=== PATIENT | female | born 1935 | race Caucasian/White ===

== ENCOUNTER → 2016-10-27 | Outpatient (REF) | payer MEDICARE, OTHER ==
[~2016-10-27] MED LIST: /ALEN7SOL OR; /ONDA4TA OR; /WARF25TA OR; ASPI1TAB PO; ASPI81TA83 OR; ATEN25TA; ATEN25TA OR; ATOR1TAB19 PO; BABY81CH; BREO1INH3 INH; CALC1TAB21 PO; CALC600T10; CALCCHW12 OR; CELE20TA PO; COLA100C2 OR; COLACE; CORE25TA PO; COREG PO; FLEC50TA2; FLEC50TA2 OR; HYDR10TA3; HYDR500C PO; HYDROXYUREA; HYDROXYUREA OR; I CAPS; INCR1INH INH; ISOS30TAB PO; KEFL500C OR; LASI40TA OR; LASI40TA PO; LIPI10TA; LIPI10TA OR; LISI10TA4 OR; LISI10TA4 PO; LISI30TA4 PO; LISI5TAB; LISI5TAB OR; LISIPOW PO; MIRA255PW OR; MOM30SS OR; MULTIVIT; MULTIVIT OR; MYRB25TA PO; OSTEO BI FLEX; OSTEOBIFLEX PO; OSTETAB4 PO; OXYC1TAB23 PO; PAIN325T OR; PERC5TAB8 OR; PERC7.5T8 OR; PERCOCET OR; PROA1AER INH; ROPI0.5T PO; SENO8.6T9 OR; SPIRPOW PO; TACLONEX TOP; TRAM50TA2; TYLE325T5 PO; ULTR37.52 PO; ULTRAVATE TOP; ULTRTA OR; VIT D 2000 OR; VITA-121 PO; VITA100C7; VITAMIN D50000 UNT; VITMTA PO; [UNRECOGNIZED DRUG - OTHER] TOP; celexa OR; osteobiflex OR
[2016-10-27 11:58] LABS: ALBUMIN 3.3 GM/DL (3.2-5.2); ALBUMIN/GLOBULIN RATIO 1.43 (1.00-1.93); BILIRUBIN,TOTAL 0.8 MG/DL (0.2-1.0); CALCIUM LEVEL 9.4 MG/DL (8.8-10.2); CREATININE FOR GFR 1.08 MG/DL (0.55-1.02); GLOMERULAR FILTRATION RATE 51.6 (>32); POTASSIUM SERUM 4.7 MEQ/L (3.5-5.1); TOTAL PROTEIN 5.6 GM/DL (6.4-8.2)
== END ==
LOC: M SFHCPLAZ 08:56
PROVIDERS: ATTEND Internal Medicine
DX: I10 Essential (primary) hypertension (principal); E78.00 Pure hypercholesterolemia, unspecified

== ENCOUNTER 2016-11-04 11:56 | Outpatient (RCR) | payer MEDICARE, OTHER | END 2016-11-10 | LOC: M PT 11:56 | PROVIDERS: ATTEND Physician Assistant | DX: Z51.89 Encounter for other specified aftercare (principal); M25.512 Pain in left shoulder; M79.632 Pain in left forearm | CPT/HCPCS: 97022; 97110; 97140; 97161; 97165; G8984; G8985 ==

== ENCOUNTER → 2016-11-06 | Outpatient (REF) | payer MEDICARE, OTHER ==
[2016-11-06 12:57] LABS: PERCENT SATURATION 54.4 % (13.2-37.4)
== END ==
LOC: M LAB REF 12:29
PROVIDERS: ATTEND Internal Medicine Medical Oncology
DX: D47.3 Essential (hemorrhagic) thrombocythemia (principal)

== ENCOUNTER → 2016-11-10 | Outpatient (REF) | payer MEDICARE, OTHER | LOC: M SFHCPLAZ 11:11 | PROVIDERS: ATTEND Dermatology | DX: D22.62 Melanocytic nevi of left upper limb, including shoulder (principal); L57.8 Other skin changes due to chronic exposure to nonionizing radiation; D04.61 Carcinoma in situ of skin of right upper limb, including shoulder; C44.622 Squamous cell carcinoma of skin of right upper limb, including shoulder; C44.599 Other specified malignant neoplasm of skin of other part of trunk ==

== ENCOUNTER → 2017-01-07 | Outpatient (REF) | payer MEDICARE, OTHER | LOC: M LAB REF 10:15 | PROVIDERS: ATTEND Surgery | DX: C44.519 Basal cell carcinoma of skin of other part of trunk (principal) ==

== ENCOUNTER → 2017-02-04 | Outpatient (REF) | payer MEDICARE, OTHER | LOC: M SFHCPLAZ 15:42 | PROVIDERS: ATTEND Nurse Practitioner Adult Health | DX: R35.0 Frequency of micturition (principal) | CPT/HCPCS: 81002; 87088; 87186; G0463 ==

== ENCOUNTER → 2017-03-03 | Day surgery (SDC) | payer MEDICARE, OTHER ==
[~2017-03-03] VITALS: Ht 165.1 cm; Wt 63.5 kg
[~2017-03-03] MED LIST changes: +ACETAMINOPHEN 325 MG TAB PO PRN; +ACETAMINOPHEN TAB 650MG DOSE (2X325MG) PO PRN; +AcetaZOLAMIDE 500 MG ER CAP PO ONE; +BSS with VANC/TOB/EPI for EYE CASES IR ONE; +CYCLOPENTOLATE 2% OPHTH SOLN 2ML BTL As Ordered ONE; +CYCLOPENTOLATE 2% OPHTH SOLN 2ML BTL OD ONE; +D5W/0.2% SODIUM CHLORIDE 1,000 ML IV SCH; +D5W/0.2% SODIUM CHLORIDE 250 ML IV ONE; +HEALON DUET (HEALON 10MG/ML 0.55ML & HEALON ENDOCOAT 30MG/ML 0.85ML) As Ordered ONE; +KETOROLAC 0.5% OPHTH SOLN OD ONE; +LIDOCAINE 1% SDV 5 ML VIAL As Ordered ONE; +LIDOCAINE 4% INJ 5 ML AMP OU ONE; +MIDAZOLAM INJ 2 MG/2 ML VIAL (J2250) As Ordered ONE; +MOXIFLOXACIN IN BSS 0.25MG/0.25ML INTRACAMERAL INJ (OR EYE ONLY)(J2280) As Ordered ONE; +OFLOXACIN 0.3 % (OCUFLOX) OPTH SOL 5ML As Ordered ONE; +OFLOXACIN 0.3 % (OCUFLOX) OPTH SOL 5ML OD ONE; +ONDANSETRON 4MG/2ML VIAL (J2405) IV PRN; +PHENYLEPHRINE 2.5% OPHTH SOL 2ML As Ordered ONE; +PHENYLEPHRINE 2.5% OPHTH SOL 2ML OD ONE; +POVIDONE-IODINE 5% OPHTH PREP SOL 30ML As Ordered ONE; +PROPARACAINE 0.5% OPHTH SOL 15ML OD PRN; +TRIAMCINOLONE PRES FR 40 MG/ML 1ML(TRIESENCE)(OR EYE ONLY)(J3300 PER 1MG) As Ordered ONE; +TRIMETHOBENZAMIDE 300 MG CAP PO PRN; +TROPICAMIDE 1% OPHTH SOLN 2ML As Ordered ONE; +TROPICAMIDE 1% OPHTH SOLN 2ML OD ONE; +fentaNYL 100 MCG/2 ML INJECTION (J3010) As Ordered ONE
[2017-03-03 12:20] VITALS: BP 160/78
--- NOTE | 2017-03-04 07:22 | RO ---
DATE OF PROCEDURE: 03/03/2017 PREPROCEDURE DIAGNOSES: Cataract right eye, myosis. POSTPROCEDURE DIAGNOSES: Cataract right eye, myosis. PROCEDURE: Femtosecond laser and phacoemulsification of the intraocular lens with lens implantation left eye. Intraocular lens power used was Hoya, 22 diopter. SURGEON: Arthur Angulo MD INTAKE COORDINATOR: None. ANESTHESIA: Local IV standby. FINDINGS: Cataract of right eye. COMPLICATIONS: None. DESCRIPTION OF PROCEDURE: The patient was brought to the operating room and laid in supine position. A lid speculum was placed, and patient was brought under the femtosecond laser. After the satisfactory placement of the patient interface, primary incision, secondary incision, and arcuate incisions with lens fragmentation was done without any complication per plan. The patients interface was then removed and lid speculum removed. Patient was placed under the microscope. The eye was prepped and draped in a sterile fashion for ophthalmic surgery. Lid speculum was placed. The secondary incision was opened, and EndoCoat was injected into the anterior chamber. The temporal clear corneal incision was then opened and capsulorrhexis removed, followed by hydrodissection. This was followed by phacoemulsification of the lens within the capsular bag. Cortical material was then aspirated, and Healon was injected into the capsular bag. Intraocular lens was then placed. Excess Healon was aspirated. Wound was hydrated. The lid speculum was removed, and patient was returned to the recovery room in stable condition. ADDENDUM: Because of the small pupil, after entering the anterior chamber with EndoCoat and opening the site port incision, Healon was placed underneath the iris to separate the anterior capsule from the iris and from the temporal clear corneal incision. The Malyugin ring was inserted prior to phacoemulsification. This Malyugin ring was then removed after placement of the intraocular lens.
== END | disposition home or self-care (01) ==
LOC: M SDC 10:20
PROVIDERS: ATTEND Ophthalmology
DX: H26.9 Unspecified cataract (principal); H57.03 Miosis; R94.31 Abnormal electrocardiogram [ECG] [EKG]; I49.9 Cardiac arrhythmia, unspecified; I10 Essential (primary) hypertension; E78.00 Pure hypercholesterolemia, unspecified; R60.0 Localized edema; R23.3 Spontaneous ecchymoses; J44.9 Chronic obstructive pulmonary disease, unspecified; M48.00 Spinal stenosis, site unspecified; Z79.899 Other long term (current) drug therapy; Z79.82 Long term (current) use of aspirin; Z85.828 Personal history of other malignant neoplasm of skin; Z87.81 Personal history of (healed) traumatic fracture; Z90.710 Acquired absence of both cervix and uterus; Z78.0 Asymptomatic menopausal state; Z96.653 Presence of artificial knee joint, bilateral; Z96.642 Presence of left artificial hip joint; Z95.0 Presence of cardiac pacemaker
CPT/HCPCS: 66982; J2250; J2280; J3010; J3300; V2632

== ENCOUNTER → 2017-03-10 | Day surgery (SDC) | payer MEDICARE, OTHER ==
[~2017-03-10] VITALS: Ht 165.1 cm; Wt 63.5 kg
[~2017-03-10] MED LIST changes: -ACETAMINOPHEN TAB 650MG DOSE (2X325MG) PO PRN; -CYCLOPENTOLATE 2% OPHTH SOLN 2ML BTL As Ordered ONE; -CYCLOPENTOLATE 2% OPHTH SOLN 2ML BTL OD ONE; +CYCLOPENTOLATE 2% OPHTH SOLN 2ML BTL OS ONE; -D5W/0.2% SODIUM CHLORIDE 1,000 ML IV SCH; -KETOROLAC 0.5% OPHTH SOLN OD ONE; +KETOROLAC 0.5% OPHTH SOLN OS ONE; +LABETALOL HCL 100 MG/20 ML VIAL As Ordered ONE; -OFLOXACIN 0.3 % (OCUFLOX) OPTH SOL 5ML As Ordered ONE; -OFLOXACIN 0.3 % (OCUFLOX) OPTH SOL 5ML OD ONE; +OFLOXACIN 0.3 % (OCUFLOX) OPTH SOL 5ML OS ONE; -ONDANSETRON 4MG/2ML VIAL (J2405) IV PRN; -PHENYLEPHRINE 2.5% OPHTH SOL 2ML As Ordered ONE; -PHENYLEPHRINE 2.5% OPHTH SOL 2ML OD ONE; +PHENYLEPHRINE 2.5% OPHTH SOL 2ML OS ONE; -PROPARACAINE 0.5% OPHTH SOL 15ML OD PRN; +PROPARACAINE 0.5% OPHTH SOL 15ML OS PRN; -TROPICAMIDE 1% OPHTH SOLN 2ML As Ordered ONE; -TROPICAMIDE 1% OPHTH SOLN 2ML OD ONE; +TROPICAMIDE 1% OPHTH SOLN 2ML OS ONE; +hydrALAZINE INJ 20 MG/ML VIAL As Ordered ONE
--- NOTE | 2017-03-10 11:08 | RO ---
DATE OF PROCEDURE: 03/10/2017 PREPROCEDURE DIAGNOSES: Cataract left eye, myosis of the left eye. POSTPROCEDURE DIAGNOSES: Cataract left eye, myosis of the left eye. PROCEDURE: Femtosecond laser with phacoemulsification, intraocular lens implantation, along with placement of the Malyugin ring. SURGEON: Dr. Arthur Angulo DISTRIBUTOR ADVERTISING MATERIAL: None. ANESTHESIA: Local IV standby. COMPLICATIONS: None. DESCRIPTION OF PROCEDURE: The patient was brought to the operating room and laid in supine position. A lid speculum was placed, and patient was brought under the femtosecond laser. After the satisfactory placement of the patient interface, primary incision, secondary incision, and arcuate incisions with lens fragmentation was done without any complication per plan. The patients interface was then removed and lid speculum removed. Prior to phacoemulsification, Healon was placed between the iris and the anterior capsule and Malyugin ring was inserted because of a small pupil. This ring was then removed after placement of the intraocular lens. Patient was placed under the microscope. The eye was prepped and draped in a sterile fashion for ophthalmic surgery. Lid speculum was placed. The secondary incision was opened and EndoCoat was injected into the anterior chamber. The temporal clear coronal incision was then opened and capsulorrhexis removed, followed by hydrodissection. This was followed by phacoemulsification of the lens within the capsular bag. Cortical material was then aspirated, and Healon was injected into the capsular bag. Intraocular lens was then placed. Excess Healon was aspirated. Wound was hydrated. The lid speculum was removed, and patient was returned to the recovery room in stable condition.
[2017-03-10 11:50] VITALS: BP 175/89
== END | disposition home or self-care (01) ==
LOC: M SDC 08:50
PROVIDERS: ATTEND Ophthalmology
DX: H25.12 Age-related nuclear cataract, left eye (principal); H57.03 Miosis; I11.9 Hypertensive heart disease without heart failure; R94.31 Abnormal electrocardiogram [ECG] [EKG]; E78.00 Pure hypercholesterolemia, unspecified; I49.9 Cardiac arrhythmia, unspecified; M81.0 Age-related osteoporosis without current pathological fracture; E78.5 Hyperlipidemia, unspecified; R60.0 Localized edema; R23.3 Spontaneous ecchymoses; F41.8 Other specified anxiety disorders; M19.90 Unspecified osteoarthritis, unspecified site; G25.81 Restless legs syndrome; J44.9 Chronic obstructive pulmonary disease, unspecified; D47.1 Chronic myeloproliferative disease; Z91.048 Other nonmedicinal substance allergy status; Z79.899 Other long term (current) drug therapy; Z79.82 Long term (current) use of aspirin; Z79.51 Long term (current) use of inhaled steroids; Z95.0 Presence of cardiac pacemaker; Z90.710 Acquired absence of both cervix and uterus; Z96.642 Presence of left artificial hip joint; Z96.653 Presence of artificial knee joint, bilateral; Z87.81 Personal history of (healed) traumatic fracture; Z85.828 Personal history of other malignant neoplasm of skin; Z87.891 Personal history of nicotine dependence; Z86.010 Personal history of colon polyps
CPT/HCPCS: 66982; J2250; J2280; J3010; J3300; V2632

== ENCOUNTER → 2017-04-02 | Outpatient (REF) | payer MEDICARE, OTHER ==
[~2017-04-02] MED LIST changes: -ACETAMINOPHEN 325 MG TAB PO PRN; -AcetaZOLAMIDE 500 MG ER CAP PO ONE; -BSS with VANC/TOB/EPI for EYE CASES IR ONE; -CYCLOPENTOLATE 2% OPHTH SOLN 2ML BTL OS ONE; -D5W/0.2% SODIUM CHLORIDE 250 ML IV ONE; -HEALON DUET (HEALON 10MG/ML 0.55ML & HEALON ENDOCOAT 30MG/ML 0.85ML) As Ordered ONE; -KETOROLAC 0.5% OPHTH SOLN OS ONE; -LABETALOL HCL 100 MG/20 ML VIAL As Ordered ONE; -LIDOCAINE 1% SDV 5 ML VIAL As Ordered ONE; -LIDOCAINE 4% INJ 5 ML AMP OU ONE; -MIDAZOLAM INJ 2 MG/2 ML VIAL (J2250) As Ordered ONE; -MOXIFLOXACIN IN BSS 0.25MG/0.25ML INTRACAMERAL INJ (OR EYE ONLY)(J2280) As Ordered ONE; -OFLOXACIN 0.3 % (OCUFLOX) OPTH SOL 5ML OS ONE; -PHENYLEPHRINE 2.5% OPHTH SOL 2ML OS ONE; -POVIDONE-IODINE 5% OPHTH PREP SOL 30ML As Ordered ONE; -PROPARACAINE 0.5% OPHTH SOL 15ML OS PRN; -TRIAMCINOLONE PRES FR 40 MG/ML 1ML(TRIESENCE)(OR EYE ONLY)(J3300 PER 1MG) As Ordered ONE; -TRIMETHOBENZAMIDE 300 MG CAP PO PRN; -TROPICAMIDE 1% OPHTH SOLN 2ML OS ONE; -fentaNYL 100 MCG/2 ML INJECTION (J3010) As Ordered ONE; -hydrALAZINE INJ 20 MG/ML VIAL As Ordered ONE
[2017-04-02 14:38] LABS: FREE T4 1.32 NG/DL (0.76-1.46)
== END ==
LOC: M LAB REF 12:45
PROVIDERS: ATTEND Internal Medicine Medical Oncology
DX: D47.3 Essential (hemorrhagic) thrombocythemia (principal); E03.9 Hypothyroidism, unspecified

== ENCOUNTER → 2017-05-03 | Outpatient (REF) | payer MEDICARE, OTHER ==
[~2017-05-03] MED LIST changes: -PROA1AER INH; +PROAAER10 INH; -ULTR37.52 PO; +ULTR37.54 PO
== END ==
LOC: M SFHCPLAZ 11:55
PROVIDERS: ATTEND Nurse Practitioner Adult Health
DX: R30.0 Dysuria (principal)

== ENCOUNTER → 2017-05-17 | Outpatient (REF) | payer MEDICARE, OTHER ==
[2017-05-17 14:02] LABS: CALCIUM LEVEL 9.2 MG/DL (8.8-10.2); CREATININE FOR GFR 1.03 MG/DL (0.55-1.02); GLOMERULAR FILTRATION RATE 54.3 (>32); POTASSIUM SERUM 4.6 MEQ/L (3.5-5.1)
== END ==
LOC: M SFHCPLAZ 11:56
PROVIDERS: ATTEND Nurse Practitioner Adult Health
DX: I10 Essential (primary) hypertension (principal)
CPT/HCPCS: 80048; G0463

== ENCOUNTER → 2017-08-19 | Outpatient (CLI) | payer MEDICARE, OTHER ==
--- NOTE | 2017-08-19 16:39 | REP ---
Duplex carotid sonography: History: Transient ischemic attack. No comparison study. Findings: Antegrade flow was observed in both vertebral arteries. Right carotid: The right common carotid artery is unremarkable. There is minimal mixed plaquing in the bulb and proximal ICA on the right side on two-dimensional scanning. Color flow and spectral Doppler interrogation are unremarkable on the right. Velocity chart right carotid: CCA PSV 91 cm/s ICA PSV 97 cm/s ICA EDV 20 cm/s ECA PSV 1106 cm/s Right ICA/CCA ratio normal 1.1. Impression: 16 of 49% category narrowing in the right ICA by Doppler velocity criteria. Left carotid: The left common carotid artery is unremarkable. There is mixed plaquing in the bulb, proximal ICA and proximal ECA on two-dimensional scanning on the left side. Color flow and spectral Doppler interrogation are unremarkable on the left. Velocity chart left carotid: CCA PSV 86 cm/s ICA PSV 87 cm/s ICA EDV 18 cm/s ECA PSV 90 cm/s Left ICA/CCA ratio 1.0. Impression: 16-49% category narrowing in the left ICA by Doppler velocity criteria, probably near the lower end of this range. Signed by Saad Gonzalez MD 08/19/2017 05:28 P
== END ==
LOC: M RAD 10:25
PROVIDERS: ATTEND Internal Medicine
DX: R29.818 Other symptoms and signs involving the nervous system (principal); Z86.73 Personal history of transient ischemic attack (TIA), and cerebral infarction without residual deficits
CPT/HCPCS: 17262; 93880; G0463

== ENCOUNTER → 2017-09-16 | Outpatient (REF) | payer MEDICARE, OTHER | LOC: M SFHCPLAZ 17:02 | PROVIDERS: ATTEND Nurse Practitioner Adult Health | DX: R35.0 Frequency of micturition (principal) ==

== ENCOUNTER → 2017-10-06 | Outpatient (REF) | payer MEDICARE, OTHER ==
[2017-10-06 19:09] LABS: CALCIUM OXALATE CRYSTALS SMALL
== END ==
LOC: M LAB REF 17:01
DX: N32.81 Overactive bladder (principal)
CPT/HCPCS: 81001

== ENCOUNTER → 2017-11-03 | Outpatient (CLI) | payer MEDICARE, OTHER | LOC: M RAD 10:24 | DX: Z12.31 Encounter for screening mammogram for malignant neoplasm of breast (principal) | CPT/HCPCS: 77067 ==

== ENCOUNTER → 2017-11-16 | Outpatient (REF) | payer MEDICARE, OTHER ==
[2017-11-16 18:28] LABS: APPEARANCE, URINE HAZY (CLEAR); BACTERIA, URINE AUTO 1+ (NEGATIVE); BILIRUBIN, URINE AUTO NEGATIVE (NEGATIVE); BLOOD, URINE BLOOD NEGATIVE (NEGATIVE); CALCIUM OXALATE CRYSTALS MODERATE; COLOR, URINE AMBER (YELLOW); GLUCOSE, URINE (UA) AUTO NEGATIVE (NEGATIVE); KETONE, URINE AUTO TRACE mg/dL (NEGATIVE); LEUKOCYTE ESTERASE, URINE AUTO TRACE (NEGATIVE); MUCUS, URINE SMALL (NEGATIVE); NITRITE, URINE AUTO NEGATIVE (NEGATIVE); PROTEIN, URINE AUTO 1+ mg/dL (NEGATIVE); RBC, URINE AUTO 3 /HPF (0-3); SQUAMOUS EPITHELIAL CELL UR AU 0 /HPF (0-6); WBC, URINE AUTO 6 /HPF (0-3)
== END ==
LOC: M LAB REF 17:58
DX: N32.81 Overactive bladder (principal); N39.41 Urge incontinence; N39.42 Incontinence without sensory awareness
CPT/HCPCS: 81001

== ENCOUNTER 2017-12-30 09:24 | Day surgery (SDC) | payer MEDICARE, OTHER ==
[2017-12-30] MEDS: LR 1,000 ML IV (10:14)
[2017-12-30] MEDS ORDERED: MIDAZOLAM INJ 2 MG/2 ML VIAL (J2250) As Ordered (11:39)
[2017-12-30] MEDS ORDERED: PROPOFOL 200 MG/20 ML VIAL As Ordered (11:46)
[2017-12-30] MEDS ORDERED: LIDOCAINE 2% INJ 100 MG/5 ML SDV (FOR ANES.) As Ordered (11:46)
[2017-12-30] MEDS ORDERED: fentaNYL 100 MCG/2 ML INJECTION (J3010) As Ordered (11:46)
[2017-12-30] MEDS: BUPIVACAINE HCL 0.25% 10 ML VIAL As Ordered (11:56)
[2017-12-30] MEDS ORDERED: NORCO, ANEXSIA 5/325MG TABLET (HYDROcodone/ACETAMINOPHEN) PO (13:00)
[2017-12-30] MEDS ORDERED: LR 1,000 ML IV (13:00)
[2017-12-30] MEDS ORDERED: ONDANSETRON 4MG/2ML VIAL (J2405) IV (13:00)
[2017-12-30] MEDS ORDERED: fentaNYL 100 MCG/2 ML INJECTION (J3010) IV (13:00)
[2017-12-30] MEDS: LISINOPRIL 20 MG TAB PO (13:50)
== END 2017-12-30 15:28 | disposition home or self-care (01) ==
LOC: M SDC 09:24
DX: N36.42 Intrinsic sphincter deficiency (ISD) (principal); R32 Unspecified urinary incontinence; I11.9 Hypertensive heart disease without heart failure; E78.00 Pure hypercholesterolemia, unspecified; R94.31 Abnormal electrocardiogram [ECG] [EKG]; I49.9 Cardiac arrhythmia, unspecified; R60.0 Localized edema; R23.3 Spontaneous ecchymoses; F41.9 Anxiety disorder, unspecified; F32.9 Major depressive disorder, single episode, unspecified; Z79.899 Other long term (current) drug therapy; Z79.82 Long term (current) use of aspirin; Z85.828 Personal history of other malignant neoplasm of skin; Z95.0 Presence of cardiac pacemaker; Z96.1 Presence of intraocular lens; Z85.79 Personal history of other malignant neoplasms of lymphoid, hematopoietic and related tissues; Z87.891 Personal history of nicotine dependence; Z87.81 Personal history of (healed) traumatic fracture; Z86.73 Personal history of transient ischemic attack (TIA), and cerebral infarction without residual deficits; Z96.653 Presence of artificial knee joint, bilateral; Z96.642 Presence of left artificial hip joint; Z90.710 Acquired absence of both cervix and uterus
CPT/HCPCS: 51715

== ENCOUNTER → 2018-01-31 | Outpatient (REF) | payer MEDICARE, OTHER ==
[2018-01-31 13:29] LABS: ALBUMIN 3.7 GM/DL (3.2-5.2); ALBUMIN/GLOBULIN RATIO 1.19 (1.00-1.93); ALKALINE PHOSPHATASE 74 U/L (45-117); ALT/SGPT 24 U/L (12-78); ANION GAP 7 MEQ/L (8-16); AST/SGOT 25 U/L (7-37); BILIRUBIN,TOTAL 1.1 MG/DL (0.2-1.0); BLOOD UREA NITROGEN 18 MG/DL (7-18); CALCIUM LEVEL 9.4 MG/DL (8.8-10.2); CARBON DIOXIDE LEVEL 29 MEQ/L (21-32); CHLORIDE LEVEL 104 MEQ/L (98-107); CHOLESTEROL LEVEL 179 MG/DL (<200); CREATININE FOR GFR 1.02 MG/DL (0.55-1.30); GLUCOSE, FASTING 93 MG/DL (70-100); HDL CHOLESTEROL 57 MG/DL (>40); LDL CHOLESTEROL 107.6 MG/DL (<100); MAGNESIUM LEVEL 2.4 MG/DL (1.8-2.4); NON-HDL-C 122 MG/DL; POTASSIUM SERUM 4.7 MEQ/L (3.5-5.1); SODIUM LEVEL 140 MEQ/L (136-145); TOTAL PROTEIN 6.8 GM/DL (6.4-8.2); TRIGLYCERIDES LEVEL 72 MG/DL (<150)
== END ==
LOC: M SFHCPLAZ 09:10
DX: I10 Essential (primary) hypertension (principal); E78.00 Pure hypercholesterolemia, unspecified; I47.1 Supraventricular tachycardia; I49.5 Sick sinus syndrome
CPT/HCPCS: 83735

== ENCOUNTER 2018-02-24 21:09 | Inpatient (IN) | payer MEDICARE, OTHER ==
[2018-02-24 21:52] LABS: BASO # 0.1 10^3/uL (0.0-0.2); BASO % 0.9 % (0.0-1.0); EOS # 0.2 10^3/uL (0.0-0.50); EOS % 2.1 % (0.0-3.0); HEMATOCRIT 38.6 % (36.0-47.0); HEMOGLOBIN 12.6 g/dl (12.0-15.5); IMMATURE GRANULOCYTE % 0.4 % (0-3.0); LYMPH # 1.3 10^3/uL (1.5-4.5); LYMPH % 14.7 % (24.0-44.0); MEAN CORPUSCULAR HEMOGLOBIN 36.3 pg (27.0-33.0); MEAN CORPUSCULAR HGB CONC 32.6 g/dl (32.0-36.5); MEAN CORPUSCULAR VOLUME 111.2 fl (80.0-96.0); MONO # 0.6 10^3/uL (0.0-0.8); MONO % 6.9 % (0.0-5.0); NEUTROPHILS # 6.7 10^3/uL (1.8-7.7); PLATELET COUNT, AUTOMATED 435 10^3/uL (150-450); RED BLOOD COUNT 3.47 10^6/uL (4.00-5.40)
[2018-02-24 21:56] LABS: PROTHROMBIN TIME 13.3 SECONDS (12.4-14.5)
[2018-02-24 21:57] LABS: PARTIAL THROMBOPLASTIN TIME 31.1 SECONDS (26.8-37.9)
[2018-02-24 22:10] LABS: ALBUMIN 3.5 GM/DL (3.2-5.2); ALBUMIN/GLOBULIN RATIO 1.03 (1.00-1.93); ALKALINE PHOSPHATASE 84 U/L (45-117); ALT/SGPT 27 U/L (12-78); ANION GAP 5 MEQ/L (8-16); AST/SGOT 26 U/L (7-37); BILIRUBIN,DIRECT 0.1 MG/DL (0.0-0.2); BILIRUBIN,TOTAL 0.7 MG/DL (0.2-1.0); BLOOD UREA NITROGEN 23 MG/DL (7-18); CALCIUM LEVEL 8.8 MG/DL (8.8-10.2); CARBON DIOXIDE LEVEL 29 MEQ/L (21-32); CHLORIDE LEVEL 107 MEQ/L (98-107); CK-MB VALUE MASS < 1.0 NG/ML (<3.6); CPK CREATINE PHOSPHOKINASE 46 U/L (26-192); CREATININE FOR GFR 1.07 MG/DL (0.55-1.30); GLOMERULAR FILTRATION RATE 51.9 (>32); GLUCOSE, FASTING 107 MG/DL (70-100); MB/CK RELATIVE INDEX 2.17 (< OR =4); SODIUM LEVEL 141 MEQ/L (136-145); TOTAL PROTEIN 6.9 GM/DL (6.4-8.2); TROPONIN I < 0.02 NG/ML (< 0.10)
[2018-02-24] MEDS: LABETALOL HCL 100 MG/20 ML VIAL IV ×2 (22:12→22:42)
[2018-02-24] MEDS ORDERED: zolPIDEM TARTRATE 5 MG TAB PO (23:15)
[2018-02-25] MEDS: FUROSEMIDE 20 MG/2 ML VIAL (J1940) IV (00:52)
[2018-02-25] MEDS: hydrALAZINE INJ 20 MG/ML VIAL IV (00:54)
[2018-02-25] MEDS: niCARdipine IV 40 MG in APPROPRIATE DILUENT 1 EA IV (02:41)
[2018-02-25] MEDS: ACETAMINOPHEN TAB 650MG DOSE (2X325MG) PO (05:06)
[2018-02-25 05:34] LABS: ANION GAP 8 MEQ/L (8-16); BLOOD UREA NITROGEN 24 MG/DL (7-18); CARBON DIOXIDE LEVEL 27 MEQ/L (21-32); CHLORIDE LEVEL 105 MEQ/L (98-107); CREATININE FOR GFR 0.89 MG/DL (0.55-1.30); GLOMERULAR FILTRATION RATE > 60.0 (>32); GLUCOSE, FASTING 113 MG/DL (70-100); POTASSIUM SERUM 3.7 MEQ/L (3.5-5.1); SODIUM LEVEL 140 MEQ/L (136-145); TROPONIN I < 0.02 NG/ML (< 0.10)
[2018-02-25] MEDS: rOPINIRole 2MG TAB PO (07:14)
[2018-02-25] MEDS: MULTIVITAMINS/MINERALS THERAP 1 TAB PO (09:01)
[2018-02-25] MEDS: ASPIRIN 81 MG ENTERIC TAB PO (09:01)
[2018-02-25] MEDS: VITAMIN D 1,000 INTERNATIONAL UNITS TABLET PO (09:01)
[2018-02-25] MEDS: LISINOPRIL 20 MG TAB PO (09:01)
[2018-02-25] MEDS: CYANOCOBALAMIN 500 MCG TAB PO (09:02)
[2018-02-25] MEDS: CitaloPRAM (CeleXA) 20 MG TAB PO (09:02)
[2018-02-25] MEDS: HYDROXYUREA 500 MG CAP PO (09:02)
[2018-02-25] MEDS: ATORVASTATIN 10 MG TAB PO (09:02)
[2018-02-25] MEDS: ISOSORBIDE MON. (IMDUR) 30 MG XR TAB PO (09:03)
[2018-02-25] MEDS: CARVedilol 12.5 MG TAB PO (09:03)
[2018-02-25] MEDS: ENOXAPARIN 30 MG/0.3 ML SYR (J1650) SC (09:03)
[2018-02-25 13:50] LABS: TROPONIN I 0.02 NG/ML (< 0.10)
[2018-02-25] MEDS: ULTRACET TAB PO (17:52)
[2018-02-25 22:06] LABS: TROPONIN I 0.02 NG/ML (< 0.10)
[2018-02-26 04:39] LABS: BASO # 0.1 10^3/uL (0.0-0.2); BASO % 0.6 % (0.0-1.0); EOS # 0.2 10^3/uL (0.0-0.50); EOS % 2.1 % (0.0-3.0); HEMATOCRIT 36.7 % (36.0-47.0); HEMOGLOBIN 12.2 g/dl (12.0-15.5); IMMATURE GRANULOCYTE % 0.7 % (0-3.0); LYMPH # 1.5 10^3/uL (1.5-4.5); MEAN CORPUSCULAR HEMOGLOBIN 36.4 pg (27.0-33.0); MEAN CORPUSCULAR HGB CONC 33.2 g/dl (32.0-36.5); MEAN CORPUSCULAR VOLUME 109.6 fl (80.0-96.0); MONO # 0.7 10^3/uL (0.0-0.8); MONO % 6.7 % (0.0-5.0); NEUTROPHILS # 7.5 10^3/uL (1.8-7.7); NEUTROPHILS % 74.9 % (36.0-66.0); PLATELET COUNT, AUTOMATED 382 10^3/uL (150-450); RED BLOOD COUNT 3.35 10^6/uL (4.00-5.40); RED CELL DISTRIBUTION WIDTH 14.8 % (11.5-14.5)
[2018-02-26 04:59] LABS: ANION GAP 5 MEQ/L (8-16); BLOOD UREA NITROGEN 24 MG/DL (7-18); CALCIUM LEVEL 8.7 MG/DL (8.8-10.2); CARBON DIOXIDE LEVEL 31 MEQ/L (21-32); CHLORIDE LEVEL 104 MEQ/L (98-107); CREATININE FOR GFR 0.93 MG/DL (0.55-1.30); GLOMERULAR FILTRATION RATE > 60.0 (>32); GLUCOSE, FASTING 94 MG/DL (70-100); POTASSIUM SERUM 3.7 MEQ/L (3.5-5.1); SODIUM LEVEL 140 MEQ/L (136-145)
[2018-02-26] MEDS: ENOXAPARIN 30 MG/0.3 ML SYR (J1650) SC (08:32)
[2018-02-26] MEDS: HYDROXYUREA 500 MG CAP PO (08:33)
[2018-02-26] MEDS: rOPINIRole 2MG TAB PO (08:33)
[2018-02-26] MEDS: ISOSORBIDE MON. (IMDUR) 30 MG XR TAB PO (08:33)
[2018-02-26] MEDS: CitaloPRAM (CeleXA) 20 MG TAB PO (08:33)
[2018-02-26] MEDS: LISINOPRIL 20 MG TAB PO (08:33)
[2018-02-26] MEDS: CYANOCOBALAMIN 500 MCG TAB PO (08:34)
[2018-02-26] MEDS: VITAMIN D 1,000 INTERNATIONAL UNITS TABLET PO (08:34)
[2018-02-26] MEDS: MULTIVITAMINS/MINERALS THERAP 1 TAB PO (08:34)
[2018-02-26] MEDS: ASPIRIN 81 MG ENTERIC TAB PO (08:34)
[2018-02-26] MEDS: CARVedilol 12.5 MG TAB PO (08:35)
[2018-03-02] MEDS ORDERED: HYDROXYUREA 500 MG CAP PO (09:00)
== END 2018-02-26 10:37 | disposition home or self-care (01) | DRG 305 ==
LOC: M ICU 02-25 04:16 → M ED 21:09 → M ED INP 23:14
DX: I16.0 Hypertensive urgency (principal); I10 Essential (primary) hypertension; E78.5 Hyperlipidemia, unspecified; Z66 Do not resuscitate; R32 Unspecified urinary incontinence; Z96.653 Presence of artificial knee joint, bilateral; Z96.642 Presence of left artificial hip joint; Z95.0 Presence of cardiac pacemaker; Z79.899 Other long term (current) drug therapy

== ENCOUNTER → 2018-05-25 | Outpatient (REF) | payer MEDICARE, OTHER | LOC: M SFHCLERA 19:13 | DX: D04.4 Carcinoma in situ of skin of scalp and neck (principal); D48.5 Neoplasm of uncertain behavior of skin; C44.722 Squamous cell carcinoma of skin of right lower limb, including hip; D04.61 Carcinoma in situ of skin of right upper limb, including shoulder; D04.62 Carcinoma in situ of skin of left upper limb, including shoulder | CPT/HCPCS: 88305 ==

== ENCOUNTER 2018-05-30 07:51 | Day surgery (SDC) | payer MEDICARE, OTHER ==
[~2018-05-30 07:51] MED LIST changes: -/ALEN7SOL OR; -/ONDA4TA OR; -/WARF25TA OR; -ASPI1TAB PO; -ASPI81TA83 OR; -ATEN25TA; -ATEN25TA OR; -ATOR1TAB19 PO; -BABY81CH; -BREO1INH3 INH; -CALC1TAB21 PO; -CALC600T10; -CALCCHW12 OR; -CELE20TA PO; -COLA100C2 OR; -COLACE; -CORE25TA PO; -COREG PO; -FLEC50TA2; -FLEC50TA2 OR; -HYDR10TA3; -HYDR500C PO; -HYDROXYUREA; -HYDROXYUREA OR; -I CAPS; -INCR1INH INH; -ISOS30TAB PO; -KEFL500C OR; -LASI40TA OR; -LASI40TA PO; -LIPI10TA; -LIPI10TA OR; -LISI10TA4 OR; -LISI10TA4 PO; -LISI30TA4 PO; -LISI5TAB; -LISI5TAB OR; -LISIPOW PO; -MIRA255PW OR; -MOM30SS OR; -MULTIVIT; -MULTIVIT OR; -MYRB25TA PO; +NS 1,000 ML IV; -OSTEO BI FLEX; -OSTEOBIFLEX PO; -OSTETAB4 PO; -OXYC1TAB23 PO; -PAIN325T OR; -PERC5TAB8 OR; -PERC7.5T8 OR; -PERCOCET OR; -PROAAER10 INH; -ROPI0.5T PO; -SENO8.6T9 OR; -SPIRPOW PO; -TACLONEX TOP; -TRAM50TA2; -TYLE325T5 PO; -ULTR37.54 PO; -ULTRAVATE TOP; -ULTRTA OR; -VIT D 2000 OR; -VITA-121 PO; -VITA100C7; -VITAMIN D50000 UNT; -VITMTA PO; -[UNRECOGNIZED DRUG - OTHER] TOP; -celexa OR; -osteobiflex OR
[2018-05-30] MEDS ORDERED: LIDOCAINE 2% INJ 100 MG/5 ML SDV (FOR ANES.) As Ordered (09:28)
[2018-05-30] MEDS ORDERED: PROPOFOL 500 MG/50 ML VIAL As Ordered (09:28)
== END 2018-05-30 10:44 | disposition home or self-care (01) ==
LOC: M OPP 07:51
DX: K64.0 First degree hemorrhoids (principal); D12.0 Benign neoplasm of cecum; K57.30 Diverticulosis of large intestine without perforation or abscess without bleeding; Z86.010 Personal history of colon polyps; D64.9 Anemia, unspecified; K63.5 Polyp of colon; I10 Essential (primary) hypertension; D47.1 Chronic myeloproliferative disease; J44.9 Chronic obstructive pulmonary disease, unspecified; R00.1 Bradycardia, unspecified; M48.00 Spinal stenosis, site unspecified; E78.5 Hyperlipidemia, unspecified; M81.0 Age-related osteoporosis without current pathological fracture; Z79.82 Long term (current) use of aspirin; Z79.891 Long term (current) use of opiate analgesic; Z79.899 Other long term (current) drug therapy; Z88.8 Allergy status to other drugs, medicaments and biological substances; Z91.89 Other specified personal risk factors, not elsewhere classified; Z90.710 Acquired absence of both cervix and uterus; Z95.0 Presence of cardiac pacemaker; Z86.73 Personal history of transient ischemic attack (TIA), and cerebral infarction without residual deficits; Z85.9 Personal history of malignant neoplasm, unspecified; Z86.2 Personal history of diseases of the blood and blood-forming organs and certain disorders involving the immune mechanism; Z96.653 Presence of artificial knee joint, bilateral; Z96.642 Presence of left artificial hip joint
CPT/HCPCS: 45385

== ENCOUNTER → 2018-06-29 | Outpatient (REF) | payer MEDICARE, OTHER ==
[2018-06-29 13:46] LABS: APPEARANCE, URINE CLEAR (CLEAR); BACTERIA, URINE AUTO NEGATIVE (NEGATIVE); BILIRUBIN, URINE AUTO NEGATIVE (NEGATIVE); BLOOD, URINE BLOOD NEGATIVE (NEGATIVE); COLOR, URINE YELLOW (YELLOW); GLUCOSE, URINE (UA) AUTO NEGATIVE (NEGATIVE); KETONE, URINE AUTO NEGATIVE (NEGATIVE); LEUKOCYTE ESTERASE, URINE AUTO NEGATIVE (NEGATIVE); NITRITE, URINE AUTO NEGATIVE (NEGATIVE); PROTEIN, URINE AUTO NEGATIVE (NEGATIVE); RBC, URINE AUTO 1 /HPF (0-3); SPECIFIC GRAVITY URINE AUTO 1.016 (1.002-1.035); SQUAMOUS EPITHELIAL CELL UR AU 0 /HPF (0-6); WBC, URINE AUTO 5 /HPF (0-3)
== END ==
LOC: M SFHCPLAZ 12:22
DX: R30.0 Dysuria (principal); I10 Essential (primary) hypertension
CPT/HCPCS: 81001

== ENCOUNTER 2018-07-22 23:34 | Emergency (ER) | payer MEDICARE, OTHER ==
[2018-07-23 01:04] LABS: BASO % 0.5 % (0.0-1.0); EOS # 0.1 10^3/uL (0.0-0.50); EOS % 2.1 % (0.0-3.0); HEMATOCRIT 33.1 % (36.0-47.0); HEMOGLOBIN 11.2 g/dl (12.0-15.5); IMMATURE GRANULOCYTE % 0.5 % (0-3.0); LYMPH # 1.2 10^3/uL (1.5-4.5); LYMPH % 20.8 % (24.0-44.0); MEAN CORPUSCULAR HEMOGLOBIN 38.6 pg (27.0-33.0); MEAN CORPUSCULAR HGB CONC 33.8 g/dl (32.0-36.5); MONO # 0.5 10^3/uL (0.0-0.8); MONO % 8.2 % (0.0-5.0); NEUTROPHILS # 3.8 10^3/uL (1.8-7.7); NEUTROPHILS % 67.9 % (36.0-66.0); PLATELET COUNT, AUTOMATED 281 10^3/uL (150-450); RED CELL DISTRIBUTION WIDTH 15.8 % (11.5-14.5); WHITE BLOOD COUNT 5.6 10^3/uL (4.0-10.0)
[2018-07-23 01:07] LABS: ADD MORPHOLOGY? YES; MEAN CORPUSCULAR VOLUME 114.1 fl (80.0-96.0); POSITIVE MORPH POS FLAG
[2018-07-23 01:31] LABS: ANION GAP 7 MEQ/L (8-16); BLOOD UREA NITROGEN 29 MG/DL (7-18); CALCIUM LEVEL 8.7 MG/DL (8.8-10.2); CARBON DIOXIDE LEVEL 27 MEQ/L (21-32); CHLORIDE LEVEL 106 MEQ/L (98-107); CPK CREATINE PHOSPHOKINASE 38 U/L (26-192); CREATININE FOR GFR 1.11 MG/DL (0.55-1.30); GLOMERULAR FILTRATION RATE 49.7 (>32); GLUCOSE, FASTING 87 MG/DL (70-100); MB/CK RELATIVE INDEX 2.63 (< OR =4); POTASSIUM SERUM 4.4 MEQ/L (3.5-5.1); SODIUM LEVEL 140 MEQ/L (136-145); TROPONIN I < 0.02 NG/ML (< 0.10)
[2018-07-23 01:40] LABS: ANISOCYTOSIS 1+
[2018-07-23 01:42] LABS: PLATELET ESTIMATE NORMAL (NORMAL)
== END 2018-07-23 02:18 | disposition home or self-care (01) ==
LOC: M ED 23:34
DX: I10 Essential (primary) hypertension (principal); Z79.899 Other long term (current) drug therapy; Z79.82 Long term (current) use of aspirin
CPT/HCPCS: 93005

== ENCOUNTER → 2018-08-17 | Outpatient (REF) | payer MEDICARE, OTHER ==
[2018-08-17 12:12] LABS: ALBUMIN 3.1 GM/DL (3.2-5.2); ALBUMIN/GLOBULIN RATIO 1.07 (1.00-1.93); ALKALINE PHOSPHATASE 72 U/L (45-117); ALT/SGPT 31 U/L (12-78); ANION GAP 5 MEQ/L (8-16); AST/SGOT 31 U/L (7-37); BILIRUBIN,TOTAL 1.2 MG/DL (0.2-1.0); BLOOD UREA NITROGEN 23 MG/DL (7-18); CALCIUM LEVEL 9.1 MG/DL (8.8-10.2); CARBON DIOXIDE LEVEL 31 MEQ/L (21-32); CHLORIDE LEVEL 106 MEQ/L (98-107); CREATININE FOR GFR 0.97 MG/DL (0.55-1.30); GLOMERULAR FILTRATION RATE 58.1 (>32); GLUCOSE, FASTING 93 MG/DL (70-100); MAGNESIUM LEVEL 2.3 MG/DL (1.8-2.4); POTASSIUM SERUM 5.2 MEQ/L (3.5-5.1); SODIUM LEVEL 142 MEQ/L (136-145)
== END ==
LOC: M SFHCPLAZ 09:22
DX: I10 Essential (primary) hypertension (principal)
CPT/HCPCS: 83735

== ENCOUNTER 2018-10-17 03:37 | Emergency (ER) | payer MEDICARE, OTHER ==
[~2018-10-17] VITALS: Ht 167.6 cm; Wt 63.6 kg
[~2018-10-17 03:37] MED LIST changes: +/ALEN7SOL OR; +/ONDA4TA OR; +/WARF25TA OR; +AMLO25TA PO; +ASPI1TAB PO; +ASPI81TA83 OR; +ASPI81TAEC PO; +ATEN25TA; +ATEN25TA OR; +ATOR1TAB19 PO; +BABY81CH; +BREO1INH INH; +BREO1INH3 INH; +CALC1TAB21 PO; +CALC1TAB30 PO; +CALC600T10; +CALCCHW12 OR; +CARV12.5 PO; +CELE20TA PO; +COLA100C2 OR; +COLACE; +CORE25TA PO; +COREG PO; +FISH1000 PO; +FLEC50TA2; +FLEC50TA2 OR; +HYDR10TA3; +HYDR500C PO; +HYDR500C3 PO; +HYDROXYUREA; +HYDROXYUREA OR; +I CAPS; +INCR1INH INH; +ISOS30TA4 PO; +ISOS30TAB PO; +KEFL500C OR; +LASI20TA3 PO; +LASI40TA OR; +LASI40TA9 PO; +LIPI10TA; +LIPI10TA OR; +LISI-538 PO; +LISI-672 PO; +LISI10TA4 OR; +LISI10TA4 PO; +LISI5TAB; +LISI5TAB OR; +LISIPOW PO; +MIRA255PW OR; +MOM30SS OR; +MULTIVIT; +MULTIVIT OR; +MYRB25TA PO; -NS 1,000 ML IV; +OSTEO BI FLEX; +OSTEOBIFLEX PO; +OSTETAB4 PO; +OXYC1TAB23 PO; +PAIN325T OR; +PERC5TAB8 OR; +PERC7.5T8 OR; +PERCOCET OR; +PROAAER10 INH; +ROPI0.5T PO; +ROPI4TAB21 PO; +SENO8.6T9 OR; +SPIRPOW PO; +TACLONEX TOP; +TRAM50TA2; +TYLE325T5 PO; +ULTR37.54 PO; +ULTRAVATE TOP; +ULTRTA OR; +VIT D 2000 OR; +VITA-121 PO; +VITA10002 PO; +VITA100C7; +VITA200015 PO; +VITAMIN D50000 UNT; +VITMTA PO; +[UNRECOGNIZED DRUG - CODE] EXT; +[UNRECOGNIZED DRUG - OTHER] TOP; +celexa OR; +osteobiflex OR
[2018-10-17] MEDS ORDERED: cloNIDine 0.1 MG TAB PO ONE (05:30)
[2018-10-17 06:30] VITALS: BP 132/76
[2018-10-19] MEDS ORDERED: HYDR500C PO (10:40)
== END 2018-10-17 06:48 | disposition home or self-care (01) ==
LOC: M ED 03:37
DX: I10 Essential (primary) hypertension (principal); F41.9 Anxiety disorder, unspecified; E78.5 Hyperlipidemia, unspecified; J44.9 Chronic obstructive pulmonary disease, unspecified; M19.90 Unspecified osteoarthritis, unspecified site

== ENCOUNTER → 2018-10-20 | Outpatient (REF) | payer MEDICARE, OTHER ==
[2018-10-26 00:09] LABS: VANILLYLMANDELIC ACID,URINE 3.4 mg/L (Undefined); VANILLYLMANDELIC ACID,URINE 24 2.4 mg/24 hr (0.0-7.5)
== END ==
LOC: M SFHCPLAZ 10:23
PROVIDERS: ATTEND Nurse Practitioner Adult Health
DX: I10 Essential (primary) hypertension (principal)

== ENCOUNTER 2018-11-30 09:46 | Outpatient (RCR) | payer MEDICARE, OTHER | END 2018-12-08 | LOC: M PT 09:46 | PROVIDERS: ATTEND Internal Medicine | DX: Z51.89 Encounter for other specified aftercare (principal); N39.3 Stress incontinence (female) (male) ==

== ENCOUNTER 2018-12-28 15:00 | Outpatient (RCR) | payer MEDICARE, OTHER | END 2019-01-08 | LOC: M PT 15:00 | PROVIDERS: ATTEND Internal Medicine | DX: Z51.89 Encounter for other specified aftercare (principal); N39.3 Stress incontinence (female) (male) ==

== ENCOUNTER → 2019-01-11 | Outpatient (REF) | payer MEDICARE, OTHER ==
[~2019-01-11] MED LIST changes: -/ONDA4TA OR; -/WARF25TA OR; -ASPI1TAB PO; +ASPI81TA26 PO; +COUM1TAB18 OR; -MIRA255PW OR; +ONDA-1 OR; +OXYC1TAB23 OR; -PERCOCET OR; +POLY1POW4 OR
== END ==
LOC: M SFHCPLAZ 10:29
PROVIDERS: ATTEND Dermatology
DX: C44.320 Squamous cell carcinoma of skin of unspecified parts of face (principal); C44.521 Squamous cell carcinoma of skin of breast; L57.0 Actinic keratosis

== ENCOUNTER → 2019-03-07 | Outpatient (REF) | payer MEDICARE, OTHER ==
[~2019-03-07] MED LIST changes: +CYAN100049 PO; -VITA10002 PO
== END ==
LOC: M SFHCPLAZ 17:40
PROVIDERS: ATTEND Dermatology
DX: D23.30 Other benign neoplasm of skin of unspecified part of face (principal)

== ENCOUNTER → 2019-03-09 | Outpatient (CLI) | payer MEDICARE, OTHER ==
[~2019-03-09] MED LIST changes: -CYAN100049 PO; +VITA10002 PO
--- NOTE | 2019-03-09 11:46 | REP ---
Chest two views HISTORY: COPD Comparison: 10/12/2018 An increase in interstitial markings is present in the lungs consistent with chronic interstitial change. The cardiac silhouette is enlarged. The pulmonary vasculature is normal in appearance. The bony structure is intact. A cardiac pacemaker is present. IMPRESSION: 1. Chronic interstitial change. 2. Cardiomegaly. Electronically Signed by Maximilian Perry MD 03/09/2019 11:37 A
== END ==
LOC: M SMT 10:12
PROVIDERS: ATTEND Internal Medicine Pulmonary Disease
DX: J44.9 Chronic obstructive pulmonary disease, unspecified (principal); R06.00 Dyspnea, unspecified; I51.7 Cardiomegaly

== ENCOUNTER → 2019-03-16 | Outpatient (CLI) | payer MEDICARE, OTHER ==
[2019-03-16 09:48] LABS: BASO # 0.1 10^3/uL (0.0-0.2); BASO % 0.7 % (0.0-1.0); EOS # 0.2 10^3/uL (0.0-0.50); EOS % 2.4 % (0.0-3.0); HEMATOCRIT 35.4 % (36.0-47.0); HEMOGLOBIN 11.8 g/dl (12.0-15.5); LYMPH % 15.3 % (24.0-44.0); MEAN CORPUSCULAR HEMOGLOBIN 41.3 pg (27.0-33.0); MEAN CORPUSCULAR HGB CONC 33.3 g/dl (32.0-36.5); MONO # 0.6 10^3/uL (0.0-0.8); MONO % 9.2 % (0.0-5.0); NEUTROPHILS # 4.8 10^3/uL (1.8-7.7); NEUTROPHILS % 71.5 % (36.0-66.0); PLATELET COUNT, AUTOMATED 453 10^3/uL (150-450); RED BLOOD COUNT 2.86 10^6/uL (4.00-5.40); WHITE BLOOD COUNT 6.7 10^3/uL (4.0-10.0)
[2019-03-16 10:05] LABS: MEAN CORPUSCULAR VOLUME 123.8 fl (80.0-96.0)
[2019-03-16 10:12] LABS: ALBUMIN 3.2 GM/DL (3.2-5.2); BILIRUBIN,TOTAL 0.7 MG/DL (0.2-1.0); CALCIUM LEVEL 9.2 MG/DL (8.8-10.2); CREATININE FOR GFR 0.98 MG/DL (0.55-1.30); GLOMERULAR FILTRATION RATE 57.3 (>32); POTASSIUM SERUM 4.7 MEQ/L (3.5-5.1)
[2019-03-16 10:43] LABS: ANISOCYTOSIS 1+; PLATELET ESTIMATE NORMAL (NORMAL)
== END ==
LOC: M LAB 08:55
PROVIDERS: ATTEND Nurse Practitioner Adult Health
DX: E78.5 Hyperlipidemia, unspecified (principal); I10 Essential (primary) hypertension; R06.02 Shortness of breath

== ENCOUNTER → 2019-04-11 | Outpatient (REF) | payer MEDICARE, OTHER ==
[~2019-04-11] MED LIST changes: +CYAN100049 PO; -VITA10002 PO
== END ==
LOC: M SFHCPLAZ 17:07
PROVIDERS: ATTEND Dermatology
DX: D23.5 Other benign neoplasm of skin of trunk (principal)

== ENCOUNTER → 2019-04-20 | Outpatient (REF) | payer MEDICARE, OTHER ==
[2019-04-20 12:55] LABS: CHOLESTEROL RISK RATIO 2.767 (<5); MAGNESIUM LEVEL 2.2 MG/DL (1.8-2.4)
== END ==
LOC: M SFHCPLAZ 08:19
PROVIDERS: ATTEND Internal Medicine
DX: E78.00 Pure hypercholesterolemia, unspecified (principal); I10 Essential (primary) hypertension

== ENCOUNTER 2019-08-22 07:54 | Emergency (ER) | payer MEDICARE, OTHER ==
[~2019-08-22] VITALS: Ht 165.1 cm; Wt 68.3 kg
[2019-08-22] MEDS ORDERED: AMLO5TAB6 PO (08:50)
--- NOTE | 2019-08-22 09:44 | REP ---
Single view chest: 08/22/2019. Indication: Hypertension. Comparison: 03/09/2019. Findings: Elevated right hemidiaphragm and cardiomegaly are redemonstrated. Left-sided dual lead pacer is unchanged in configuration. The leads intact. No air space consolidation is present. Chronic interstitial markings are redemonstrated. Right greater than left chronic glenohumeral degenerative sequelae are noted. Impression: There is no evidence of acute cardiopulmonary process. Cardiomegaly. Stable. Additional chronic changes are stable as well. Electronically Signed by Edi Tay DO 08/22/2019 09:36 A
[2019-08-22 11:13] LABS: ALBUMIN 3.7 GM/DL (3.2-5.2); ALT/SGPT 28 U/L (12-78); BILIRUBIN,TOTAL 1.2 MG/DL (0.2-1.0); BLOOD UREA NITROGEN 21 MG/DL (7-18); CALCIUM LEVEL 9.4 MG/DL (8.8-10.2); CARBON DIOXIDE LEVEL 28 MEQ/L (21-32); CHLORIDE LEVEL 106 MEQ/L (98-107); CREATININE FOR GFR 0.88 MG/DL (0.55-1.30); GLOMERULAR FILTRATION RATE > 60.0 (>32); GLUCOSE, FASTING 95 MG/DL (70-100); POTASSIUM SERUM 5.1 MEQ/L (3.5-5.1); SODIUM LEVEL 138 MEQ/L (136-145)
[2019-08-22 12:09] VITALS: BP 179/80
== END 2019-08-22 12:21 | disposition home or self-care (01) ==
LOC: M ED 07:54
DX: I10 Essential (primary) hypertension (principal); J44.9 Chronic obstructive pulmonary disease, unspecified; F33.9 Major depressive disorder, recurrent, unspecified; E78.00 Pure hypercholesterolemia, unspecified; G25.81 Restless legs syndrome; Z79.899 Other long term (current) drug therapy; Z79.82 Long term (current) use of aspirin

== ENCOUNTER → 2019-11-04 | Outpatient (REF) | payer MEDICARE, OTHER ==
[~2019-11-04] MED LIST changes: +AMLO5TAB6 PO
== END ==
LOC: M LAB REF 15:14
PROVIDERS: ATTEND Internal Medicine Hematology & Oncology
DX: D69.3 Immune thrombocytopenic purpura (principal)

== ENCOUNTER → 2019-12-11 | Outpatient (CLI) | payer MEDICARE, OTHER ==
[~2019-12-11] MED LIST changes: +CITA40TA4 PO; -ROPI0.5T PO; +ROPI0.5T3 PO
[2019-12-11 10:21] LABS: ALBUMIN 3.4 GM/DL (3.2-5.2); BILIRUBIN,TOTAL 0.8 MG/DL (0.2-1.0); CHOLESTEROL RISK RATIO 2.807 (<5); CREATININE FOR GFR 1.08 MG/DL (0.55-1.30); GLOMERULAR FILTRATION RATE 51.2 (>32); POTASSIUM SERUM 4.5 MEQ/L (3.5-5.1); TOTAL PROTEIN 5.8 GM/DL (6.4-8.2)
== END ==
LOC: M LAB 09:16
PROVIDERS: ATTEND Internal Medicine
DX: E78.00 Pure hypercholesterolemia, unspecified (principal); I10 Essential (primary) hypertension

== ENCOUNTER → 2020-01-03 | Outpatient (REF) | payer MEDICARE, OTHER | LOC: M SFHCPLAZ 11:23 | PROVIDERS: ATTEND Internal Medicine | DX: M19.90 Unspecified osteoarthritis, unspecified site (principal) | CPT/HCPCS: 36415; 85652; 86140; G0463 ==

== ENCOUNTER 2020-01-28 21:13 | Emergency (ER) | payer MEDICARE, OTHER ==
[~2020-01-28] VITALS: Ht 167.6 cm; Wt 63.6 kg
[2020-01-28 22:15] VITALS: BP 154/75
--- NOTE | 2020-01-29 19:05 | ECGEPIP ---
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
== END 2020-01-28 22:39 | disposition home or self-care (01) ==
LOC: M ED 21:13
DX: I10 Essential (primary) hypertension (principal); E78.00 Pure hypercholesterolemia, unspecified; Z96.653 Presence of artificial knee joint, bilateral; Z96.642 Presence of left artificial hip joint; Z85.828 Personal history of other malignant neoplasm of skin; Z95.0 Presence of cardiac pacemaker; Z87.891 Personal history of nicotine dependence; Z86.73 Personal history of transient ischemic attack (TIA), and cerebral infarction without residual deficits; Z79.82 Long term (current) use of aspirin; Z79.899 Other long term (current) drug therapy

== ENCOUNTER → 2020-03-06 | Outpatient (CLI) | payer MEDICARE, OTHER ==
[~2020-03-06] MED LIST changes: -LISI-672 PO; +LISI30TA4 PO
[2020-03-06 09:50] LABS: ALBUMIN 3.2 GM/DL (3.2-5.2); BILIRUBIN,TOTAL 0.9 MG/DL (0.2-1.0); CALCIUM LEVEL 8.9 MG/DL (8.8-10.2); CHOLESTEROL RISK RATIO 3.907 (<5); CREATININE FOR GFR 1.07 MG/DL (0.55-1.30); GLOMERULAR FILTRATION RATE 51.6 (>32); MAGNESIUM LEVEL 2.3 MG/DL (1.8-2.4); POTASSIUM SERUM 4.8 MEQ/L (3.5-5.1)
== END ==
LOC: M LAB 08:19
PROVIDERS: ATTEND Internal Medicine
DX: E78.00 Pure hypercholesterolemia, unspecified (principal); I10 Essential (primary) hypertension

== ENCOUNTER → 2020-06-18 | Outpatient (REF) | payer MEDICARE, OTHER ==
[~2020-06-18] MED LIST changes: +AMLO1TAB24 PO; -AMLO5TAB6 PO; +ROPI2TAB24 PO
== END ==
LOC: M LAB REF 18:43
PROVIDERS: ATTEND Dermatology
DX: L57.0 Actinic keratosis (principal); L57.8 Other skin changes due to chronic exposure to nonionizing radiation
CPT/HCPCS: 11102; 11103; 88305; G0463

== ENCOUNTER → 2020-07-04 | Outpatient (REF) | payer MEDICARE, OTHER | LOC: M LAB REF 18:06 | PROVIDERS: ATTEND Dermatology | DX: L57.0 Actinic keratosis (principal) ==

== ENCOUNTER → 2020-08-13 | Outpatient (REF) | payer MEDICARE, OTHER | LOC: M LAB REF 09:38 | PROVIDERS: ATTEND Physician Assistant | DX: H00.15 Chalazion left lower eyelid (principal) ==

== ENCOUNTER 2020-08-25 17:17 | Emergency (ER) | payer MEDICARE, OTHER ==
[~2020-08-25] VITALS: Ht 165.1 cm; Wt 66.5 kg
[2020-08-25] MEDS ORDERED: CARVedilol 12.5 MG TAB PO STA (17:51)
[2020-08-25 18:08] VITALS: BP 177/82
--- NOTE | 2020-08-25 18:13 | REPVR ---
PROCEDURE INFORMATION: Exam: XR Chest, 1 View Exam date and time: 08/25/2020 6:01 PM Age: 85 years old Clinical indication: Chest pain; Type not specified TECHNIQUE: Imaging protocol: XR of the chest Views: 1 view. COMPARISON: OR Chest, 1 view 08/22/2019 9:27 AM FINDINGS: Tubes, catheters and devices: The pacemaker pulse generator with battery pack is on the left. Lungs: The lungs are clear. No consolidation. Pleural space: Stable mild blunting of the lateral costophrenic sulci suggest small pleural effusions and/or pleural fibrosis. Heart/Mediastinum: Dual-chamber cardiac pacemaker with leads in satisfactory positions at the right atrial appendage and right ventricular apex. Mild cardiomegaly. Diaphragm: Stable eventration of the lateral aspect of the left hemidiaphragm. 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 Superior subluxation of both humeral heads causes marked narrowing of the acromiohumeral spaces and indicates massive superior rotator cuff tears. Soft tissues: Unremarkable. IMPRESSION: No change from the last chest x-ray 12 months ago. Mild cardiomegaly. The lungs are clear. No acute abnormality. Electronically signed by: Ashish Jain On 08/25/2020 18:13:11 PM
[2020-08-25 18:31] LABS: BASO # 0.1 10^3/uL (0.0-0.2); BASO % 0.9 % (0.0-1.0); EOS # 0.2 10^3/uL (0.0-0.5); HEMATOCRIT 43.1 % (36.0-47.0); HEMOGLOBIN 13.2 g/dl (12.0-15.5); LYMPH # 1.2 10^3/uL (1.5-5.0); LYMPH % 10.4 % (24.0-44.0); MEAN CORPUSCULAR HEMOGLOBIN 30.7 pg (27.0-33.0); MEAN CORPUSCULAR HGB CONC 30.6 g/dl (32.0-36.5); MEAN CORPUSCULAR VOLUME 100.2 fl (80.0-96.0); MONO # 0.7 10^3/uL (0.0-0.8); MONO % 5.7 % (0.0-5.0); PLATELET COUNT, AUTOMATED 549 10^3/uL (150-450); WHITE BLOOD COUNT 11.3 10^3/uL (4.0-10.0)
[2020-08-25 19:14] LABS: ALBUMIN 3.3 GM/DL (3.2-5.2); ALT/SGPT 27 U/L (12-78); BILIRUBIN,DIRECT 0.3 MG/DL (0.0-0.2); BILIRUBIN,TOTAL 0.9 MG/DL (0.2-1.0); BLOOD UREA NITROGEN 24 MG/DL (7-18); CALCIUM LEVEL 8.9 MG/DL (8.8-10.2); CARBON DIOXIDE LEVEL 28 MEQ/L (21-32); CHLORIDE LEVEL 105 MEQ/L (98-107); CK-MB VALUE MASS < 1.0 NG/ML (<3.6); CPK CREATINE PHOSPHOKINASE 46 U/L (26-192); CREATININE FOR GFR 1.06 MG/DL (0.55-1.30); GLOMERULAR FILTRATION RATE 52.2 (>32); GLUCOSE, FASTING 79 MG/DL (70-100); LIPASE 365 U/L (73-393); MB/CK RELATIVE INDEX 2.17 (< OR =4); NT-PRO BNP 4213 PG/ML (<450); POTASSIUM SERUM 5.3 MEQ/L (3.5-5.1); SODIUM LEVEL 138 MEQ/L (136-145); TOTAL PROTEIN 6.3 GM/DL (6.4-8.2); TROPONIN I < 0.02 NG/ML (< 0.10)
[2020-08-25 19:54] VITALS: BP 178/80
--- NOTE | 2020-08-26 10:20 | ECGEPIP ---
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
== END 2020-08-25 19:45 | disposition home or self-care (01) ==
LOC: M ED 17:17
DX: I11.0 Hypertensive heart disease with heart failure (principal); I50.9 Heart failure, unspecified; J44.9 Chronic obstructive pulmonary disease, unspecified; E78.5 Hyperlipidemia, unspecified; F33.9 Major depressive disorder, recurrent, unspecified; F41.9 Anxiety disorder, unspecified; Z95.1 Presence of aortocoronary bypass graft

== ENCOUNTER → 2020-09-21 | Outpatient (CLI) | payer MEDICARE, OTHER ==
[2020-09-21 12:13] LABS: ALBUMIN 3.2 GM/DL (3.2-5.2); BILIRUBIN,TOTAL 0.9 MG/DL (0.2-1.0); CALCIUM LEVEL 8.9 MG/DL (8.8-10.2); CHOLESTEROL RISK RATIO 3.254 (<5); CREATININE FOR GFR 1.09 MG/DL (0.55-1.30); GLOMERULAR FILTRATION RATE 50.5 (>32); MAGNESIUM LEVEL 2.2 MG/DL (1.8-2.4); POTASSIUM SERUM 4.5 MEQ/L (3.5-5.1); TOTAL PROTEIN 6.2 GM/DL (6.4-8.2)
== END ==
LOC: M LAB 11:01
PROVIDERS: ATTEND Internal Medicine
DX: E78.00 Pure hypercholesterolemia, unspecified (principal); I10 Essential (primary) hypertension

== ENCOUNTER → 2020-10-22 | Outpatient (REF) | payer MEDICARE, OTHER | LOC: M LAB REF 12:47 | PROVIDERS: ATTEND Physician Assistant | DX: L57.0 Actinic keratosis (principal) ==

== ENCOUNTER → 2021-01-07 | Outpatient (CLI) | payer MEDICARE, OTHER ==
[~2021-01-07] MED LIST changes: +ASPI-569 PO; -ASPI81TAEC PO; +ISOS1TAB35 PO; -ISOS30TA4 PO; -LISI-538 PO; +LISI10TA22 PO; -LISI10TA4 PO; +LISI20TA33 PO
[2021-01-07 14:12] LABS: ALBUMIN 3.4 GM/DL (3.2-5.2); BILIRUBIN,TOTAL 0.7 MG/DL (0.2-1.0); CREATININE FOR GFR 1.11 MG/DL (0.55-1.30); GLOMERULAR FILTRATION RATE 49.5 (>32); MAGNESIUM LEVEL 2.3 MG/DL (1.8-2.4); POTASSIUM SERUM 4.8 MEQ/L (3.5-5.1); THYROID STIMULATING HORMONE 2.79 uIU/ML (0.358-3.740); TOTAL PROTEIN 6.1 GM/DL (6.4-8.2)
== END ==
LOC: M LAB 12:30
PROVIDERS: ATTEND Internal Medicine
DX: R53.82 Chronic fatigue, unspecified (principal); I10 Essential (primary) hypertension

== ENCOUNTER → 2021-01-21 | Outpatient (REF) | payer MEDICARE, OTHER | LOC: M LAB REF 13:44 | PROVIDERS: ATTEND Physician Assistant | DX: C44.729 Squamous cell carcinoma of skin of left lower limb, including hip (principal); H61.23 Impacted cerumen, bilateral | CPT/HCPCS: 11102; 17000; 17003; 69209; 88305; G0463 ==

== ENCOUNTER 2021-03-08 11:35 | Emergency (ER) | payer MEDICARE, OTHER ==
[~2021-03-08] VITALS: Ht 167.6 cm; Wt 63.6 kg
[2021-03-08] MEDS ORDERED: methocarbamoL 500 MG TAB PO ONE (12:15)
[2021-03-08] MEDS ORDERED: KETOROLAC 60MG 2ML VIAL IM ONE (12:15)
[2021-03-08] MEDS ORDERED: KETOROLAC 30 MG/ML 1ML VIAL IM ONE (12:30)
--- NOTE | 2021-03-08 12:58 | REP ---
INDICATION: fall COMPARISON: None. TECHNIQUE: AP, lateral, and swimmers views. FINDINGS: Alignment and kyphosis is maintained. Osteopenia and multilevel degenerative changes noted. Vertebral bodies intact. No obvious acute fracture / compression injury or subluxation. IMPRESSION: No obvious acute thoracic fracture/compression injury or subluxation. <Electronically signed by Vijay Kam > 03/08/21 0822
--- NOTE | 2021-03-08 13:00 | REP ---
INDICATION: fall COMPARISON: None. TECHNIQUE: AP, lateral, bilateral oblique, and coned-down views of the lumbar spine. FINDINGS: Osteopenia and advanced multilevel degenerative changes are appreciated. Mild retrolisthesis at L2-3 cannot be excluded. No obvious acute fracture/compression injury identified. IMPRESSION: Limited by osteopenia and advanced degenerative changes. No obvious acute fracture/compression injury. <Electronically signed by Vijay Kam > 03/08/21 [id number]
[2021-03-08] MEDS ORDERED: METH-1164 PO (13:15)
[2021-03-08 13:23] VITALS: BP 142/83
[2021-03-09] MEDS ORDERED: METH-1164 PO (16:29)
[2021-03-09] MEDS ORDERED: ACET-683 PO (16:30)
[2021-03-09] MEDS ORDERED: HYDR-3713 PO (21:00)
[2021-03-09] MEDS ORDERED: ONDA4TAB6 PO (21:00)
== END 2021-03-08 13:26 | disposition home or self-care (01) ==
LOC: M ED 11:35
DX: S39.012A Strain of muscle, fascia and tendon of lower back, initial encounter (principal); W07.XXXA Fall from chair, initial encounter; Y92.018 Other place in single-family (private) house as the place of occurrence of the external cause; I10 Essential (primary) hypertension; J44.9 Chronic obstructive pulmonary disease, unspecified; F33.9 Major depressive disorder, recurrent, unspecified; E78.5 Hyperlipidemia, unspecified; Z95.0 Presence of cardiac pacemaker; Z79.899 Other long term (current) drug therapy; Z79.82 Long term (current) use of aspirin
CPT/HCPCS: 72072; 72110; 96372; 99283; J1885

== ENCOUNTER 2021-03-09 16:15 | Emergency (ER) | payer MEDICARE, OTHER ==
[~2021-03-09] VITALS: Ht 165.1 cm; Wt 67.5 kg
[~2021-03-09 16:15] MED LIST changes: +METH-1164 PO
[2021-03-09] MEDS ORDERED: METH-1164 PO (16:29)
[2021-03-09] MEDS ORDERED: ACET-683 PO (16:30)
[2021-03-09] MEDS ORDERED: MORPHINE 2 MG/ML 1ML VIAL (J2270) IV ONE (18:30)
--- NOTE | 2021-03-09 18:42 | REPVR ---
PROCEDURE INFORMATION: Exam: CT Thoracic Spine Without Contrast Exam date and time: 03/09/2021 6:05 PM Age: 86 years old Clinical indication: Injury or trauma; Fall; Blunt trauma (contusions or hematomas) TECHNIQUE: Imaging protocol: Computed tomography images of the thoracic spine without contrast. Radiation optimization: All CT scans at this facility use at least one of these dose optimization techniques: automated exposure control; mA and/or kV adjustment per patient size (includes targeted exams where dose is matched to clinical indication); or iterative reconstruction. COMPARISON: CR Spine, Thoracic 3 VIEWS 03/08/2021 12:28 PM FINDINGS: Vertebrae: Normal vertebral body alignment. Mild facet DJD. Discs/Spinal canal/Neural foramina: Advanced discogenic degenerative changes throughout the thoracic spine. Small calcified posterior disc osteophyte complexes cause mild multilevel central spinal stenosis. Soft tissues: Unremarkable. IMPRESSION: 1. No acute fracture or malalignment. 2. Degenerative spondylosis as above. Electronically signed by: Mario Lynn On 03/09/2021 18:41:49 PM
[2021-03-09] MEDS ORDERED: ONDANSETRON 4MG/2ML VIAL IV ONE (18:45)
--- NOTE | 2021-03-09 18:52 | REPVR ---
PROCEDURE INFORMATION: Exam: CT Lumbar Spine Without Contrast Exam date and time: 03/09/2021 6:05 PM Age: 86 years old Clinical indication: Injury or trauma; Fall; Blunt trauma (contusions or hematomas) TECHNIQUE: Imaging protocol: Computed tomography images of the lumbar spine without contrast. Radiation optimization: All CT scans at this facility use at least one of these dose optimization techniques: automated exposure control; mA and/or kV adjustment per patient size (includes targeted exams where dose is matched to clinical indication); or iterative reconstruction. COMPARISON: CR Spine. Lumbosacral, complete 03/08/2021 12:28 PM FINDINGS: Vertebrae: There are hypoplastic ribs at the T12 level and 5 non rib-bearing lumbar type vertebrae. There is a compression fracture of the T12 vertebral body without significant height loss. No retropulsed bone fragments are seen. No lumbar spine compression fracture. Discs/Spinal canal/Neural foramina: Advanced discogenic degenerative changes throughout the lumbar spine. Degenerative changes cause multilevel spinal stenosis, worst at L1-L2. The L4-L5 disc space is fused. Advanced facet DJD. Soft tissues: Unremarkable. IMPRESSION: 1. Acute T12 compression fracture. No malalignment. 2. Advanced degenerative spondylosis. Electronically signed by: Mario Lynn On 03/09/2021 18:52:33 PM
[2021-03-09] MEDS ORDERED: NORCO 5/325MG TABLET (BULK FOR ED) PO ONE (20:30)
[2021-03-09] MEDS ORDERED: ONDA4TAB6 PO (21:00)
[2021-03-09] MEDS ORDERED: HYDR-3713 PO (21:00)
[2021-03-09 21:08] VITALS: BP 140/80
== END 2021-03-09 21:20 | disposition home or self-care (01) ==
LOC: M ED 16:15
DX: S22.080A Wedge compression fracture of T11-T12 vertebra, initial encounter for closed fracture (principal); W18.39XA Other fall on same level, initial encounter; Y92.89 Other specified places as the place of occurrence of the external cause; Y93.89 Activity, other specified; Y99.8 Other external cause status; I25.10 Atherosclerotic heart disease of native coronary artery without angina pectoris; I10 Essential (primary) hypertension; J44.9 Chronic obstructive pulmonary disease, unspecified; E78.70 Disorder of bile acid and cholesterol metabolism, unspecified; Z79.51 Long term (current) use of inhaled steroids; Z79.82 Long term (current) use of aspirin; Z79.899 Other long term (current) drug therapy; Z86.2 Personal history of diseases of the blood and blood-forming organs and certain disorders involving the immune mechanism; Z85.828 Personal history of other malignant neoplasm of skin; Z87.891 Personal history of nicotine dependence
CPT/HCPCS: 72128; 72131; 96374; 96375; 99284; J2270; J2405

== ENCOUNTER 2021-03-19 14:27 | Inpatient (IN) | payer MEDICARE, OTHER ==
[~2021-03-19] VITALS: Ht 167.6 cm; Wt 65.0 kg
[~2021-03-19 14:27] MED LIST changes: +ACET-683 PO; +HYDR-3713 PO; +ONDA4TAB6 PO
[2021-03-19] MEDS ORDERED: ACETAMINOPHEN TAB 650MG DOSE (2X325MG) PO PRN (15:25)
[2021-03-19 15:45] VITALS: BP 165/73
[2021-03-19] MEDS ORDERED: NORCO, ANEXSIA 5/325MG TABLET (HYDROcodone/ACETAMINOPHEN) PO PRN (15:55)
[2021-03-19 16:17] LABS: HEMATOCRIT 35.2 % (36.0-47.0); HEMOGLOBIN 11.6 g/dl (12.0-15.5); MEAN CORPUSCULAR HEMOGLOBIN 38.7 pg (27.0-33.0); PLATELET COUNT, AUTOMATED 392 10^3/uL (150-450); WHITE BLOOD COUNT 10.3 10^3/uL (4.0-10.0)
[2021-03-19 16:23] LABS: MEAN CORPUSCULAR VOLUME 117.3 fl (80.0-96.0)
[2021-03-19 16:52] LABS: ALBUMIN 3.1 GM/DL (3.2-5.2); BILIRUBIN,TOTAL 1.2 MG/DL (0.2-1.0); CALCIUM LEVEL 8.9 MG/DL (8.8-10.2); CREATININE FOR GFR 0.99 MG/DL (0.55-1.30); GLOMERULAR FILTRATION RATE 56.4 (>32); POTASSIUM SERUM 4.9 MEQ/L (3.5-5.1); TOTAL PROTEIN 5.8 GM/DL (6.4-8.2)
[2021-03-19] MEDS ORDERED: ACETAMINOPHEN 500 MG TAB PO PRN (17:35)
[2021-03-19] MEDS ORDERED: ALBUTEROL 90 MCG/ACT 8GM HFA INHALER INH PRN (17:35)
[2021-03-19] MEDS ORDERED: tiZANidine 4 MG TAB PO PRN (17:35)
[2021-03-19] MEDS ORDERED: TIZA4TAB4 PO (17:45)
[2021-03-19] MEDS ORDERED: ROPI2TAB3 PO (17:45)
[2021-03-19] MEDS ORDERED: BREO1INH3 INH (17:45)
[2021-03-19] MEDS ORDERED: BUPR150T12 PO (17:45)
[2021-03-19] MEDS ORDERED: CARV25TA PO (17:45)
[2021-03-19] MEDS ORDERED: HYDR-3713 PO (17:45)
[2021-03-19] MEDS ORDERED: D31000TA2 PO (17:45)
[2021-03-19] MEDS ORDERED: HYDR500C3 PO ×2 (17:45)
[2021-03-19] MEDS ORDERED: HYDR-3716 PO (17:45)
--- NOTE | 2021-03-19 18:23 | HPEPDOC ---
[facility] Medical History & Physical Date of Admission Mar 19, 2021 Date of Service: Mar 19, 2021 Attending Physician: SMILEY AGEE MD History and Physical CHIEF COMPLAINT: Intractable back pain i/s/o recent t-12 compression fracture following a mechanical fall HISTORY OF PRESENT ILLNESS: 86-year-old W with a history of hypertension, hyperlipidemia, osteoporosis, thrombocythemia, depression, COPD, pacemaker placement in 2011 for history of tachybradycardia syndrome and paroxysmal SVT, who recently suffered a mechanical fall from a rolling stool on 03/06 and later presented to the ED on 03/08 for new back pain during which she had thoracic and lumbar spine XRs that showed no acute fractures and was discharged home, but returned on 03/09 and had CTs of the thoracic and lumbar spine and was found to have an acute T12 compression fracture with no malalignment, with discogenic degenerative changes throughout the lumbar spine as well and was referred to ortho-spine at [facility] where she was seen 3 times (per Dr. Bates, her PCP) and was eventually placed in a brace that she is supposed to be wearing 24h of the day but has been unable to even put it on and has been in excruciating pain at home, is unable to receive much help from her who himself is slowly having some cognitive decline and has therefore been unable to mobilize much and care for self with po or PO and uncontrolled pain. In speaking with Dr. Bates, he requested direct admission for pain control, aggressive bowel regimen for ongoing severe constipation, likely hydration as well and rehabilitation efforts. On her arrival from home, she reported 9/10 thoracic back pain but was not in particular distress. She was a great historian and besides the non radiation mid back pain that is 9/10, she denied any recent fever, chills, chest pain, palpitations, shortness of breath, loss of bowel and bladder control or loss of sensation. On arrival she was hemodynamically stable, afebrile and breathing comfortably on room air. Admission labs were grossly benign with WBC 10.3, Hgb 11.2, platelets 392, na 139, K 4.9, BUN 19, Cr 0.99, lactic acid 1.1, AST 27, ALT 24. 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 She denies any alcohol or drug use. Allergies: Aminoglycosides, bacitracin, neomycin, polymyxin Review of systems: 10 point ROS was negative, except as noted in the HPI. Physical exam: Vital signs: see below Gen.: awake, alert, no acute distress Eyes: Extraocular movements intact, normal sclera ENT: Very dry mucous membranes, no lesions, good dentition Cardiovascular: RRR, no murmurs rubs or gallops Lungs: clear to auscultation bilaterally, no rales, rhonchi, or wheeze Abdomen: Soft, NT/ND, normal BS Musculoskeletal: Left wrist has clear displacement secondary to her fracture Extremities: No peripheral edema of bilateral lower extremities Neuro: alert and oriented 3, normal speech, no focal deficits Psych: AOx3, normal mood with congruent affect, great historian Labs and Imaging: summarized above, please see below for details. Assessment: 86-year-old W with a history of hypertension, hyperlipidemia, osteoporosis, thrombocythemia, depression, COPD, pacemaker placement in 2011 for history of tachybradycardia syndrome and paroxysmal SVT, who recently suffered a mechanical fall from a rolling stool on 03/[address] of the thoracic and lumbar spine showed an acute T12 compression fracture with no malalignment, with discogenic degenerative changes throughout the lumbar spine and ortho-spine at [facility] prescribed a torso brace that she is supposed to be wearing 24h of the day but has been unable to even put it on and has been in excruciating pain at home and now being admitted for pain control, aggressive bowel regimen for ongoing severe constipation, hydration as well and rehabilitation planning. T-12 compression fracture with associated severe back pain: -To place her brace 24 hours per ortho recommendation, as reported by Dr. Bates her PCP -norco 5/325 - 1 tab Q6HP for moderate pain -norco 5/325 - 2 tabs q8HP for severe pain -acetaminophen 650mg q6HP for mild pain -PT/OT evaluation -ARU screen requested Severe constipation i/s/o narcotic therapy -miralax BID -docusate daily -will also give some IVF for dehydration Dehydration: clinically dehydrated on examination with history of poor PO -NS at 100cc/hr HTN: -continue home coreg 12.5 BID and lisinopril 20 QD Thrombocythemia: -Continue home hydroxyurea and ASA 81 Hyperlipidemia: -Continue home statin Depression: -Continue home citalopram COPD: -continue home mdis Pacemaker placement in 2011 for history of tachybradycardia syndrome and paroxysmal SVT: Chronic Anemia: At recent baseline -continue Vit b12 supplementation DVT ppx: heparin SC Dispo: medsur, inpatient and expect a great than 2 midnight stay in acute care. Vital Signs Vital Signs Date Time Temp Pulse Resp B/P (MAP) Pulse Ox O2 Delivery O2 Flow Rate FiO2 03/19/21 15:45 98.3 66 18 165/73 (103) 94 Room Air Laboratory Data Labs 24H Laboratory Tests 2 03/19/21 16:08: Nucleated Red Blood Cells % (auto) 0.0, Anion Gap 8, Glomerular Filtration Rate 56.4, Lactic Acid Level 1.1, Calcium Level 8.9, Total Bilirubin 1.2H, Aspartate Amino Transf (AST/SGOT) 27, Alanine Aminotransferase (ALT/SGPT) 24, Alkaline Phosphatase 96, Total Protein 5.8L, Albumin 3.1L, Albumin/Globulin Ratio 1.1L CBC/BMP Laboratory Tests 03/19/21 16:08 Home Medications Scheduled Acetaminophen (Acetaminophen) 500 Mg Tablet, 2 TAB PO Q6H for fever Albuterol Sulfate (Proair Hfa) 108 Mcg/Act Aer, 2 PUFF INH ASDIRECTED Aspirin (Aspirin EC) 81 Mg Tabec, 2 TAB PO DAILY Atorvastatin Calcium (Atorvastatin Calcium) 10 Mg Tab, 10 MG PO 5XW TAKES WEDNESDAY THROUGH WEDNESDAY IN THE MORNING Calcium Carbonate/Vitamin D3 (Calcium 500-Vit D3 200 Caplet) 1 Tab Tab, 1 TAB PO BID Carvedilol (Carvedilol) 12.5 Mg Tab, 12.5 MG PO BID Cholecalciferol (Vitamin D3) (Vitamin D3) 2,000 Unit Tab, 2,000 UNIT PO DAILY Citalopram Hydrobromide (Citalopram HBr) 40 Mg Tablet, 40 MG PO DAILY Cyanocobalamin (Vitamin B-12) (Vitamin B-12) 1,000 Mcg Tab, 1,000 MCG PO DAILY Fluticasone/Vilanterol (Breo Ellipta 100-25 Mcg INH) 1 Inh Inh, 1 PUFF INH DAILY Hydroxyurea (Hydrea) 500 Mg Cap, 500 TABS PO ASDIRECTED Take 2 tablets by mouth daily, except for Mondays and : take 3 tablets by mouth. Lisinopril (Lisinopril) 20 Mg Tab, 20 MG PO DAILY Multivitamins (Thera M Plus Tablet) 1 Tab Tab, 1 TAB PO DAILY Ropinirole HCl (Ropinirole ER) 4 Mg Tab, 4 MG PO DAILY Umeclidinium Trinchera (Incruse Ellipta) 62.5 Mcg/Inh Inh, 62.5 MCG INH DAILY Scheduled PRN Hydrocodone/Acetaminophen (Hydrocodone-Acetamin 5-325 mg) 1 Each Tablet, 1 TAB PO Q6H PRN for PAIN MDD 4 Ondansetron (Ondansetron Odt) 4 Mg Tab.rapdis, 1 TAB PO Q6-8HP PRN for nausea/vomiting Ropinirole HCl (Ropinirole ER) 2 Mg Tab.er.24h, 1 TAB PO PRN PRN for NEEDED Allergies Coded Allergies: No Known Allergies (Unverified , 01/28/20) A-FIB/CHADSVASC A-FIB History Current/History of A-Fib/PAF?: No Current PO Anticoag Therapy: No Age/Risk Factor Scoring CHADSVASC: CHADSVASC Response (Comments) Value Age Risk Factor Age >/= 75 years old 2 Gender Risk Factor Female 1 Hx of CHF No 0 Hx of HTN Yes 1 Hx of Stroke/TIA/or VTE No 0 Hx of Diabetes No 0 Hx of Vascular Disease Yes 1 Total 5 Treatment Treatment ordered: NONE Reason Anticoagulant not given: Not indicated/[id number] SMILEY AGEE MD Mar 19, 2021 18:23
[2021-03-19] MEDS: ADVAIR HFA 230/21MCG INHALER INH SCH (20:00)
[2021-03-19] MEDS: ONDANSETRON 4MG/2ML VIAL IV PRN (20:34)
[2021-03-19] MEDS: ASPIRIN 81MG ENTERIC TABLET PO SCH (20:34)
[2021-03-19] MEDS: HEPARIN SOD (PORCINE) 5000UNITS/ML 1ML VIAL/SYRINGE SC SCH (20:34)
[2021-03-19] MEDS: CALCIUM/VITAMIN D 500 MG TAB PO SCH (20:34)
[2021-03-19] MEDS: NORCO, ANEXSIA 5/325MG TABLET (HYDROcodone/ACETAMINOPHEN) PO PRN (20:35)
[2021-03-19] MEDS: CARVedilol 12.5 MG TAB PO SCH (20:36)
[2021-03-19] MEDS ORDERED: rOPINIRole 2MG TAB PO SCH (21:00)
[2021-03-19 22:00] VITALS: BP 144/63
[2021-03-19] MEDS: MIRALAX *UNIT DOSE* 17GM PACKET PO SCH (22:45)
[2021-03-19] MEDS: NS 1,000 ML IV SCH (23:25)
[2021-03-20 06:00] VITALS: BP 140/72
[2021-03-20 06:32] LABS: HEMOGLOBIN 11.2 g/dl (12.0-15.5); MEAN CORPUSCULAR HEMOGLOBIN 39.3 pg (27.0-33.0); MEAN CORPUSCULAR HGB CONC 32.9 g/dl (32.0-36.5); PLATELET COUNT, AUTOMATED 416 10^3/uL (150-450); RED BLOOD COUNT 2.85 10^6/uL (4.00-5.40); WHITE BLOOD COUNT 9.2 10^3/uL (4.0-10.0)
[2021-03-20 06:36] LABS: MEAN CORPUSCULAR VOLUME 119.3 fl (80.0-96.0)
[2021-03-20 07:01] LABS: CALCIUM LEVEL 8.3 MG/DL (8.8-10.2); CREATININE FOR GFR 1.03 MG/DL (0.55-1.30); GLOMERULAR FILTRATION RATE 53.8 (>32); MAGNESIUM LEVEL 2.5 MG/DL (1.8-2.4); POTASSIUM SERUM 4.6 MEQ/L (3.5-5.1)
[2021-03-20] MEDS: ADVAIR HFA 230/21MCG INHALER INH SCH (07:27)
[2021-03-20] MEDS ORDERED: TIOTROPIUM INHALER/CAPSULE (SPIRIVA) INH SCH (08:00)
[2021-03-20] MEDS: NS 1,000 ML IV SCH (08:42)
[2021-03-20] MEDS: CALCIUM/VITAMIN D 500 MG TAB PO SCH (08:43)
[2021-03-20] MEDS: MIRALAX *UNIT DOSE* 17GM PACKET PO SCH (08:43)
[2021-03-20] MEDS: ONDANSETRON 4MG/2ML VIAL IV PRN (08:43)
[2021-03-20] MEDS: HEPARIN SOD (PORCINE) 5000UNITS/ML 1ML VIAL/SYRINGE SC SCH (08:43)
[2021-03-20 08:44] VITALS: BP 160/63
[2021-03-20] MEDS: ASPIRIN 81MG ENTERIC TABLET PO SCH (08:44)
[2021-03-20] MEDS: CARVedilol 12.5 MG TAB PO SCH (08:44)
[2021-03-20] MEDS: NORCO, ANEXSIA 5/325MG TABLET (HYDROcodone/ACETAMINOPHEN) PO PRN (08:45)
[2021-03-20] MEDS ORDERED: MULTIVITAMINS/MINERALS THERAP 1 TAB PO SCH (09:00)
[2021-03-20] MEDS ORDERED: CYANOCOBALAMIN 500 MCG TAB PO SCH (09:00)
[2021-03-20] MEDS ORDERED: ATORVASTATIN 10 MG TAB PO SCH (09:00)
[2021-03-20] MEDS ORDERED: CitaloPRAM (CeleXA) 20 MG TAB PO SCH (09:00)
[2021-03-20] MEDS ORDERED: VITAMIN D 1,000 INTERNATIONAL UNITS TABLET PO SCH (09:00)
[2021-03-20] MEDS ORDERED: SENOKOT S TAB PO SCH (09:00)
[2021-03-20] MEDS ORDERED: HYDROXYUREA 500 MG CAP PO SCH (09:00)
[2021-03-20] MEDS ORDERED: buPROPion **XL** TABLET 150MG (WELLBUTRIN XL) PO SCH (09:00)
[2021-03-20] MEDS ORDERED: MIRA1POW3 PO (10:37)
[2021-03-20] MEDS ORDERED: HYDR-3715 PO (10:37)
[2021-03-20 14:00] VITALS: BP 160/63
[2021-03-20] MEDS ORDERED: rOPINIRole 2MG TAB PO SCH (14:00)
--- NOTE | 2021-03-20 15:29 | DS.PDOC ---
Discharge Summary General Date of Admission Mar 19, 2021 at 15:27 Date of Discharge 03/20/2021 Attending Physician: SMILEY AGEE MD Discharge Summary PROCEDURES PERFORMED DURING STAY: None ADMITTING DIAGNOSES: Thoracic compression fracture DISCHARGE DIAGNOSES: Back pain i/s/o recent T-12 compression fracture Dehydration Constipation Hypertension Hyperlipidemia Osteoporosis Thrombocythemia Depression COPD s/p Pacemaker placement in 2011 for history of tachybradycardia syndrome and paroxysmal SVT COMPLICATIONS/CHIEF COMPLAINT: Thoracic Compression Fracture. HISTORY OF PRESENT ILLNESS: 86-year-old W with a history of hypertension, hyperlipidemia, osteoporosis, th rombocythemia, depression, COPD, pacemaker placement in 2011 for history of tachybradycardia syndrome and paroxysmal SVT, who recently suffered a mechanical fall from a rolling stool on 03/06 and later presented to the ED on 03/08 for new back pain during which she had thoracic and lumbar spine XRs that showed no acute fractures and was discharged home, but returned on 03/09 and had CTs of the thoracic and lumbar spine and was found to have an acute T12 compression fracture with no malalignment, with discogenic degenerative changes throughout the lumbar spine as well and was referred to ortho-spine at [facility] where she was seen 3 times (per Dr. Bates, her PCP) and was eventual ly placed in a brace that she is supposed to be wearing 24h of the day but was unable to even put it on and had excruciating pain at home, was unable to receive much help from her who himself is slowly having some cognitive decline and therefore was unable to mobilize much and care for self with poor PO and uncontrolled pain. In speaking with Dr. Bates, he requested direct admission for pain control, aggressive bowel regimen for ongoing severe constipation, likely hydration as well and rehabilitation efforts. HOSPITAL COURSE: On her arrival from home, she reported 9/10 thoracic back pain but was not in particular distress. She was a great historian and besides the non radiation yvette k pain, she denied any recent fever, chills, chest pain, palpitations, shortness of breath, loss of bowel and bladder control or loss of sensation. On arrival she was hemodynamically stable, afebrile and breathing comfortably on room air. Admission labs were grossly benign with WBC 10.3, Hgb 11.2, platelets 392, na 139, K 4.9, BUN 19, Cr 0.99, lactic acid 1.1, AST 27, ALT 24. She was given IVF for dehydration, miralax and sennakot for constipation with good effect and was evaluated by PT/OT and PM&R and deemed appropriate for ARU admisssion. She is now being discharged to the ARU. DISCHARGE MEDICATIONS: Please see below. ALLERGIES: Please see below. PHYSICAL EXAMINATION ON DISCHARGE: VITAL SIGNS: Please see below. Gen: awake, alert, no acute distress Eyes: Extraocular movements intact, normal sclera ENT: Moist mucous membranes, no lesions, good dentition Cardiovascular: RRR, no murmurs rubs or gallops Lungs: clear to auscultation bilaterally, no rales, rhonchi, or wheeze Abdomen: Soft, NT/ND, normal BS Musculoskeletal: wearing body/torso brace, sitting upright, moving all extremi ties with full strength Extremities: No peripheral edema of bilateral lower extremities Neuro: alert and oriented 3, normal speech, no focal deficits Psych: AOx3 LABORATORY DATA: Please see below. IMAGING: None PROGNOSIS: Good ACTIVITY: As tolerated, per PM&R DIET: 2g sodium DISCHARGE PLAN: ARU DISPOSITION: ARU DISCHARGE INSTRUCTIONS: ARU ITEMS TO FOLLOWUP ON ON OUTPATIENT: T-12 compression fracture DISCHARGE CONDITION: Stable TIME SPENT ON DISCHARGE: 34 minutes. Vital Signs/I&Os Vital Signs Date Time Temp Pulse Resp B/P (MAP) Pulse Ox O2 Delivery O2 Flow Rate FiO2 03/20/21 09:15 18 03/20/21 08:45 Room Air 03/20/21 08:44 160/63 03/20/21 08:44 70 03/20/21 06:00 97.1 94 I&O- Last 24 Hours up to 6 AM 03/20/21 05:59 Intake Total 120 ml Output Total 0 ml Balance 120 ml Laboratory Data Labs 24H Laboratory Tests 2 03/19/21 15:58: Coronavirus (COVID-19)(PCR) NEGATIVE 03/19/21 16:08: Nucleated Red Blood Cells % (auto) 0.0, Anion Gap 8, Glomerular Filtration Rate 56.4, Lactic Acid Level 1.1, Calcium Level 8.9, Total Bilirubin 1.2H, Aspartate Amino Transf (AST/SGOT) 27, Alanine Aminotransferase (ALT/SGPT) 24, Alkaline Phosphatase 96, Total Protein 5.8L, Albumin 3.1L, Albumin/Globulin Ratio 1.1L 03/20/21 05:59: Nucleated Red Blood Cells % (auto) 0.0, Anion Gap 8, Glomerular Filtration Rate 53.8, Calcium Level 8.3L, Magnesium Level 2.5H CBC/BMP Laboratory Tests 03/19/21 16:08 03/20/21 05:59 Discharge Medications Scheduled Aspirin (Aspirin EC) 81 Mg Tabec, 81 MG PO BID, (Reported) Atorvastatin Calcium (Atorvastatin Calcium) 10 Mg Tab, 10 MG PO 5XW, (Reported) TAKES WEDNESDAY THROUGH WEDNESDAY IN THE MORNING Bupropion Hcl (Bupropion Xl) 150 Mg Tab.er.24h, 150 MG PO DAILY, (Reported) Calcium Carbonate/Vitamin D3 (Calcium 500-Vit D3 200 Caplet) 1 Tab Tab, 1 TAB PO BID, (Reported) Carvedilol (Carvedilol) 25 Mg Tablet, 25 MG PO BID, (Reported) Cholecalciferol (Vitamin D3) (Vitamin D3) 1,000 Unit Tablet, 1,000 UNITS PO DAILY, (Reported) Citalopram Hydrobromide (Citalopram HBr) 40 Mg Tablet, 40 MG PO DAILY, (Reported) Cyanocobalamin (Vitamin B-12) (Vitamin B-12) 1,000 Mcg Tab, 1,000 MCG PO DAILY, (Reported) Fluticasone/Vilanterol (Breo Ellipta 200-25 Mcg INH) 1 Each Blst.w.dev, 1 PUFF INH DAILY, (Reported) Hydroxyurea (Hydroxyurea) 500 Mg Capsule, 1,500 MG PO 2XW, (Reported) WED, Hydroxyurea (Hydroxyurea) 500 Mg Capsule, 1,000 MG PO 5XW, (Reported) SUN, , WED, WED, SAT Lisinopril (Lisinopril) 20 Mg Tab, 20 MG PO DAILY, (Reported) Multivitamins (Thera M Plus Tablet) 1 Tab Tab, 1 TAB PO DAILY, (Reported) Polyethylene Glycol 3350 (Miralax) 17 Gm Powd.pack, 1 PKT PO BID Ropinirole HCl (Ropinirole ER) 4 Mg Tab, 4 MG PO QHS, (Reported) Ropinirole HCl (Ropinirole HCl) 2 Mg Tablet, 2 MG PO DAILY, (Reported) TAKES BETWEEN 1400 & 1500 Umeclidinium [place] (Incruse Ellipta) 62.5 Mcg/Inh Inh, 1 PUFF INH DAILY, (Reported) Scheduled PRN Acetaminophen (Acetaminophen) 500 Mg Tablet, 1,000 MG PO Q6H PRN for PAIN, (Rep orted) Albuterol Sulfate (Proair Hfa) 108 Mcg/Act Aer, 2 PUFF INH QID PRN for SHORTNESS OF BREATH, (Reported) Hydrocodone/Acetaminophen (Hydrocodone-Acetamin 7.5-325) 1 Each Tablet, 1 TAB PO Q6H PRN for PAIN, (Reported) Hydrocodone/Acetaminophen (Hydrocodone-Acetamin 5-325 mg) 1 Each Tablet, 2 TAB PO Q8HP PRN for SEVERE PAIN (PS 8-10) Tizanidine HCl (Tizanidine HCl) 4 Mg Tablet, 4 MG PO TID PRN for SPASMS, (Reported) Allergies Coded Allergies: No Known Allergies (Unverified , 01/28/20) SMILEY AGEE MD Mar 20, 2021 12:18
--- NOTE | 2021-03-20 15:29 | IPNPDOC ---
Text Note Date of Service The patient was seen on 03/20/21. NOTE Subjective: -No acute events Objective: Vital signs: see below Gen.: awake, alert, no acute distress Eyes: Extraocular movements intact, normal sclera ENT: Moist mucous membranes, no lesions Cardiovascular: RRR, no murmurs rubs or gallops Lungs: clear to auscultation bilaterally, no rales, rhonchi, or wheeze Abdomen: Soft, NT/ND, normal BS Extremities: No peripheral edema of bilateral lower extremities Neuro: alert and oriented 3, normal speech, no focal deficits Psych: AOx3, normal mood with congruent affect, great historian Labs: Reviewed Assessment: 86-year-old W with a history of hypertension, hyperlipidemia, osteoporosis, thrombocythemia, depression, COPD, pacemaker placement in 2011 for history of tachybradycardia syndrome and paroxysmal SVT, who recently suffered a mechanical fall from a rolling stool on 03/[address] of the thoracic and lumbar spine showed an acute T12 compression fracture with no malalignment, with discogenic degenerative changes throughout the lumbar spine and ortho-spine at [facility] prescribed a torso brace that she is supposed to be wearing 24h of the day but has been unable to even put it on and has been in exc ruciating pain at home and now being admitted for pain control, aggressive bowel regimen for ongoing severe constipation, hydration as well and rehabilitation planning. T-12 compression fracture with associated severe back pain: -To place her brace 24 hours per ortho recommendation, as reported by Dr. Bates her PCP -norco 5/325 - 1 tab Q6HP for moderate pain -norco 5/325 - 2 tabs q8HP for severe pain -acetaminophen 650mg q6HP for mild pain -PT/OT evaluation -ARU screen requested Severe constipation i/s/o narcotic therapy -miralax BID -sennakot BID -100cc/hr NS to 2L -PRN fleet enema for at least 1 BM per day Dehydration: clinically dehydrated on examination with history of poor PO -NS at 100cc/hr to 2L HTN: -continue home coreg 12.5 BID and lisinopril 20 QD Thrombocythemia: -Continue home hydroxyurea and ASA 81 Hyperlipidemia: -Continue home statin Depression: -Continue home citalopram COPD: -continue home mdis Pacemaker placement in 2011 for history of tachybradycardia syndrome and paroxysmal SVT: Chronic Anemia: At recent baseline -continue Vit b12 supplementation DVT ppx: heparin SC Dispo: being discharged to the ARU Alessandro NAVARRO I+O Alessandro NAVARRO I+O Laboratory Tests 03/19/21 16:08 03/20/21 05:59 Vital Signs Date Time Temp Pulse Resp B/P (MAP) Pulse Ox O2 Delivery O2 Flow Rate FiO2 03/20/21 06:00 97.1 71 18 140/72 (94) 94 Room Air I&O- Last 24 Hours up to 6 AM 03/20/21 06:00 Intake Total 120 ml Output Total 0 ml Balance 120 ml SMILEY AGEE MD Mar 20, 2021 07:40
[2021-03-21] MEDS ORDERED: HYDROXYUREA 500 MG CAP PO SCH (09:00)
== END 2021-03-20 15:34 | DRG 552 ==
LOC: M MSPAV 15:27
PROVIDERS: ADMIT General Practice; ATTEND Internal Medicine
DX: S22.080A Wedge compression fracture of T11-T12 vertebra, initial encounter for closed fracture (principal); I10 Essential (primary) hypertension; E78.5 Hyperlipidemia, unspecified; M81.0 Age-related osteoporosis without current pathological fracture; D69.6 Thrombocytopenia, unspecified; F32.9 Major depressive disorder, single episode, unspecified; M54.6 Pain in thoracic spine; J44.9 Chronic obstructive pulmonary disease, unspecified; Z95.0 Presence of cardiac pacemaker; K59.00 Constipation, unspecified; Z85.828 Personal history of other malignant neoplasm of skin; Z96.642 Presence of left artificial hip joint; Z96.652 Presence of left artificial knee joint; Z98.1 Arthrodesis status; Z90.79 Acquired absence of other genital organ(s); Z87.891 Personal history of nicotine dependence; Z91.19 Patient's noncompliance with other medical treatment and regimen; E86.0 Dehydration; D64.9 Anemia, unspecified; Z79.899 Other long term (current) drug therapy; Z20.822 Contact with and (suspected) exposure to COVID-19; W07.XXXA Fall from chair, initial encounter; Y92.9 Unspecified place or not applicable

== ENCOUNTER 2021-03-20 12:49 | Inpatient (IN) | payer MEDICARE, OTHER ==
[~2021-03-20] VITALS: Ht 165.1 cm; Wt 62.3 kg
[~2021-03-20 12:49] MED LIST changes: +BUPR150T12 PO; +CARV25TA PO; +D31000TA2 PO; +HYDR-3715 PO; +HYDR-3716 PO; +MIRA1POW3 PO; +ROPI2TAB3 PO; +TIZA4TAB4 PO
[2021-03-20 15:35] VITALS: BP 138/65
[2021-03-20] MEDS ORDERED: tiZANidine 4 MG TAB PO PRN (15:55)
[2021-03-20] MEDS ORDERED: MIRALAX *UNIT DOSE* 17GM PACKET PO PRN (15:55)
[2021-03-20] MEDS ORDERED: BISACODYL 10 MG SUPP PR PRN (15:55)
[2021-03-20] MEDS ORDERED: PILL CUTTER 1 EACH XX PRN (16:40)
[2021-03-20] MEDS: ACETAMINOPHEN 500 MG TAB PO SCH ×2 (17:14→20:47)
[2021-03-20 20:00] VITALS: BP 114/55
[2021-03-20] MEDS: ADVAIR HFA 230/21MCG INHALER INH SCH (20:02)
[2021-03-20] MEDS: DOCUSATE SODIUM 100MG CAPSULE PO SCH (20:46)
[2021-03-20] MEDS: ASPIRIN 81MG ENTERIC TABLET PO SCH (20:46)
[2021-03-20] MEDS: SENNA 8.6 MG TAB (SENOKOT) PO SCH (20:46)
[2021-03-20] MEDS: rOPINIRole 2MG TAB PO SCH (20:47)
[2021-03-20] MEDS: HEPARIN SOD (PORCINE) 5000UNITS/ML 1ML VIAL/SYRINGE SC SCH (20:47)
[2021-03-20] MEDS: CALCIUM/VITAMIN D 500 MG TAB PO SCH (20:47)
[2021-03-20] MEDS: oxyCODONE 5MG TAB PO PRN (20:48)
[2021-03-20] MEDS: CARVedilol 12.5 MG TAB PO SCH (20:49)
[2021-03-21] VITALS (7 sets, daily range): BP systolic 88–192; BP diastolic 38–88
[2021-03-21] MEDS: CARVedilol 12.5 MG TAB PO SCH ×2 (07:03→20:41)
[2021-03-21] MEDS: TIOTROPIUM INHALER/CAPSULE (SPIRIVA) INH SCH (07:16)
[2021-03-21] MEDS: ADVAIR HFA 230/21MCG INHALER INH SCH ×2 (07:18→19:50)
[2021-03-21] MEDS: MULTIVITAMINS/MINERALS THERAP 1 TAB PO SCH (07:41)
[2021-03-21] MEDS: CALCIUM/VITAMIN D 500 MG TAB PO SCH ×2 (07:41→20:38)
[2021-03-21] MEDS: HEPARIN SOD (PORCINE) 5000UNITS/ML 1ML VIAL/SYRINGE SC SCH ×2 (07:41→20:42)
[2021-03-21] MEDS: DOCUSATE SODIUM 100MG CAPSULE PO SCH ×2 (07:41→20:38)
[2021-03-21] MEDS: CitaloPRAM (CeleXA) 20 MG TAB PO SCH (07:42)
[2021-03-21] MEDS: PANTOPRAZOLE 40MG TAB (PROTONIX) PO SCH (07:42)
[2021-03-21] MEDS: ACETAMINOPHEN 500 MG TAB PO SCH ×3 (07:42→20:42)
[2021-03-21] MEDS: buPROPion **XL** TABLET 150MG (WELLBUTRIN XL) PO SCH (07:42)
[2021-03-21] MEDS: ATORVASTATIN 10 MG TAB PO SCH (07:42)
[2021-03-21] MEDS: ASPIRIN 81MG ENTERIC TABLET PO SCH (07:42)
[2021-03-21] MEDS: CYANOCOBALAMIN 500 MCG TAB PO SCH (07:42)
[2021-03-21] MEDS: HYDROXYUREA 500 MG CAP PO SCH (07:43)
[2021-03-21] MEDS: VITAMIN D 1,000 INTERNATIONAL UNITS TABLET PO SCH (07:45)
[2021-03-21 08:05] LABS: BASO % 0.4 % (0.0-1.0); EOS # 0.1 10^3/uL (0.0-0.5); EOS % 1.1 % (0.0-3.0); HEMATOCRIT 34.3 % (36.0-47.0); HEMOGLOBIN 11.2 g/dl (12.0-15.5); LYMPH # 0.6 10^3/uL (1.5-5.0); LYMPH % 7.7 % (24.0-44.0); MEAN CORPUSCULAR HEMOGLOBIN 39.2 pg (27.0-33.0); MEAN CORPUSCULAR HGB CONC 32.7 g/dl (32.0-36.5); MONO # 0.6 10^3/uL (0.0-0.8); MONO % 7.3 % (2.0-8.0); NEUTROPHILS # 6.8 10^3/uL (1.5-8.5); NEUTROPHILS % 81.8 % (36.0-66.0); PLATELET COUNT, AUTOMATED 431 10^3/uL (150-450); RED BLOOD COUNT 2.86 10^6/uL (4.00-5.40); WHITE BLOOD COUNT 8.3 10^3/uL (4.0-10.0)
[2021-03-21 08:09] LABS: MEAN CORPUSCULAR VOLUME 119.9 fl (80.0-96.0)
[2021-03-21 08:38] LABS: BILIRUBIN,TOTAL 0.6 MG/DL (0.2-1.0); CREATININE FOR GFR 1.04 MG/DL (0.55-1.30); GLOMERULAR FILTRATION RATE 53.2 (>32); POTASSIUM SERUM 4.6 MEQ/L (3.5-5.1); TOTAL PROTEIN 5.5 GM/DL (6.4-8.2)
[2021-03-21] MEDS: oxyCODONE 5MG TAB PO PRN ×2 (10:24→20:51)
[2021-03-21] MEDS ORDERED: **hydrALAZINE** 50 MG TAB PO ONE (10:30)
[2021-03-21] MEDS: MIRALAX *UNIT DOSE* 17GM PACKET PO SCH (12:35)
[2021-03-21] MEDS: rOPINIRole 2MG TAB PO SCH ×2 (13:12→20:38)
--- NOTE | 2021-03-21 13:30 | HPEPDOC ---
Botany Teacher Note DATE OF ADMISSION: 03-20-21 DATE OF SERVICE: 03-21-21 TIME OF ADMISSION: Please refer to physician's admission order. SOURCE OF ADMISSION INFORMATION: [facility] record and patient CHIEF COMPLAINT: T12 compression fracture HISTORY OF PRESENT ILLNESS: 86F pmh HTN, HLD, thrombocytopenia, COPD, pacemaker for tachybrady syndrome, paroxysmal SVTs, chronic constipation, osteoporosis, who fell at home 03-06-21 and was ultimately diagnosed with a T12 compression fracture and was evaluated by WESLEY Eng at [facility] who prescribed a TLSO brace. Patient however was unable to mange the brace at home, had difficulty with pain, poor po intake with dehydration, and constipation and was admitted for intractable back pain. She was noted to have leukocytosis with anemia in addition to hyponatremia. She received IVF for dehydration, oral pain medications, was evaluated by therapy, found to have significant mobility and ADL impairments and deemed medically appropriate for discharge to ARU on 03-20-21 REVIEW OF SYSTEMS: The following is a completed review of systems and has been reviewed. Review of systems otherwise unremarkable. PAIN: Patient self reports non-radiating low back pain with movement EYES: No recent vision changes EARS, NOSE, & THROAT: No throat pain, or dysphagia, or rhinorrhea, + dry mouth (chronic) CARDIOVASCULAR: Denies chest pain or palpitations PULMONARY: Denies shortness of breath GASTROINTESTINAL: +constipation GENITOURINARY: denies dysuria MUSCULOSKELETAL: generalized weakness, T12 compression fracture NEUROLOGICAL: denies paresthesias, + restless leg HEMATOLOGICAL: denies easy bruising SKIN: denies rash PSYCHIATRIC: Unremarkable All other review of systems found to be negative. 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 MEDICATIONS: Please see below. FAMILY HISTORY: CVA SOCIAL HISTORY: Former smoker, no etoh/illicit drugs DIET: low sodium, fluid restrict PHYSICAL EXAMINATION: VITAL SIGNS: Please see below. GENERAL: Pleasant and cooperative. No acute distress. HEENT: PERRL. Extraocular movements intact. Clear conjunctiva, dry mucosa CARDIOVASCULAR: Regular rate and rhythm. No murmurs, rubs, or gallops LUNGS: Clear to auscultation bilaterally. No wheezes. No rhonchi ABDOMEN: Soft, nontender, nondistended. Positive bowel sounds. Normal active bowel sounds NEUROLOGICAL: Alert and oriented times three. Cranial nerves II through XII grossly intact. Sensation grossly intact +tangential EXTREMITIES: 4\5 strength bilateral upper extremities, (except unable to raise bilat arms above 90 degrees) 4\5 strength right lower extremity. 4/5 strength in left lower extremity. +TTP upper lumbar/lower thoracic region LABORATORY DATA: Please see below. IMAGING:[Imaging documentation personally reviewed by record]. FUNCTIONAL STATUS: Premorbid: Independent with all activities of daily life as well as mobility On Admission: Contact guard for ambulation, functional transfers, toileting, max assist for dressing GOALS: Mod-I for dressing, toileting, bathing, functional transfers, ambulation, bed mobility ASSESSMENT:86-year-old F with past medical history of HTN who presents status post fall with T12 compression fracture with intractable low back pain and difficulty ambulating PLAN: 1. REhab- PT/OT advance mobilty and ADLs, TLSO when out of bed (discussed with Becka's nurse, ok to remove when in bed to avoid skin breakdown and limit anxiety with resulting elevated BPs) 2. Neuro- per Dr. Bates's nurse who reviewed her charts, she is on ASA 161mg daily for transient ocular migraines stared in 2017, will switch BID dosing of 81mg to 162 mg daily 3. Ortho- s/p fall with T12 compression fracture, will start intranasal calcitonin for acute bone pain, c/u standing Tylenol 1gm TID, and oxycodone prn, tizanidine ordered prn as well 4. Cardiac- hx of HTN, with elevated BPs possibly due to pain/anxiety from fracture/brace, will add hydralazine with holding parameters, c/u home BP meds -per last ECHO patient with grade 1 diastolic CHF, will monitor for fluid overload to see if diuretic is warranted, in the meantime daily weights and fluid restrict -HLD- cu statin 5. Resp- hx of COPD not on 02, monitor for infection, c/u spiriva and advair 6. Heme- hx of thrombocytopenia on hydroxyurea, platelets currently WNL 7. Pain- please see ortho 8. DVT ppx- heparin and TEDs 9. Psych- celexa 10. Dispo- TBD POST ADMISSION PHYSICIAN EVALUATION: Medical and functional status: Description of medical status, medical assessment: As above. Rehabilitation diagnosis and current and prior cold morbid medical conditions as above. Risk of complications and plans to mitigate them as above. Description of functional status current status is as above. Prior status as above. Status compared to preadmission: There are no clinically significant differences between the patient's current status and the information described on the preadmission screening document. Treatment plan anticipated: Treatment plan is as described above. Required disciplines including physical therapy, occupational therapy, others as noted above Intensity of services: 3 hours a day, 6 days a week. Special considerations: There are no specific special or safety considerations that would likely preclude immediate implementation of an intensive rehabilitation program or subsequently influence the plan of care. ATTESTATION: Considering all the information above, it is my best judgment that this patient requires intensive rehabilitation therapy as described above and an inpatient hospital environment due to the complexity of nursing, medical, and rehabilitation needs required by the patient. Furthermore, this patient can reasonably be expected to participate in an benefit from an inpatient rehabilitation stay with an interdisciplinary team approach to the delivery of rehabilitation care under the direction and supervision of rehabilitation physician. PROGNOSIS: good ESTIMATED LENGTH OF STAY:12-14 days. PROJECTED DISCHARGE DESTINATION: Home with family support and any durable medical equipment required to increase functional safety and mobility. TIME SPENT COUNSELING AND COORDINATING INITIAL CARE: Greater than 70 minutes. Vital Signs Vital Sign - Last 24 Hours 03/20/21 03/20/21 03/20/21 03/20/21 15:35 20:00 20:48 20:49 Temp 99.1 98.2 Pulse 63 63 63 Resp 16 18 18 B/P (MAP) 138/65 (89) 114/55 (74) 114/55 Pulse Ox 95 91 O2 Delivery Room Air Room Air Room Air 03/20/21 03/21/21 03/21/21 03/21/21 21:37 06:00 07:03 09:23 Temp 96.9 Pulse 70 70 Resp 18 18 B/P (MAP) 182/88 (119) 182/88 192/78 (116) Pulse Ox 93 O2 Delivery Room Air Room Air 03/21/21 03/21/21 03/21/21 03/21/21 10:23 10:24 10:54 11:00 Resp 16 18 B/P (MAP) 192/78 88/38 (55) 03/21/21 11:59 Pulse 59 B/P (MAP) 114/57 (76) Laboratory Data CBC/BMP Laboratory Tests 03/21/21 07:33 Labs 24H Laboratory Tests 2 03/21/21 07:33: Immature Granulocyte % (Auto) 1.7, Neutrophils (%) (Auto) 81.8H, Lymphocytes (%) (Auto) 7.7L, Monocytes (%) (Auto) 7.3, Eosinophils (%) (Auto) 1.1, Basophils (%) (Auto) 0.4, Neutrophils # (Auto) 6.8, Lymphocytes # (Auto) 0.6L, Monocytes # (Auto) 0.6, Eosinophils # (Auto) 0.1, Basophils # (Auto) 0.0, Nucleated Red Blood Cells % (auto) 0.0, Anion Gap 5L, Glomerular Filtration Rate 53.2, Calcium Level 9.0, Total Bilirubin 0.6, Aspartate Amino Transf (AST/SGOT) 28, Alanine Aminotransferase (ALT/SGPT) 24, Alkaline Phosphatase 106, Total Protein 5.5L, Albumin 3.0L, Albumin/Globulin Ratio 1.2 Home Medications Scheduled Aspirin (Aspirin EC) 81 Mg Tabec, 81 MG PO BID, (Reported) Atorvastatin Calcium (Atorvastatin Calcium) 10 Mg Tab, 10 MG PO 5XW, (Reported) TAKES WEDNESDAY THROUGH WEDNESDAY IN THE MORNING Bupropion Hcl (Bupropion Xl) 150 Mg Tab.er.24h, 150 MG PO DAILY, (Reported) Calcium Carbonate/Vitamin D3 (Calcium 500-Vit D3 200 Caplet) 1 Tab Tab, 1 TAB PO BID, (Reported) Carvedilol (Carvedilol) 25 Mg Tablet, 25 MG PO BID, (Reported) Cholecalciferol (Vitamin D3) (Vitamin D3) 1,000 Unit Tablet, 1,000 UNITS PO DAILY, (Reported) Citalopram Hydrobromide (Citalopram HBr) 40 Mg Tablet, 40 MG PO DAILY, (Reported) Cyanocobalamin (Vitamin B-12) (Vitamin B-12) 1,000 Mcg Tab, 1,000 MCG PO DAILY, (Reported) Fluticasone/Vilanterol (Breo Ellipta 200-25 Mcg INH) 1 Each Blst.w.dev, 1 PUFF INH DAILY, (Reported) Hydroxyurea (Hydroxyurea) 500 Mg Capsule, 1,500 MG PO 2XW, (Reported) MON, THURS Hydroxyurea (Hydroxyurea) 500 Mg Capsule, 1,000 MG PO 5XW, (Reported) SUN, TUES, WED, FRI, SAT Lisinopril (Lisinopril) 20 Mg Tab, 20 MG PO DAILY, (Reported) Multivitamins (Thera M Plus Tablet) 1 Tab Tab, 1 TAB PO DAILY, (Reported) Polyethylene Glycol 3350 (Miralax) 17 Gm Powd.pack, 1 PKT PO BID Ropinirole HCl (Ropinirole ER) 4 Mg Tab, 4 MG PO QHS, (Reported) Ropinirole HCl (Ropinirole HCl) 2 Mg Tablet, 2 MG PO DAILY, (Reported) TAKES BETWEEN 1400 & 1500 Umeclidinium [place] (Incruse Ellipta) 62.5 Mcg/Inh Inh, 1 PUFF INH DAILY, (Reported) Scheduled PRN Acetaminophen (Acetaminophen) 500 Mg Tablet, 1,000 MG PO Q6H PRN for PAIN, (Reported) Albuterol Sulfate (Proair Hfa) 108 Mcg/Act Aer, 2 PUFF INH QID PRN for SHORTNESS OF BREATH, (Reported) Hydrocodone/Acetaminophen (Hydrocodone-Acetamin 7.5-325) 1 Each Tablet, 1 TAB PO Q6H PRN for PAIN, (Reported) Hydrocodone/Acetaminophen (Hydrocodone-Acetamin 5-325 mg) 1 Each Tablet, 2 TAB PO Q8HP PRN for SEVERE PAIN (PS 8-10) Tizanidine HCl (Tizanidine HCl) 4 Mg Tablet, 4 MG PO TID PRN for SPASMS, (Reported) Allergies Coded Allergies: No Known Allergies (Unverified , 01/28/20) A-FIB/CHADSVASC A-FIB History Current/History of A-Fib/PAF?: No Current PO Anticoag Therapy: No ANGELA ROGERS MD Mar 21, 2021 13:30
[2021-03-21] MEDS ORDERED: ASPIRIN 81MG ENTERIC TABLET PO ONE (14:00)
[2021-03-21] MEDS: CALCITONIN NASAL SPRAY 3.7 ML BTL SCH (15:17)
[2021-03-21] MEDS: **hydrALAZINE HCL** 25 MG TAB PO SCH (17:24)
[2021-03-21] MEDS: SALIVA SUBSTITUTE(MOUTHKOTE) BTL MT SCH ×2 (17:24→20:43)
[2021-03-21] MEDS: SENNA 8.6 MG TAB (SENOKOT) PO SCH (20:42)
[2021-03-22] MEDS: **hydrALAZINE HCL** 25 MG TAB PO SCH ×3 (00:38→09:40)
[2021-03-22 06:10] VITALS: BP 190/85
[2021-03-22 06:30] VITALS: BP 180/80
[2021-03-22 06:58] VITALS: BP 180/80
[2021-03-22] MEDS: CARVedilol 12.5 MG TAB PO SCH ×2 (07:12→20:59)
[2021-03-22] MEDS: TIOTROPIUM INHALER/CAPSULE (SPIRIVA) INH SCH (07:22)
[2021-03-22] MEDS: ADVAIR HFA 230/21MCG INHALER INH SCH ×2 (07:23→20:38)
[2021-03-22] MEDS: SALIVA SUBSTITUTE(MOUTHKOTE) BTL MT SCH ×4 (09:00→21:01)
[2021-03-22] MEDS: buPROPion **XL** TABLET 150MG (WELLBUTRIN XL) PO SCH (09:03)
[2021-03-22] MEDS: HEPARIN SOD (PORCINE) 5000UNITS/ML 1ML VIAL/SYRINGE SC SCH ×2 (09:04→20:57)
[2021-03-22] MEDS: HYDROXYUREA 500 MG CAP PO SCH (09:04)
[2021-03-22] MEDS: VITAMIN D 1,000 INTERNATIONAL UNITS TABLET PO SCH (09:04)
[2021-03-22] MEDS: PANTOPRAZOLE 40MG TAB (PROTONIX) PO SCH (09:04)
[2021-03-22] MEDS: CitaloPRAM (CeleXA) 20 MG TAB PO SCH (09:04)
[2021-03-22] MEDS: MULTIVITAMINS/MINERALS THERAP 1 TAB PO SCH (09:04)
[2021-03-22] MEDS: ASPIRIN 81MG ENTERIC TABLET PO SCH (09:04)
[2021-03-22] MEDS: CYANOCOBALAMIN 500 MCG TAB PO SCH (09:05)
[2021-03-22] MEDS: ACETAMINOPHEN 500 MG TAB PO SCH ×3 (09:05→20:58)
[2021-03-22] MEDS: CALCIUM/VITAMIN D 500 MG TAB PO SCH ×2 (09:05→21:00)
[2021-03-22] MEDS: DOCUSATE SODIUM 100MG CAPSULE PO SCH ×2 (09:05→21:00)
[2021-03-22] MEDS: MIRALAX *UNIT DOSE* 17GM PACKET PO SCH (09:07)
[2021-03-22] MEDS: CALCITONIN NASAL SPRAY 3.7 ML BTL SCH (09:08)
[2021-03-22] MEDS ORDERED: ONDANSETRON 4 MG ORAL DISINTEGRATING TAB PO ONE (10:10)
[2021-03-22 14:00] VITALS: BP 165/67
[2021-03-22] MEDS: rOPINIRole 2MG TAB PO SCH ×2 (14:52→20:58)
--- NOTE | 2021-03-22 16:45 | IPNPDOC ---
Text Note Date of Service The patient was seen on 03/22/21. NOTE Subjective: -No acute events, has significant back pain but has been participating in all rehab activities Objective: Vital signs: see below Gen.: awake, alert, no acute distress Eyes: Extraocular movements intact, normal sclera ENT: Moist mucous membranes, no lesions Cardiovascular: RRR, no murmurs rubs or gallops Lungs: clear to auscultation bilaterally, no rales, rhonchi, or wheeze Abdomen: Soft, NT/ND, normal BS Extremities: No peripheral edema of bilateral lower extremities Neuro: alert and oriented 3, normal speech, no focal deficits Psych: AOx3, normal mood with congruent affect, great historian Labs: Reviewed Assessment: 86-year-old W with a history of hypertension, hyperlipidemia, osteoporosis, thrombocythemia, depression, COPD, pacemaker placement in 2011 for history of tachybradycardia syndrome and paroxysmal SVT, who recently suffered a mechanical fall from a rolling stool on 03/[address] of the thoracic and lumbar spine showed an acute T12 compression fracture with no malalignment, with discogenic degenerative changes throughout the lumbar spine and ortho-spine at [facility] prescribed a torso brace that she is supposed to be wearing 24h of the day but has been unable to even put it on and has been in excruciating pain at home and now being admitted for pain control, aggressive bowel regimen for ongoing severe constipation, hydration as well and rehabilitation planning. HTN: has been hypertensive, likely a combination of essential HTN and pain driven as well -Has now been uptitrated to lisinopril 40 QD, had only received 20mg this AM per old dosing, will give 20mg now. -DC plan for amlodipine 10 QHS and hydral 50Q6H -Has been uptitrated to 25 BID coreg, will continue -Plan will be to increase stepwise and avoid adding multiple agents that have frequent dosing at once to avoid polypharmacy and risk for hypotension. Will follow closely to optimize meds. T-12 compression fracture with associated severe back pain: -Wearing brace per PM&R recommendation when upright, off when supine -oxy 5Q4HP for severe pain -was started on intranasal calcitonin for bone pain by PM&R -acetaminophen 650mg q4HP for mild pain -PT/OT per PM&R Constipation i/s/o narcotic therapy -miralax BID -sennakot BID Thrombocythemia: -Continue home hydroxyurea and ASA 81 Hyperlipidemia: -Continue home statin Depression: -Continue home citalopram COPD: -continue home raymond Pacemaker placement in 2011 for history of tachybradycardia syndrome and paroxysmal SVT: Chronic Anemia: At recent baseline -continue Vit b12 supplementation DVT ppx: heparin SC Dispo: per ARU VS,Fishbone, I+O VS, Fishbone, I+O Vital Signs Date Time Temp Pulse Resp B/P (MAP) Pulse Ox O2 Delivery O2 Flow Rate FiO2 03/22/21 14:00 97.7 82 18 165/67 (99) 95 Room Air I&O- Last 24 Hours up to 6 AM 03/22/21 06:00 Intake Total 540 ml Balance 540 ml SMILEY AGEE MD Mar 22, 2021 16:44
[2021-03-22 17:15] VITALS: BP 178/82
[2021-03-22] MEDS ORDERED: **hydrALAZINE** 50 MG TAB PO SCH (18:00)
[2021-03-22 20:00] VITALS: BP 174/78
[2021-03-22] MEDS: SENNA 8.6 MG TAB (SENOKOT) PO SCH (21:00)
[2021-03-23] VITALS (10 sets, daily range): BP systolic 118–188; BP diastolic 60–90
[2021-03-23] MEDS: oxyCODONE 5MG TAB PO PRN ×2 (00:26→11:29)
[2021-03-23] MEDS: TIOTROPIUM INHALER/CAPSULE (SPIRIVA) INH SCH (07:21)
[2021-03-23] MEDS: ADVAIR HFA 230/21MCG INHALER INH SCH ×2 (07:21→19:31)
[2021-03-23] MEDS: HEPARIN SOD (PORCINE) 5000UNITS/ML 1ML VIAL/SYRINGE SC SCH ×2 (07:53→21:34)
[2021-03-23] MEDS: MIRALAX *UNIT DOSE* 17GM PACKET PO SCH (07:53)
[2021-03-23] MEDS: CALCITONIN NASAL SPRAY 3.7 ML BTL SCH (07:53)
[2021-03-23] MEDS: buPROPion **XL** TABLET 150MG (WELLBUTRIN XL) PO SCH (07:54)
[2021-03-23] MEDS: CARVedilol 12.5 MG TAB PO SCH ×2 (07:54→21:35)
[2021-03-23] MEDS: lisinopriL 40 MG TAB PO SCH (07:54)
[2021-03-23] MEDS: CitaloPRAM (CeleXA) 20 MG TAB PO SCH (07:54)
[2021-03-23] MEDS: DOCUSATE SODIUM 100MG CAPSULE PO SCH ×2 (07:54→21:00)
[2021-03-23] MEDS: HYDROXYUREA 500 MG CAP PO SCH (07:55)
[2021-03-23] MEDS: CALCIUM/VITAMIN D 500 MG TAB PO SCH ×2 (07:57→21:00)
[2021-03-23] MEDS: ASPIRIN 81MG ENTERIC TABLET PO SCH (07:57)
[2021-03-23] MEDS: SALIVA SUBSTITUTE(MOUTHKOTE) BTL MT SCH ×4 (07:57→21:34)
[2021-03-23] MEDS: PANTOPRAZOLE 40MG TAB (PROTONIX) PO SCH (07:58)
[2021-03-23] MEDS: ACETAMINOPHEN 500 MG TAB PO SCH ×3 (07:58→21:00)
[2021-03-23] MEDS: MULTIVITAMINS/MINERALS THERAP 1 TAB PO SCH (07:58)
[2021-03-23] MEDS: CYANOCOBALAMIN 500 MCG TAB PO SCH (07:59)
[2021-03-23] MEDS: VITAMIN D 1,000 INTERNATIONAL UNITS TABLET PO SCH (07:59)
[2021-03-23] MEDS: rOPINIRole 2MG TAB PO SCH ×2 (13:33→21:34)
[2021-03-23] MEDS: SENNA 8.6 MG TAB (SENOKOT) PO SCH (21:00)
[2021-03-24] MEDS: oxyCODONE 5MG TAB PO PRN (05:03)
[2021-03-24 06:48] VITALS: BP 140/70
[2021-03-24] MEDS: TIOTROPIUM INHALER/CAPSULE (SPIRIVA) INH SCH (07:10)
[2021-03-24] MEDS: ADVAIR HFA 230/21MCG INHALER INH SCH ×2 (07:10→19:49)
[2021-03-24] MEDS: ASPIRIN 81MG ENTERIC TABLET PO SCH (08:25)
[2021-03-24] MEDS: ATORVASTATIN 10 MG TAB PO SCH (08:25)
[2021-03-24] MEDS: PANTOPRAZOLE 40MG TAB (PROTONIX) PO SCH (08:26)
[2021-03-24] MEDS: CYANOCOBALAMIN 500 MCG TAB PO SCH (08:26)
[2021-03-24] MEDS: DOCUSATE SODIUM 100MG CAPSULE PO SCH ×2 (08:26→20:56)
[2021-03-24] MEDS: lisinopriL 40 MG TAB PO SCH (08:26)
[2021-03-24] MEDS: CARVedilol 12.5 MG TAB PO SCH ×2 (08:26→20:57)
[2021-03-24] MEDS: CitaloPRAM (CeleXA) 20 MG TAB PO SCH (08:26)
[2021-03-24] MEDS: ACETAMINOPHEN 500 MG TAB PO SCH ×3 (08:26→20:56)
[2021-03-24] MEDS: HYDROXYUREA 500 MG CAP PO SCH (08:27)
[2021-03-24] MEDS: SALIVA SUBSTITUTE(MOUTHKOTE) BTL MT SCH ×4 (08:27→20:58)
[2021-03-24] MEDS: HEPARIN SOD (PORCINE) 5000UNITS/ML 1ML VIAL/SYRINGE SC SCH ×2 (08:28→20:58)
[2021-03-24] MEDS: buPROPion **XL** TABLET 150MG (WELLBUTRIN XL) PO SCH (08:28)
[2021-03-24] MEDS: MIRALAX *UNIT DOSE* 17GM PACKET PO SCH (08:28)
[2021-03-24] MEDS: MULTIVITAMINS/MINERALS THERAP 1 TAB PO SCH (08:32)
[2021-03-24] MEDS: CALCIUM/VITAMIN D 500 MG TAB PO SCH ×2 (08:32→20:56)
[2021-03-24] MEDS: VITAMIN D 1,000 INTERNATIONAL UNITS TABLET PO SCH (08:33)
[2021-03-24] MEDS: CALCITONIN NASAL SPRAY 3.7 ML BTL SCH (08:34)
[2021-03-24 09:00] VITALS: BP 202/90
[2021-03-24] MEDS ORDERED: **hydrALAZINE HCL** 25 MG TAB PO ONE (09:15)
[2021-03-24 10:30] VITALS: BP 104/50
--- NOTE | 2021-03-24 10:50 | IPNPDOC ---
PM&R Progress Note DATE OF SERVICE: Mar 24, 2021 Special Needs Nanny Progress Note Subjective: Patient reporting armando is feeling ok today and believes she will be able to direct her on how to help her with the brace. She is wondering about her left anterior sosa where she had a Moh's procedure at the end of February. She states she had 2 episodes in the later afternoon where she thought she saw someone in her room that wasn't there. REVIEW OF SYSTEMS: The following is a completed review of systems and has been reviewed. Review of systems otherwise unremarkable. PAIN: Patient self reports non-radiating low back pain with movement EYES: No recent vision changes EARS, NOSE, & THROAT: No throat pain, or dysphagia, or rhinorrhea, + dry mouth (chronic) CARDIOVASCULAR: Denies chest pain or palpitations PULMONARY: Denies shortness of breath GASTROINTESTINAL: +constipation (resolved) GENITOURINARY: denies dysuria MUSCULOSKELETAL: generalized weakness, T12 compression fracture NEUROLOGICAL: denies paresthesias, + restless leg HEMATOLOGICAL: denies easy bruising SKIN: denies rash PSYCHIATRIC: Unremarkable All other review of systems found to be negative. PHYSICAL EXAMINATION: VITAL SIGNS: Please see below. GENERAL: Pleasant and cooperative. No acute distress. HEENT: PERRL. Extraocular movements intact. Clear conjunctiva, dry mucosa CARDIOVASCULAR: Regular rate and rhythm. No murmurs, rubs, or gallops LUNGS: Clear to auscultation bilaterally. No wheezes. No rhonchi ABDOMEN: Soft, nontender, nondistended. Positive bowel sounds. Normal active bowel sounds NEUROLOGICAL: Alert and oriented times three. Cranial nerves II through XII grossly intact. 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 4/5 strength in left lower extremity. Left anterior sosa with macerated and exudative incision site ASSESSMENT:86-year-old F with past medical history of HTN who presents status post fall with T12 compression fracture with intractable low back pain and difficulty ambulating PLAN: 1. Rehab- PT/OT advance mobilty and ADLs, TLSO when out of bed (discussed with Becka's nurse, ok to remove when in bed to avoid skin breakdown and limit anxiety with resulting elevated BPs) 3. Ortho- s/p fall with T12 compression fracture, will start intranasal calcitonin for acute bone pain, c/u standing Tylenol 1gm TID, and oxycodone prn, tizanidine ordered prn as well 4. Cardiac- hx of HTN, with elevated BPs possibly due to pain/anxiety from fracture/brace, BPs started to improve, however sBP 202 today while in therapy , patient asymptomatic, hydralazine given, will add HCTZ to daily regimen, c/u increased dose of lisinopirl 40mg daily and Coreg -per last ECHO patient with grade 1 diastolic CHF, will monitor for fluid overload to see if diuretic is warranted, in the meantime daily weights and fluid restrict -HLD- cu statin 5. Resp- hx of COPD not on 02, monitor for infection, c/u spiriva and advair 6. Heme- hx of thrombocytosis on hydroxyurea and ASA 162mg daily (PMD's office called back today to clarify ASA dosing and reason for its use)- platelets currently WNL 7. Pain- please see ortho 8. DVT ppx- heparin and TEDs 9. Psych- celexa 10. Derm- patient underwent Mohs procedure end of February with poor healing incision site, cleaned and redressed wound will reassess tomorrow to modiify dressing changes 11. Dispo- TBD Allergies Coded Allergies: No Known Allergies (Unverified , 01/28/20) Vital Signs Vital Signs Date Time Temp Pulse Resp B/P (MAP) Pulse Ox O2 Delivery O2 Flow Rate FiO2 03/24/21 09:25 202/90 03/24/21 08:26 68 03/24/21 06:48 97.1 18 95 Room Air Current Medications Current Medications Current Medications Medications (Trade) Dose Ordered Sig/Sanya Route PRN Reason Start Time Stop Time Status Last Admin Dose Admin Acetaminophen (Tylenol Tab) 1,000 mg TID PO 03/20/21 16:00 03/24/21 08:26 Amlodipine Besylate (Norvasc) 10 mg DAILY PO 03/24/21 09:00 03/24/21 08:27 Amlodipine Besylate (Norvasc) 10 mg QHS PO 03/22/21 21:00 03/22/21 16:39 DC Aspirin (Ecotrin) 81 mg BID PO 03/20/21 21:00 03/21/21 13:19 DC 03/21/21 07:42 Aspirin (Ecotrin) 162 mg QAM PO 03/22/21 09:00 03/24/21 08:25 Atorvastatin Calcium (Lipitor) 10 mg MoTuWeThFr@0900 PO 03/21/21 09:00 03/24/21 08:25 Bisacodyl (Dulcolax Suppository) 10 mg DAILYPRN PRN [place] CONSTIPATION 03/20/21 15:55 Bupropion HCl (Wellbutrin Xl) 150 mg DAILY PO 03/21/21 09:00 03/24/21 08:28 Calcitonin [place] (Miacalcin (Fortical)) 1 sprays DAILY NA 03/21/21 09:00 03/27/21 09:01 03/24/21 08:34 Calcium/Vitamin D (Oscal D) 500 mg BID PO 03/20/21 21:00 03/22/21 09:05 Carvedilol (COReg) 25 mg BID PO 03/20/21 21:00 03/24/21 08:26 Citalopram Hydrobromide (CeleXA) 40 mg DAILY PO 03/21/21 09:00 03/24/21 08:26 Cyanocobalamin (Vitamin B12) 1,000 mcg DAILY PO 03/21/21 09:00 03/24/21 08:26 Docusate Sodium (Colace) 100 mg BID PO 03/20/21 21:00 03/24/21 08:26 Heparin Sodium (Porcine) (Heparin) 5,000 units Q12H SC 03/20/21 21:00 03/24/21 08:28 Hydralazine HCl (Apresoline) 25 mg Q6H PO 03/21/21 18:00 03/22/21 10:22 DC 03/22/21 09:40 Hydralazine HCl (Apresoline) 50 mg Q6H PO 03/22/21 18:00 03/22/21 16:39 DC Hydrochlorothiazide (Hydrodiuril) 12.5 mg DAILY PO 03/25/21 12:00 Hydroxyurea (Hydrea) 1,000 mg SuTuWeFrSa@0900 PO 03/21/21 09:00 03/23/21 07:55 Hydroxyurea (Hydrea) 1,500 mg MoTh@0900 PO 03/24/21 09:00 03/24/21 08:27 Lisinopril (Prinivil) 20 mg DAILY PO 03/21/21 09:00 03/22/21 09:29 DC 03/22/21 07:12 Lisinopril (Prinivil) 40 mg DAILY PO 03/23/21 09:00 03/24/21 08:26 Multivitamins (Theragram-M) 1 tab DAILY PO 03/21/21 09:00 03/22/21 09:04 Oxycodone HCl (Roxicodone, Oxyir) 5 mg Q4HP PRN PO PAIN 03/20/21 15:55 03/24/21 05:03 Pantoprazole Sodium (Protonix) 40 mg DAILY PO 03/21/21 09:00 03/24/21 08:26 Polyethylene Glycol (Miralax) 1 pkt DAILY PO 03/21/21 12:35 03/24/21 08:28 Polyethylene Glycol (Miralax) 1 pkt DAILY PRN PO CONSTIPATION 03/20/21 15:55 03/21/21 12:33 DC Ropinirole HCl (Requip) 2 mg 1400 PO 03/21/21 14:00 03/23/21 13:33 Ropinirole HCl (Requip) 4 mg QHS PO 03/20/21 21:00 03/23/21 21:34 Saliva Substitute (Mouthkote) 2 sprays QID MT 03/21/21 17:00 03/24/21 08:27 Salmeterol Xinafoate/ Fluticasone (Advair Hfa 230/ ) 2 puff RBID INH 03/20/21 20:00 03/24/21 07:10 Senna (Senokot) 1 tab QHS PO 03/20/21 21:00 03/21/21 20:42 Tiotropium [place] (Spiriva Handihaler) 1 inhalation DAILY@08 INH 03/21/21 08:00 03/24/21 07:10 Tizanidine HCl (Zanaflex) 2 mg Q6HP PRN PO SPASMS 03/20/21 15:55 03/21/21 10:23 Vitamin D (Vitamin D) 1,000 units DAILY PO 03/21/21 09:00 03/22/21 09:04 ANGELA ROGERS MD Mar 24, 2021 10:50
[2021-03-24] MEDS: rOPINIRole 2MG TAB PO SCH ×2 (13:30→20:57)
[2021-03-24 14:00] VITALS: BP 110/58
[2021-03-24 20:00] VITALS: BP 129/64
[2021-03-24] MEDS: SENNA 8.6 MG TAB (SENOKOT) PO SCH (20:56)
[2021-03-25] MEDS: oxyCODONE 5MG TAB PO PRN (03:29)
[2021-03-25 05:25] VITALS: BP 163/73
[2021-03-25] MEDS: ADVAIR HFA 230/21MCG INHALER INH SCH ×2 (07:37→20:20)
[2021-03-25] MEDS: TIOTROPIUM INHALER/CAPSULE (SPIRIVA) INH SCH (07:37)
[2021-03-25] MEDS: ACETAMINOPHEN 500 MG TAB PO SCH ×3 (09:00→20:52)
[2021-03-25] MEDS: SALIVA SUBSTITUTE(MOUTHKOTE) BTL MT SCH ×4 (09:48→20:51)
[2021-03-25] MEDS: ASPIRIN 81MG ENTERIC TABLET PO SCH (09:49)
[2021-03-25] MEDS: CALCITONIN NASAL SPRAY 3.7 ML BTL SCH (09:49)
[2021-03-25] MEDS: MULTIVITAMINS/MINERALS THERAP 1 TAB PO SCH (09:50)
[2021-03-25] MEDS: HEPARIN SOD (PORCINE) 5000UNITS/ML 1ML VIAL/SYRINGE SC SCH ×2 (09:50→20:53)
[2021-03-25] MEDS: buPROPion **XL** TABLET 150MG (WELLBUTRIN XL) PO SCH (09:50)
[2021-03-25] MEDS: ATORVASTATIN 10 MG TAB PO SCH (09:51)
[2021-03-25] MEDS: HYDROXYUREA 500 MG CAP PO SCH (09:51)
[2021-03-25] MEDS: DOCUSATE SODIUM 100MG CAPSULE PO SCH ×2 (09:51→20:51)
[2021-03-25] MEDS: MIRALAX *UNIT DOSE* 17GM PACKET PO SCH (09:51)
[2021-03-25] MEDS: PANTOPRAZOLE 40MG TAB (PROTONIX) PO SCH (09:51)
[2021-03-25] MEDS: VITAMIN D 1,000 INTERNATIONAL UNITS TABLET PO SCH (09:51)
[2021-03-25] MEDS: CALCIUM/VITAMIN D 500 MG TAB PO SCH ×2 (09:51→20:52)
[2021-03-25] MEDS: CitaloPRAM (CeleXA) 20 MG TAB PO SCH (09:51)
[2021-03-25] MEDS: lisinopriL 40 MG TAB PO SCH (09:52)
[2021-03-25] MEDS: CYANOCOBALAMIN 500 MCG TAB PO SCH (09:52)
[2021-03-25] MEDS: CARVedilol 12.5 MG TAB PO SCH ×2 (09:56→20:53)
[2021-03-25 12:00] VITALS: BP 132/64
[2021-03-25] MEDS: hydroCHLOROthiazide 12.5 MG CAPSULE PO SCH (12:38)
[2021-03-25 14:00] VITALS: BP 132/60
--- NOTE | 2021-03-25 15:08 | IPNPDOC ---
PM&R Progress Note DATE OF SERVICE: Mar 25, 2021 Director Of Analytics Progress Note Subjective: Patient reporting her back pain is much better and she REVIEW OF SYSTEMS: The following is a completed review of systems and has been reviewed. Review of systems otherwise unremarkable. PAIN: Patient self reports non-radiating low back pain with movement EYES: No recent vision changes EARS, NOSE, & THROAT: No throat pain, or dysphagia, or rhinorrhea, + dry mouth (chronic) CARDIOVASCULAR: Denies chest pain or palpitations PULMONARY: Denies shortness of breath GASTROINTESTINAL: +constipation (resolved) GENITOURINARY: denies dysuria MUSCULOSKELETAL: generalized weakness, T12 compression fracture NEUROLOGICAL: denies paresthesias, + restless leg HEMATOLOGICAL: denies easy bruising SKIN: denies rash PSYCHIATRIC: Unremarkable All other review of systems found to be negative. PHYSICAL EXAMINATION: VITAL SIGNS: Please see below. GENERAL: Pleasant and cooperative. No acute distress. HEENT: PERRL. Extraocular movements intact. Clear conjunctiva, dry mucosa CARDIOVASCULAR: Regular rate and rhythm. No murmurs, rubs, or gallops LUNGS: Clear to auscultation bilaterally. No wheezes. No rhonchi ABDOMEN: Soft, nontender, nondistended. Positive bowel sounds. Normal active bowel sounds NEUROLOGICAL: Alert and oriented times three. Cranial nerves II through XII grossly intact. 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 4/5 strength in left lower extremity. Left anterior sosa with exudative incision site (maceration improved) ASSESSMENT:86-year-old F with past medical history of HTN who presents status post fall with T12 compression fracture with intractable low back pain and difficulty ambulating PLAN: 1. Rehab- PT/OT advance mobilty and ADLs, TLSO when out of bed (discussed with Becka's nurse, ok to remove when in bed to avoid skin breakdown and limit anxiety with resulting elevated BPs) 3. Ortho- s/p fall with T12 compression fracture, c/u intranasal calcitonin for acute bone pain, c/u standing Tylenol 1gm TID, and oxycodone prn, tizanidine ordered prn as well 4. neuro- patient on high dose of requip for her RLS, this may be contributing to her xerostomia and episodes of visual hallucinations (patient reported 2 episodes)- will refer to neuro on d/c as will benefit from formal cog/dementia work-up and have her Requip dosing reviewed- reviewed overall case with daughter Dionne today) 4. Cardiac- hx of HTN, with elevated BPs possibly due to pain/anxiety from fracture/brace, BPs beginning to improve, c/u HCTZ, increased dose of lisinopril 40mg daily and Coreg -per last ECHO patient with grade 1 diastolic CHF, will monitor for fluid overload to see if diuretic , c/u HCTZ, daily weights and fluid restrict -HLD- cu statin 5. Resp- hx of COPD not on 02, monitor for infection, c/u spiriva and advair 6. Heme- hx of thrombocytosis on hydroxyurea and ASA 162mg daily (PMD's office called back today to clarify ASA dosing and reason for its use)- platelets currently WNL 7. Pain- please see ortho 8. DVT ppx- heparin and TEDs 9. Psych- celexa 10. Derm- patient underwent Mohs procedure end of February with poor healing incision site,will start Santyl and increase dressing changes to BID per instructions 11. Dispo- TBD Allergies Coded Allergies: No Known Allergies (Unverified , 01/28/20) Vital Signs Vital Signs Date Time Temp Pulse Resp B/P (MAP) Pulse Ox O2 Delivery O2 Flow Rate FiO2 03/25/21 12:00 132/64 (86) 03/25/21 09:56 65 03/25/21 05:25 97.4 19 91 Room Air Current Medications Current Medications Current Medications Medications (Trade) Dose Ordered Sig/Sanya Route PRN Reason Start Time Stop Time Status Last Admin Dose Admin Acetaminophen (Tylenol Tab) 1,000 mg TID PO 03/20/21 16:00 03/24/21 20:56 Amlodipine Besylate (Norvasc) 10 mg DAILY PO 03/24/21 09:00 03/25/21 09:56 Amlodipine Besylate (Norvasc) 10 mg QHS PO 03/22/21 21:00 03/22/21 16:39 DC Aspirin (Ecotrin) 81 mg BID PO 03/20/21 21:00 03/21/21 13:19 DC 03/21/21 07:42 Aspirin (Ecotrin) 162 mg QAM PO 03/22/21 09:00 03/25/21 09:49 Atorvastatin Calcium (Lipitor) 10 mg MoTuWeThFr@0900 PO 03/21/21 09:00 03/25/21 09:51 Bisacodyl (Dulcolax Suppository) 10 mg DAILYPRN PRN [place] CONSTIPATION 03/20/21 15:55 Bupropion HCl (Wellbutrin Xl) 150 mg DAILY PO 03/21/21 09:00 03/25/21 09:50 Calcitonin [place] (Miacalcin (Fortical)) 1 sprays DAILY NA 03/21/21 09:00 03/27/21 09:01 03/25/21 09:49 Calcium/Vitamin D (Oscal D) 500 mg BID PO 03/20/21 21:00 03/25/21 09:51 Carvedilol (COReg) 25 mg BID PO 03/20/21 21:00 03/25/21 09:56 Citalopram Hydrobromide (CeleXA) 40 mg DAILY PO 03/21/21 09:00 03/25/21 09:51 Collagenase (SantyL) 1 dose BID TOP 03/25/21 09:00 Cyanocobalamin (Vitamin B12) 1,000 mcg DAILY PO 03/21/21 09:00 03/25/21 09:52 Docusate Sodium (Colace) 100 mg BID PO 03/20/21 21:00 03/25/21 09:51 Heparin Sodium (Porcine) (Heparin) 5,000 units Q12H SC 03/20/21 21:00 03/25/21 09:50 Hydralazine HCl (Apresoline) 25 mg Q6H PO 03/21/21 18:00 03/22/21 10:22 DC 03/22/21 09:40 Hydralazine HCl (Apresoline) 50 mg Q6H PO 03/22/21 18:00 03/22/21 16:39 DC Hydrochlorothiazide (Hydrodiuril) 12.5 mg DAILY PO 03/25/21 12:00 03/25/21 12:38 Hydroxyurea (Hydrea) 1,000 mg SuTuWeFrSa@0900 PO 03/21/21 09:00 03/25/21 09:51 Hydroxyurea (Hydrea) 1,500 mg MoTh@0900 PO 03/24/21 09:00 03/24/21 08:27 Lisinopril (Prinivil) 20 mg DAILY PO 03/21/21 09:00 03/22/21 09:29 DC 03/22/21 07:12 Lisinopril (Prinivil) 40 mg DAILY PO 03/23/21 09:00 03/25/21 09:52 Multivitamins (Fruity Chews-Children'S) 1 tab DAILY PO 03/26/21 09:00 Multivitamins (Theragram-M) 1 tab DAILY PO 03/21/21 09:00 03/25/21 12:44 DC 03/25/21 09:50 Oxycodone HCl (Roxicodone, Oxyir) 5 mg Q4HP PRN PO PAIN 03/20/21 15:55 03/25/21 03:29 Pantoprazole Sodium (Protonix) 40 mg DAILY PO 03/21/21 09:00 03/25/21 09:51 Polyethylene Glycol (Miralax) 1 pkt DAILY PO 03/21/21 12:35 03/25/21 09:51 Polyethylene Glycol (Miralax) 1 pkt DAILY PRN PO CONSTIPATION 03/20/21 15:55 03/21/21 12:33 DC Ropinirole HCl (Requip) 2 mg 1400 PO 03/21/21 14:00 03/24/21 13:30 Ropinirole HCl (Requip) 4 mg QHS PO 03/20/21 21:00 03/24/21 20:57 Saliva Substitute (Mouthkote) 2 sprays QID MT 03/21/21 17:00 03/25/21 09:48 Salmeterol Xinafoate/ Fluticasone (Advair Hfa 230/ ) 2 puff RBID INH 03/20/21 20:00 03/25/21 07:37 Senna (Senokot) 1 tab QHS PO 03/20/21 21:00 03/24/21 20:56 Tiotropium [place] (Spiriva Handihaler) 1 inhalation DAILY@08 INH 03/21/21 08:00 03/25/21 07:37 Tizanidine HCl (Zanaflex) 2 mg Q6HP PRN PO SPASMS 6/10/21 15:55 03/21/21 10:23 Vitamin D (Vitamin D) 1,000 units DAILY PO 03/21/21 09:00 03/25/21 09:51 ANGELA ROGERS MD Mar 25, 2021 15:08
[2021-03-25] MEDS: rOPINIRole 2MG TAB PO SCH ×2 (15:49→20:52)
[2021-03-25] MEDS: SANTYL OINT 30GM TOP SCH ×2 (15:50→20:54)
[2021-03-25 20:00] VITALS: BP 108/60
[2021-03-25] MEDS: SENNA 8.6 MG TAB (SENOKOT) PO SCH (20:56)
[2021-03-26] MEDS: oxyCODONE 5MG TAB PO PRN ×2 (02:30→21:48)
[2021-03-26 06:00] VITALS: BP 150/80
[2021-03-26] MEDS: ADVAIR HFA 230/21MCG INHALER INH SCH ×2 (07:11→19:36)
[2021-03-26] MEDS: TIOTROPIUM INHALER/CAPSULE (SPIRIVA) INH SCH (07:11)
[2021-03-26 07:22] LABS: BASO # 0.1 10^3/uL (0.0-0.2); BASO % 0.6 % (0.0-1.0); EOS # 0.1 10^3/uL (0.0-0.5); EOS % 1.2 % (0.0-3.0); HEMATOCRIT 35.2 % (36.0-47.0); HEMOGLOBIN 11.8 g/dl (12.0-15.5); LYMPH # 0.8 10^3/uL (1.5-5.0); LYMPH % 9.5 % (24.0-44.0); MEAN CORPUSCULAR HEMOGLOBIN 39.1 pg (27.0-33.0); MEAN CORPUSCULAR HGB CONC 33.5 g/dl (32.0-36.5); MONO # 0.6 10^3/uL (0.0-0.8); MONO % 6.7 % (2.0-8.0); NEUTROPHILS # 7.1 10^3/uL (1.5-8.5); NEUTROPHILS % 80.3 % (36.0-66.0); PLATELET COUNT, AUTOMATED 461 10^3/uL (150-450); RED BLOOD COUNT 3.02 10^6/uL (4.00-5.40); WHITE BLOOD COUNT 8.8 10^3/uL (4.0-10.0)
[2021-03-26 07:29] LABS: MEAN CORPUSCULAR VOLUME 116.6 fl (80.0-96.0)
[2021-03-26 07:40] LABS: CREATININE FOR GFR 0.99 MG/DL (0.55-1.30); GLOMERULAR FILTRATION RATE 56.4 (>32); POTASSIUM SERUM 4.2 MEQ/L (3.5-5.1)
[2021-03-26 08:08] LABS: ANISOCYTOSIS 2+; POIKILOCYTOSIS 1+
[2021-03-26 08:09] LABS: PLATELET ESTIMATE INCREASED (NORMAL)
[2021-03-26] MEDS: CYANOCOBALAMIN 500 MCG TAB PO SCH (08:30)
[2021-03-26] MEDS: lisinopriL 40 MG TAB PO SCH (08:30)
[2021-03-26] MEDS: ASPIRIN 81MG ENTERIC TABLET PO SCH (08:30)
[2021-03-26] MEDS: CALCIUM/VITAMIN D 500 MG TAB PO SCH ×2 (08:30→21:46)
[2021-03-26] MEDS: VITAMIN D 1,000 INTERNATIONAL UNITS TABLET PO SCH (08:30)
[2021-03-26] MEDS: CitaloPRAM (CeleXA) 20 MG TAB PO SCH (08:30)
[2021-03-26] MEDS: ACETAMINOPHEN 500 MG TAB PO SCH ×5 (08:30→22:10)
[2021-03-26] MEDS: ATORVASTATIN 10 MG TAB PO SCH (08:30)
[2021-03-26] MEDS: PANTOPRAZOLE 40MG TAB (PROTONIX) PO SCH (08:30)
[2021-03-26] MEDS: HYDROXYUREA 500 MG CAP PO SCH (08:30)
[2021-03-26] MEDS: buPROPion **XL** TABLET 150MG (WELLBUTRIN XL) PO SCH (08:30)
[2021-03-26] MEDS: MIRALAX *UNIT DOSE* 17GM PACKET PO SCH (08:31)
[2021-03-26] MEDS: MULTIVITAMINS CHILDREN'S CHEWABLE TABLET PO SCH (08:31)
[2021-03-26] MEDS: SANTYL OINT 30GM TOP SCH ×2 (08:31→21:50)
[2021-03-26] MEDS: CARVedilol 12.5 MG TAB PO SCH ×2 (08:31→21:49)
[2021-03-26] MEDS: DOCUSATE SODIUM 100MG CAPSULE PO SCH ×2 (08:31→21:48)
[2021-03-26] MEDS: hydroCHLOROthiazide 12.5 MG CAPSULE PO SCH (08:31)
[2021-03-26] MEDS: HEPARIN SOD (PORCINE) 5000UNITS/ML 1ML VIAL/SYRINGE SC SCH ×2 (08:32→21:46)
[2021-03-26] MEDS: CALCITONIN NASAL SPRAY 3.7 ML BTL SCH (08:32)
[2021-03-26] MEDS: SALIVA SUBSTITUTE(MOUTHKOTE) BTL MT SCH ×4 (08:32→21:00)
[2021-03-26] MEDS: rOPINIRole 2MG TAB PO SCH ×2 (13:33→21:46)
[2021-03-26 14:00] VITALS: BP 133/63
--- NOTE | 2021-03-26 15:15 | IPNPDOC ---
PM&R Progress Note DATE OF SERVICE: Mar 26, 2021 Audiologist Progress Note Subjective: Patient stating she is feeling well and has no complaints. REVIEW OF SYSTEMS: The following is a completed review of systems and has been reviewed. Review of systems otherwise unremarkable. PAIN: Patient self reports non-radiating low back pain with movement EYES: No recent vision changes EARS, NOSE, & THROAT: No throat pain, or dysphagia, or rhinorrhea, + dry mouth (chronic) CARDIOVASCULAR: Denies chest pain or palpitations PULMONARY: Denies shortness of breath GASTROINTESTINAL: +constipation (resolved) GENITOURINARY: denies dysuria MUSCULOSKELETAL: generalized weakness, T12 compression fracture NEUROLOGICAL: denies paresthesias, + restless leg HEMATOLOGICAL: denies easy bruising SKIN: denies rash PSYCHIATRIC: Unremarkable All other review of systems found to be negative. PHYSICAL EXAMINATION: VITAL SIGNS: Please see below. GENERAL: Pleasant and cooperative. No acute distress. HEENT: PERRL. Extraocular movements intact. Clear conjunctiva, dry mucosa CARDIOVASCULAR: Regular rate and rhythm. No murmurs, rubs, or gallops LUNGS: Clear to auscultation bilaterally. No wheezes. No rhonchi ABDOMEN: Soft, nontender, nondistended. Positive bowel sounds. Normal active bowel sounds NEUROLOGICAL: Alert and oriented times three. Cranial nerves II through XII grossly intact. 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 4/5 strength in left lower extremity. Left anterior sosa with exudative incision site (maceration improved) ASSESSMENT:86-year-old F with past medical history of HTN who presents status post fall with T12 compression fracture with intractable low back pain and difficulty ambulating PLAN: 1. Rehab- PT/OT advance mobilty and ADLs, TLSO when out of bed (discussed with Becka's nurse, ok to remove when in bed to avoid skin breakdown and limit anxiety with resulting elevated BPs) 3. Ortho- s/p fall with T12 compression fracture, c/u intranasal calcitonin for acute bone pain, c/u standing Tylenol 1gm TID, and oxycodone prn, tizanidine ordered prn as well 4. neuro- patient on high dose of requip for her RLS, this may be contributing to her xerostomia and episodes of visual hallucinations (patient reported 2 episodes)- will refer to neuro on d/c as will benefit from formal cog/dementia work-up and have her Requip dosing reviewed- reviewed overall case with daughter Dionne) 4. Cardiac- hx of HTN, with elevated BPs possibly due to pain/anxiety from fracture/brace, BPs beginning to improve, c/u HCTZ, increased dose of lisinopril 40mg daily and Coreg -per last ECHO patient with grade 1 diastolic CHF, will monitor for fluid overload to see if diuretic , c/u HCTZ, daily weights and fluid restrict -HLD- cu statin 5. Resp- hx of COPD not on 02, monitor for infection, c/u spiriva and advair 6. Heme- hx of thrombocytosis on hydroxyurea and ASA 162mg daily (PMD's office called back today to clarify ASA dosing and reason for its use)- platelets currently WNL 7. Pain- please see ortho 8. DVT ppx- heparin and TEDs 9. Psych- celexa 10. Derm- patient underwent Mohs procedure end of February with poor healing incision site, c/u Santyl and increase dressing changes to BID per instructions 11. Dispo- TBD Allergies Coded Allergies: No Known Allergies (Unverified , 01/28/20) Vital Signs Vital Signs Date Time Temp Pulse Resp B/P (MAP) Pulse Ox O2 Delivery O2 Flow Rate FiO2 03/26/21 14:00 97.5 65 18 133/63 (86) 96 Room Air Laboratory Data CBC/BMP Laboratory Tests 03/26/21 06:57 Labs 24H Laboratory Tests 2 03/26/21 06:57: Immature Granulocyte % (Auto) 1.7, Neutrophils (%) (Auto) 80.3H, Lymphocytes (%) (Auto) 9.5L, Monocytes (%) (Auto) 6.7, Eosinophils (%) (Auto) 1.2, Basophils (%) (Auto) 0.6, Neutrophils # (Auto) 7.1, Lymphocytes # (Auto) 0.8L, Monocytes # (Auto) 0.6, Eosinophils # (Auto) 0.1, Basophils # (Auto) 0.1, Nucleated Red Blood Cells % (auto) 0.0, Platelet Estimate INCREASED, Poikilocytosis 1+, Anisocytosis 2+, Macrocytosis 2+, Anion Gap 8, Glomerular Filtration Rate 56.4, Calcium Level 9.0 Current Medications Current Medications Current Medications Medications (Trade) Dose Ordered Sig/Sanya Route PRN Reason Start Time Stop Time Status Last Admin Dose Admin Acetaminophen (Tylenol Tab) 1,000 mg TID PO 03/20/21 16:00 03/26/21 08:30 Amlodipine Besylate (Norvasc) 10 mg DAILY PO 03/24/21 09:00 03/26/21 08:30 Amlodipine Besylate (Norvasc) 10 mg QHS PO 03/22/21 21:00 03/22/21 16:39 DC Aspirin (Ecotrin) 81 mg BID PO 03/20/21 21:00 03/21/21 13:19 DC 03/21/21 07:42 Aspirin (Ecotrin) 162 mg QAM PO 03/22/21 09:00 03/26/21 08:30 Atorvastatin Calcium (Lipitor) 10 mg MoTuWeThFr@0900 PO 03/21/21 09:00 03/26/21 08:30 Bisacodyl (Dulcolax Suppository) 10 mg DAILYPRN PRN [place] CONSTIPATION 03/20/21 15:55 Bupropion HCl (Wellbutrin Xl) 150 mg DAILY PO 03/21/21 09:00 03/26/21 08:30 Calcitonin [place] (Miacalcin (Fortical)) 1 sprays DAILY NA 03/21/21 09:00 03/27/21 09:01 03/26/21 08:32 Calcium/Vitamin D (Oscal D) 500 mg BID PO 03/20/21 21:00 03/26/21 08:30 Carvedilol (COReg) 25 mg BID PO 03/20/21 21:00 03/26/21 08:31 Citalopram Hydrobromide (CeleXA) 40 mg DAILY PO 03/21/21 09:00 03/26/21 08:30 Collagenase (SantyL) 1 dose BID TOP 03/25/21 09:00 03/26/21 08:31 Cyanocobalamin (Vitamin B12) 1,000 mcg DAILY PO 03/21/21 09:00 03/26/21 08:30 Docusate Sodium (Colace) 100 mg BID PO 03/20/21 21:00 03/26/21 08:31 Heparin Sodium (Porcine) (Heparin) 5,000 units Q12H SC 03/20/21 21:00 03/26/21 08:32 Hydralazine HCl (Apresoline) 25 mg Q6H PO 03/21/21 18:00 03/22/21 10:22 DC 03/22/21 09:40 Hydralazine HCl (Apresoline) 50 mg Q6H PO 03/22/21 18:00 03/22/21 16:39 DC Hydrochlorothiazide (Hydrodiuril) 12.5 mg DAILY PO 03/25/21 12:00 03/26/21 08:31 Hydroxyurea (Hydrea) 1,000 mg SuTuWeFrSa@0900 PO 03/21/21 09:00 03/26/21 08:30 Hydroxyurea (Hydrea) 1,500 mg MoTh@0900 PO 03/24/21 09:00 03/24/21 08:27 Lisinopril (Prinivil) 20 mg DAILY PO 03/21/21 09:00 03/22/21 09:29 DC 03/22/21 07:12 Lisinopril (Prinivil) 40 mg DAILY PO 03/23/21 09:00 03/26/21 08:30 Multivitamins (Fruity Chews-Children'S) 1 tab DAILY PO 03/26/21 09:00 03/26/21 08:31 Multivitamins (Theragram-M) 1 tab DAILY PO 03/21/21 09:00 03/25/21 12:44 DC 03/25/21 09:50 Oxycodone HCl (Roxicodone, Oxyir) 5 mg Q4HP PRN PO PAIN 03/20/21 15:55 03/26/21 02:30 Pantoprazole Sodium (Protonix) 40 mg DAILY PO 03/21/21 09:00 03/26/21 08:30 Polyethylene Glycol (Miralax) 1 pkt DAILY PO 03/21/21 12:35 03/26/21 08:31 Polyethylene Glycol (Miralax) 1 pkt DAILY PRN PO CONSTIPATION 03/20/21 15:55 03/21/21 12:33 DC Ropinirole HCl (Requip) 2 mg 1400 PO 03/21/21 14:00 03/26/21 13:33 Ropinirole HCl (Requip) 4 mg QHS PO 03/20/21 21:00 03/25/21 20:52 Saliva Substitute (Mouthkote) 2 sprays QID MT 03/21/21 17:00 03/26/21 08:32 Salmeterol Xinafoate/ Fluticasone (Advair Hfa ) 2 puff RBID INH 03/20/21 20:00 03/26/21 07:11 Senna (Senokot) 1 tab QHS PO 03/20/21 21:00 03/25/21 20:56 Tiotropium [place] (Spiriva Handihaler) 1 inhalation DAILY@08 INH 03/21/21 08:00 03/26/21 07:11 Tizanidine HCl (Zanaflex) 2 mg Q6HP PRN PO SPASMS 03/20/21 15:55 03/26/21 10:25 DC 03/21/21 10:23 Vitamin D (Vitamin D) 1,000 units DAILY PO 03/21/21 09:00 03/26/21 08:30 ANGELA ROGERS MD Mar 26, 2021 15:15
[2021-03-26 20:00] VITALS: BP 114/78
[2021-03-26] MEDS: SENNA 8.6 MG TAB (SENOKOT) PO SCH (21:48)
[2021-03-27 04:49] VITALS: BP 134/62
[2021-03-27] MEDS: TIOTROPIUM INHALER/CAPSULE (SPIRIVA) INH SCH (07:36)
[2021-03-27] MEDS: ADVAIR HFA 230/21MCG INHALER INH SCH ×2 (07:36→20:42)
[2021-03-27] MEDS: MIRALAX *UNIT DOSE* 17GM PACKET PO SCH (08:58)
[2021-03-27] MEDS: SALIVA SUBSTITUTE(MOUTHKOTE) BTL MT SCH ×4 (08:59→20:32)
[2021-03-27] MEDS: CALCITONIN NASAL SPRAY 3.7 ML BTL SCH (09:00)
[2021-03-27] MEDS: HYDROXYUREA 500 MG CAP PO SCH (09:01)
[2021-03-27] MEDS: HEPARIN SOD (PORCINE) 5000UNITS/ML 1ML VIAL/SYRINGE SC SCH ×2 (09:01→20:29)
[2021-03-27] MEDS: buPROPion **XL** TABLET 150MG (WELLBUTRIN XL) PO SCH (09:01)
[2021-03-27] MEDS: PANTOPRAZOLE 40MG TAB (PROTONIX) PO SCH (09:02)
[2021-03-27] MEDS: MULTIVITAMINS CHILDREN'S CHEWABLE TABLET PO SCH (09:02)
[2021-03-27] MEDS: CitaloPRAM (CeleXA) 20 MG TAB PO SCH (09:02)
[2021-03-27] MEDS: lisinopriL 40 MG TAB PO SCH (09:02)
[2021-03-27] MEDS: ASPIRIN 81MG ENTERIC TABLET PO SCH (09:02)
[2021-03-27] MEDS: hydroCHLOROthiazide 12.5 MG CAPSULE PO SCH (09:02)
[2021-03-27] MEDS: DOCUSATE SODIUM 100MG CAPSULE PO SCH ×2 (09:03→20:32)
[2021-03-27] MEDS: CALCIUM/VITAMIN D 500 MG TAB PO SCH ×2 (09:03→20:31)
[2021-03-27] MEDS: ATORVASTATIN 10 MG TAB PO SCH (09:03)
[2021-03-27] MEDS: VITAMIN D 1,000 INTERNATIONAL UNITS TABLET PO SCH (09:03)
[2021-03-27] MEDS: CYANOCOBALAMIN 500 MCG TAB PO SCH (09:03)
[2021-03-27] MEDS: CARVedilol 12.5 MG TAB PO SCH ×2 (09:04→20:31)
[2021-03-27] MEDS: ACETAMINOPHEN 500 MG TAB PO SCH ×3 (09:05→20:31)
[2021-03-27] MEDS: SANTYL OINT 30GM TOP SCH ×2 (09:06→20:29)
[2021-03-27] MEDS: rOPINIRole 2MG TAB PO SCH ×2 (13:09→20:33)
[2021-03-27 14:00] VITALS: BP 142/70
[2021-03-27 20:24] VITALS: BP 150/65
[2021-03-27] MEDS: SENNA 8.6 MG TAB (SENOKOT) PO SCH (20:31)
[2021-03-28 06:00] VITALS: BP 154/70
[2021-03-28] MEDS: TIOTROPIUM INHALER/CAPSULE (SPIRIVA) INH SCH (07:52)
[2021-03-28] MEDS: ADVAIR HFA 230/21MCG INHALER INH SCH ×2 (07:52→20:20)
[2021-03-28 08:08] LABS: BASO % 0.5 % (0.0-1.0); EOS # 0.1 10^3/uL (0.0-0.5); EOS % 0.9 % (0.0-3.0); HEMATOCRIT 35.5 % (36.0-47.0); HEMOGLOBIN 12.1 g/dl (12.0-15.5); LYMPH # 0.7 10^3/uL (1.5-5.0); LYMPH % 8.7 % (24.0-44.0); MEAN CORPUSCULAR HEMOGLOBIN 39.7 pg (27.0-33.0); MEAN CORPUSCULAR HGB CONC 34.1 g/dl (32.0-36.5); MONO # 0.5 10^3/uL (0.0-0.8); MONO % 6.3 % (2.0-8.0); NEUTROPHILS % 81.8 % (36.0-66.0); PLATELET COUNT, AUTOMATED 448 10^3/uL (150-450); RED BLOOD COUNT 3.05 10^6/uL (4.00-5.40); WHITE BLOOD COUNT 8.5 10^3/uL (4.0-10.0)
[2021-03-28 08:16] LABS: MEAN CORPUSCULAR VOLUME 116.4 fl (80.0-96.0)
[2021-03-28] MEDS: SANTYL OINT 30GM TOP SCH ×2 (08:34→21:09)
[2021-03-28] MEDS: SALIVA SUBSTITUTE(MOUTHKOTE) BTL MT SCH ×4 (08:34→21:00)
[2021-03-28] MEDS: MULTIVITAMINS CHILDREN'S CHEWABLE TABLET PO SCH (08:35)
[2021-03-28] MEDS: ATORVASTATIN 10 MG TAB PO SCH (08:35)
[2021-03-28] MEDS: HEPARIN SOD (PORCINE) 5000UNITS/ML 1ML VIAL/SYRINGE SC SCH ×2 (08:35→21:09)
[2021-03-28] MEDS: hydroCHLOROthiazide 12.5 MG CAPSULE PO SCH (08:35)
[2021-03-28] MEDS: VITAMIN D 1,000 INTERNATIONAL UNITS TABLET PO SCH (08:35)
[2021-03-28] MEDS: MIRALAX *UNIT DOSE* 17GM PACKET PO SCH (08:35)
[2021-03-28] MEDS: DOCUSATE SODIUM 100MG CAPSULE PO SCH ×2 (08:35→21:00)
[2021-03-28] MEDS: buPROPion **XL** TABLET 150MG (WELLBUTRIN XL) PO SCH (08:35)
[2021-03-28] MEDS: CitaloPRAM (CeleXA) 20 MG TAB PO SCH (08:36)
[2021-03-28] MEDS: ASPIRIN 81MG ENTERIC TABLET PO SCH (08:36)
[2021-03-28] MEDS: CALCIUM/VITAMIN D 500 MG TAB PO SCH ×2 (08:36→21:08)
[2021-03-28] MEDS: CYANOCOBALAMIN 500 MCG TAB PO SCH (08:36)
[2021-03-28] MEDS: ACETAMINOPHEN 500 MG TAB PO SCH ×3 (08:37→21:09)
[2021-03-28] MEDS: HYDROXYUREA 500 MG CAP PO SCH (08:37)
[2021-03-28] MEDS: PANTOPRAZOLE 40MG TAB (PROTONIX) PO SCH (08:37)
[2021-03-28 08:38] LABS: CALCIUM LEVEL 8.9 MG/DL (8.8-10.2); CREATININE FOR GFR 1.13 MG/DL (0.55-1.30); GLOMERULAR FILTRATION RATE 48.4 (>32); POTASSIUM SERUM 4.4 MEQ/L (3.5-5.1)
[2021-03-28] MEDS: CARVedilol 12.5 MG TAB PO SCH ×2 (08:41→21:00)
[2021-03-28] MEDS: lisinopriL 40 MG TAB PO SCH (08:41)
[2021-03-28 09:19] LABS: ANISOCYTOSIS 1+; PLATELET ESTIMATE NORMAL (NORMAL)
[2021-03-28 09:20] LABS: OVALOCYTES 1+
[2021-03-28] MEDS: **hydrALAZINE HCL** 25 MG TAB PO SCH ×2 (13:27→22:00)
[2021-03-28] MEDS: rOPINIRole 2MG TAB PO SCH ×2 (13:28→21:08)
[2021-03-28 14:00] VITALS: BP 119/58
[2021-03-28] MEDS: oxyCODONE 5MG TAB PO PRN (14:12)
[2021-03-28 20:00] VITALS: BP 102/52
[2021-03-28] MEDS: SENNA 8.6 MG TAB (SENOKOT) PO SCH (21:00)
[2021-03-29] MEDS: **hydrALAZINE HCL** 25 MG TAB PO SCH ×3 (05:17→21:53)
[2021-03-29 06:00] VITALS: BP 142/58
[2021-03-29] MEDS: ADVAIR HFA 230/21MCG INHALER INH SCH ×2 (07:10→21:52)
[2021-03-29] MEDS: TIOTROPIUM INHALER/CAPSULE (SPIRIVA) INH SCH (07:10)
[2021-03-29] MEDS: HEPARIN SOD (PORCINE) 5000UNITS/ML 1ML VIAL/SYRINGE SC SCH ×2 (08:51→20:17)
[2021-03-29] MEDS: VITAMIN D 1,000 INTERNATIONAL UNITS TABLET PO SCH (08:52)
[2021-03-29] MEDS: CYANOCOBALAMIN 500 MCG TAB PO SCH (08:52)
[2021-03-29] MEDS: CARVedilol 12.5 MG TAB PO SCH ×2 (08:52→20:17)
[2021-03-29] MEDS: HYDROXYUREA 500 MG CAP PO SCH (08:52)
[2021-03-29] MEDS: DOCUSATE SODIUM 100MG CAPSULE PO SCH ×2 (08:52→20:18)
[2021-03-29] MEDS: MULTIVITAMINS CHILDREN'S CHEWABLE TABLET PO SCH (08:52)
[2021-03-29] MEDS: ASPIRIN 81MG ENTERIC TABLET PO SCH (08:52)
[2021-03-29] MEDS: CitaloPRAM (CeleXA) 20 MG TAB PO SCH (08:53)
[2021-03-29] MEDS: PANTOPRAZOLE 40MG TAB (PROTONIX) PO SCH (08:53)
[2021-03-29] MEDS: CALCIUM/VITAMIN D 500 MG TAB PO SCH ×2 (08:53→20:16)
[2021-03-29] MEDS: MIRALAX *UNIT DOSE* 17GM PACKET PO SCH (08:53)
[2021-03-29] MEDS: SANTYL OINT 30GM TOP SCH ×2 (08:53→20:18)
[2021-03-29] MEDS: buPROPion **XL** TABLET 150MG (WELLBUTRIN XL) PO SCH (08:53)
[2021-03-29] MEDS: lisinopriL 40 MG TAB PO SCH (08:53)
[2021-03-29] MEDS: ACETAMINOPHEN 500 MG TAB PO SCH ×3 (08:53→20:16)
[2021-03-29] MEDS: SALIVA SUBSTITUTE(MOUTHKOTE) BTL MT SCH ×4 (08:53→20:14)
[2021-03-29 13:01] VITALS: BP 110/59
[2021-03-29] MEDS: oxyCODONE 5MG TAB PO PRN (13:04)
[2021-03-29] MEDS: rOPINIRole 2MG TAB PO SCH ×2 (13:06→20:16)
[2021-03-29 20:00] VITALS: BP 132/60
[2021-03-29] MEDS: SENNA 8.6 MG TAB (SENOKOT) PO SCH (20:16)
[2021-03-30] MEDS: **hydrALAZINE HCL** 25 MG TAB PO SCH ×3 (05:37→22:00)
[2021-03-30 06:00] VITALS: BP 130/70
[2021-03-30] MEDS: MIRALAX *UNIT DOSE* 17GM PACKET PO SCH (07:08)
[2021-03-30] MEDS: SALIVA SUBSTITUTE(MOUTHKOTE) BTL MT SCH ×4 (07:15→20:22)
[2021-03-30] MEDS: ADVAIR HFA 230/21MCG INHALER INH SCH ×2 (07:23→20:54)
[2021-03-30] MEDS: TIOTROPIUM INHALER/CAPSULE (SPIRIVA) INH SCH (07:23)
[2021-03-30] MEDS: HEPARIN SOD (PORCINE) 5000UNITS/ML 1ML VIAL/SYRINGE SC SCH ×2 (07:38→20:20)
[2021-03-30] MEDS: ASPIRIN 81MG ENTERIC TABLET PO SCH (07:39)
[2021-03-30] MEDS: CALCIUM/VITAMIN D 500 MG TAB PO SCH ×2 (07:39→20:23)
[2021-03-30] MEDS: ACETAMINOPHEN 500 MG TAB PO SCH ×3 (07:39→20:21)
[2021-03-30] MEDS: HYDROXYUREA 500 MG CAP PO SCH (07:39)
[2021-03-30] MEDS: VITAMIN D 1,000 INTERNATIONAL UNITS TABLET PO SCH (07:40)
[2021-03-30] MEDS: PANTOPRAZOLE 40MG TAB (PROTONIX) PO SCH (07:40)
[2021-03-30] MEDS: CYANOCOBALAMIN 500 MCG TAB PO SCH (07:40)
[2021-03-30] MEDS: CitaloPRAM (CeleXA) 20 MG TAB PO SCH (07:40)
[2021-03-30] MEDS: lisinopriL 40 MG TAB PO SCH (07:40)
[2021-03-30] MEDS: ATORVASTATIN 10 MG TAB PO SCH (07:40)
[2021-03-30] MEDS: buPROPion **XL** TABLET 150MG (WELLBUTRIN XL) PO SCH (07:41)
[2021-03-30] MEDS: SANTYL OINT 30GM TOP SCH ×2 (07:41→20:25)
[2021-03-30] MEDS: MULTIVITAMINS CHILDREN'S CHEWABLE TABLET PO SCH (07:41)
[2021-03-30] MEDS: DOCUSATE SODIUM 100MG CAPSULE PO SCH ×2 (07:41→20:22)
[2021-03-30] MEDS: CARVedilol 12.5 MG TAB PO SCH ×2 (07:41→20:22)
[2021-03-30] MEDS: oxyCODONE 5MG TAB PO PRN (10:58)
[2021-03-30 13:25] VITALS: BP 121/58
[2021-03-30] MEDS: rOPINIRole 2MG TAB PO SCH ×2 (13:26→20:21)
[2021-03-30] MEDS: SENNA 8.6 MG TAB (SENOKOT) PO SCH (20:23)
[2021-03-30 21:35] VITALS: BP 131/62
[2021-03-31] MEDS: **hydrALAZINE HCL** 25 MG TAB PO SCH (05:55)
[2021-03-31 06:16] VITALS: BP 150/72
[2021-03-31] MEDS: TIOTROPIUM INHALER/CAPSULE (SPIRIVA) INH SCH (07:19)
[2021-03-31] MEDS: ADVAIR HFA 230/21MCG INHALER INH SCH (07:19)
[2021-03-31 07:25] LABS: CALCIUM LEVEL 9.1 MG/DL (8.8-10.2); CREATININE FOR GFR 1.24 MG/DL (0.55-1.30); GLOMERULAR FILTRATION RATE 43.5 (>32); POTASSIUM SERUM 4.1 MEQ/L (3.5-5.1)
[2021-03-31] MEDS ORDERED: INCR1INH INH (08:24)
[2021-03-31] MEDS ORDERED: LISI40TA4 PO (08:24)
[2021-03-31] MEDS ORDERED: AMLO1TAB25 PO (08:24)
[2021-03-31] MEDS ORDERED: ROPI2TAB3 PO (08:24)
[2021-03-31] MEDS ORDERED: HYDR500C PO ×2 (08:24)
[2021-03-31] MEDS ORDERED: BUPR150T12 PO (08:24)
[2021-03-31] MEDS ORDERED: ASPI-551 PO (08:24)
[2021-03-31] MEDS ORDERED: ATOR1TAB19 PO ×2 (08:24)
[2021-03-31] MEDS ORDERED: CITA40TA4 PO (08:24)
[2021-03-31] MEDS ORDERED: CARV25TA PO (08:24)
[2021-03-31] MEDS ORDERED: BREO1INH3 INH (08:24)
[2021-03-31] MEDS ORDERED: HYDR25TA PO (08:24)
[2021-03-31] MEDS ORDERED: PROAAER10 INH (08:24)
[2021-03-31] MEDS: ASPIRIN 81MG ENTERIC TABLET PO SCH (08:48)
[2021-03-31] MEDS: ATORVASTATIN 10 MG TAB PO SCH (08:49)
[2021-03-31] MEDS: ACETAMINOPHEN 500 MG TAB PO SCH (08:49)
[2021-03-31] MEDS: DOCUSATE SODIUM 100MG CAPSULE PO SCH (08:49)
[2021-03-31] MEDS: PANTOPRAZOLE 40MG TAB (PROTONIX) PO SCH (08:49)
[2021-03-31] MEDS: MULTIVITAMINS CHILDREN'S CHEWABLE TABLET PO SCH (08:49)
[2021-03-31] MEDS: buPROPion **XL** TABLET 150MG (WELLBUTRIN XL) PO SCH (08:49)
[2021-03-31] MEDS: VITAMIN D 1,000 INTERNATIONAL UNITS TABLET PO SCH (08:49)
[2021-03-31] MEDS: CitaloPRAM (CeleXA) 20 MG TAB PO SCH (08:49)
[2021-03-31 08:50] VITALS: BP 150/70
[2021-03-31] MEDS: CARVedilol 12.5 MG TAB PO SCH (08:50)
[2021-03-31] MEDS: CYANOCOBALAMIN 500 MCG TAB PO SCH (08:50)
[2021-03-31] MEDS: SALIVA SUBSTITUTE(MOUTHKOTE) BTL MT SCH (08:51)
[2021-03-31] MEDS: HYDROXYUREA 500 MG CAP PO SCH (08:51)
[2021-03-31] MEDS: CALCIUM/VITAMIN D 500 MG TAB PO SCH (08:51)
[2021-03-31] MEDS: lisinopriL 40 MG TAB PO SCH (08:52)
[2021-03-31] MEDS: HEPARIN SOD (PORCINE) 5000UNITS/ML 1ML VIAL/SYRINGE SC SCH (08:52)
[2021-03-31] MEDS: SANTYL OINT 30GM TOP SCH (08:52)
[2021-03-31] MEDS: MIRALAX *UNIT DOSE* 17GM PACKET PO SCH (08:52)
[2021-03-31] MEDS: oxyCODONE 5MG TAB PO PRN (11:10)
--- NOTE | 2021-04-03 15:09 | IPNPDOC ---
PM&R Progress Note DATE OF SERVICE: Mar 27, 2021 Speech Therapist Progress Note Subjective: Patient stating she is interested in lowering her evening dose of requip to see if hit helps with her her dry mouth. REVIEW OF SYSTEMS: The following is a completed review of systems and has been reviewed. Review of systems otherwise unremarkable. PAIN: Patient self reports non-radiating low back pain with movement EYES: No recent vision changes EARS, NOSE, & THROAT: No throat pain, or dysphagia, or rhinorrhea, + dry mouth (chronic) CARDIOVASCULAR: Denies chest pain or palpitations PULMONARY: Denies shortness of breath GASTROINTESTINAL: +constipation (resolved) GENITOURINARY: denies dysuria MUSCULOSKELETAL: generalized weakness, T12 compression fracture NEUROLOGICAL: denies paresthesias, + restless leg HEMATOLOGICAL: denies easy bruising SKIN: denies rash PSYCHIATRIC: Unremarkable All other review of systems found to be negative. PHYSICAL EXAMINATION: VITAL SIGNS: Please see below. GENERAL: Pleasant and cooperative. No acute distress. HEENT: PERRL. Extraocular movements intact. Clear conjunctiva, dry mucosa CARDIOVASCULAR: Regular rate and rhythm. No murmurs, rubs, or gallops LUNGS: Clear to auscultation bilaterally. No wheezes. No rhonchi ABDOMEN: Soft, nontender, nondistended. Positive bowel sounds. Normal active bowel sounds NEUROLOGICAL: Alert and oriented times three. Cranial nerves II through XII grossly intact. 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 4/5 strength in left lower extremity. Left anterior sosa with exudative (less) incision site (maceration improved) ASSESSMENT:86-year-old F with past medical history of HTN who presents status post fall with T12 compression fracture with intractable low back pain and difficulty ambulating PLAN: 1. Rehab- PT/OT advance mobilty and ADLs, TLSO when out of bed (discussed with Becka's nurse, ok to remove when in bed to avoid skin breakdown and limit anxiety with resulting elevated BPs) 3. Ortho- s/p fall with T12 compression fracture, c/u intranasal calcitonin for acute bone pain, c/u standing Tylenol 1gm TID, and oxycodone prn, tizanidine ordered prn as well 4. neuro- patient on high dose of requip for her RLS, this may be contributing to her xerostomia and episodes of visual hallucinations (patient reported 2 episodes)- will refer to neuro on d/c as will benefit from formal cog/dementia work-up and have her Requip dosing reviewed- reviewed overall case with daughter Dionne)- patient requesting to decrease evening requip dosing to 2mg 4. Cardiac- hx of HTN, with elevated BPs possibly due to pain/anxiety from fracture/brace, BPs improving, c/u coreg, lisinopril, hydralazine, and amlodipine -per last ECHO patient with grade 1 diastolic CHF, will monitor for fluid overload to see if diuretic, daily weights and fluid restrict (stopped HCTZ due to hyponatremia) -HLD- cu statin 5. Resp- hx of COPD not on 02, monitor for infection, c/u spiriva and advair 6. Heme- hx of thrombocytosis on hydroxyurea and ASA 162mg daily (PMD's office called back today to clarify ASA dosing and reason for its use)- platelets currently WNL 7. Pain- please see ortho 8. DVT ppx- heparin and TEDs 9. Psych- celexa 10. Derm- patient underwent Mohs procedure end of February with poor healing incision site, c/u Santyl and increase dressing changes to BID per instructions- wound appears to be healing well 11. Hyponatremia- mild and likely due to recent HTZ use to help manage BPs which has been stopped, will monitor- no seizure activity 11. Dispo- 03-31-21 to home, progressing towards goals Allergies Coded Allergies: No Known Allergies (Unverified , 01/28/20) Vital Signs Vital Signs Date Time Temp Pulse Resp B/P (MAP) Pulse Ox O2 Delivery O2 Flow Rate FiO2 03/31/21 12:00 18 03/31/21 08:50 66 150/70 03/31/21 06:16 97.3 97 Room Air Current Medications Current Medications Current Medications Medications (Trade) Dose Ordered Sig/Sanya Route PRN Reason Start Time Stop Time Status Last Admin Dose Admin Acetaminophen (Tylenol Tab) 1,000 mg TID PO 03/20/21 16:00 03/31/21 13:24 DC 03/31/21 08:49 Amlodipine Besylate (Norvasc) 10 mg DAILY PO 03/24/21 09:00 03/31/21 13:24 DC 03/31/21 08:51 Amlodipine Besylate (Norvasc) 10 mg QHS PO 03/22/21 21:00 03/22/21 16:39 DC Aspirin (Ecotrin) 81 mg BID PO 03/20/21 21:00 03/21/21 13:19 DC 03/21/21 07:42 Aspirin (Ecotrin) 162 mg QAM PO 03/22/21 09:00 03/31/21 13:24 DC 03/31/21 08:48 Atorvastatin Calcium (Lipitor) 10 mg MoTuWeThFr@0900 PO 03/21/21 09:00 03/31/21 13:24 DC 03/31/21 08:49 Bisacodyl (Dulcolax Suppository) 10 mg DAILYPRN PRN [place] CONSTIPATION 03/20/21 15:55 03/31/21 13:24 DC Bupropion HCl (Wellbutrin Xl) 150 mg DAILY PO 03/21/21 09:00 03/31/21 13:24 DC 03/31/21 08:49 Calcitonin [place] (Miacalcin (Fortical)) 1 sprays DAILY NA 03/21/21 09:00 03/27/21 09:01 DC 03/27/21 09:00 Calcium/Vitamin D (Oscal D) 500 mg BID PO 03/20/21 21:00 03/31/21 13:24 DC 03/30/21 07:39 Carvedilol (COReg) 25 mg BID PO 03/20/21 21:00 03/31/21 13:24 DC 03/31/21 08:50 Citalopram Hydrobromide (CeleXA) 40 mg DAILY PO 03/21/21 09:00 03/31/21 13:24 DC 03/31/21 08:49 Collagenase (SantyL) 1 dose BID TOP 03/25/21 09:00 03/31/21 13:24 DC 03/31/21 08:52 Cyanocobalamin (Vitamin B12) 1,000 mcg DAILY PO 03/21/21 09:00 03/31/21 13:24 DC 03/31/21 08:50 Docusate Sodium (Colace) 100 mg BID PO 03/20/21 21:00 03/31/21 13:24 DC 03/31/21 08:49 Heparin Sodium (Porcine) (Heparin) 5,000 units Q12H SC 03/20/21 21:00 03/31/21 13:24 DC 03/30/21 20:20 Hydralazine HCl (Apresoline) 12.5 mg Q8H PO 03/28/21 14:00 03/31/21 13:24 DC 03/31/21 05:55 Hydralazine HCl (Apresoline) 25 mg Q6H PO 03/21/21 18:00 03/22/21 10:22 DC 03/22/21 09:40 Hydralazine HCl (Apresoline) 50 mg Q6H PO 03/22/21 18:00 03/22/21 16:39 DC Hydrochlorothiazide (Hydrodiuril) 12.5 mg DAILY PO 03/25/21 12:00 03/28/21 09:39 DC 03/28/21 08:35 Hydroxyurea (Hydrea) 1,000 mg SuTuWeFrSa@0900 PO 03/21/21 09:00 03/31/21 13:24 DC 03/30/21 07:39 Hydroxyurea (Hydrea) 1,500 mg MoTh@0900 PO 03/24/21 09:00 03/31/21 13:24 DC 03/31/21 08:51 Lisinopril (Prinivil) 20 mg DAILY PO 03/21/21 09:00 03/22/21 09:29 DC 03/22/21 07:12 Lisinopril (Prinivil) 40 mg DAILY PO 03/23/21 09:00 03/31/21 13:24 DC 03/31/21 08:52 Multivitamins (Fruity Chews-Children'S) 1 tab DAILY PO 03/26/21 09:00 03/31/21 13:24 DC 03/31/21 08:49 Multivitamins (Theragram-M) 1 tab DAILY PO 03/21/21 09:00 03/25/21 12:44 DC 03/25/21 09:50 Oxycodone HCl (Roxicodone, Oxyir) 5 mg Q4HP PRN PO PAIN 03/20/21 15:55 03/31/21 13:24 DC 03/31/21 11:10 Pantoprazole Sodium (Protonix) 40 mg DAILY PO 03/21/21 09:00 03/31/21 13:24 DC 03/31/21 08:49 Polyethylene Glycol (Miralax) 1 pkt DAILY PO 03/21/21 12:35 03/31/21 13:24 DC 03/28/21 08:35 Polyethylene Glycol (Miralax) 1 pkt DAILY PRN PO CONSTIPATION 03/20/21 15:55 03/21/21 12:33 DC Ropinirole HCl (Requip) 2 mg 1400 PO 03/21/21 14:00 03/31/21 13:24 DC 03/30/21 13:26 Ropinirole HCl (Requip) 2 mg QHS PO 03/27/21 21:00 03/31/21 13:24 DC 03/30/21 20:21 Ropinirole HCl (Requip) 4 mg QHS PO 03/20/21 21:00 03/27/21 08:24 DC 03/26/21 21:46 Saliva Substitute (Mouthkote) 2 sprays QID MT 03/21/21 17:00 03/31/21 13:24 DC 03/30/21 20:22 Salmeterol Xinafoate/ Fluticasone (Advair Hfa 230/ ) 2 puff RBID INH 03/20/21 20:00 03/31/21 13:24 DC 03/31/21 07:19 Senna (Senokot) 1 tab QHS PO 03/20/21 21:00 03/31/21 13:24 DC 03/29/21 20:16 Tiotropium [place] (Spiriva Handihaler) 1 inhalation DAILY@08 INH 03/21/21 08:00 03/31/21 13:24 DC 03/31/21 07:19 Tizanidine HCl (Zanaflex) 2 mg Q6HP PRN PO SPASMS 03/20/21 15:55 03/26/21 10:25 DC 03/21/21 10:23 Vitamin D (Vitamin D) 1,000 units DAILY PO 03/21/21 09:00 03/31/21 13:24 DC 03/31/21 08:49 ANGELA ROGERS MD Apr 03, 2021 15:09
--- NOTE | 2021-04-03 16:16 | PMRDS ---
NAME: PREETI HADLEY [facility] WT ID#: [id number] : [id number] JOB: [id number] DWIGHT: 03/31/2021 ACCT: [id number] DOCTOR: ANGELA ROGERS MD PMR DISCHARGE SUMMARY DATE OF ADMISSION: 03/20/2021 DATE OF DISCHARGE: 03/31/2021 CHIEF COMPLAINT: T12 compression fracture. HISTORY OF PRESENT ILLNESS: An 86-year-old female with a past medical history of hypertension, hyperlipidemia, thrombocytopenia, chronic obstructive pulmonary disease (COPD), pacemaker for tachy-renee syndrome, paroxysmal supraventricular tachycardia (SVT), chronic constipation, osteoporosis, who fell at home 03/06/2021 and was ultimately diagnosed with a T12 compression fracture and was evaluated by Yasmeen Eng at [facility], who prescribed a thoracic lumbosacral orthosis (TLSO) brace. Patient, however, was unable to manage the brace at home, had difficulty with pain, poor oral intake with dehydration and constipation, and was admitted for intractable back pain. She was noted to have leukocytosis with anemia in addition to hyponatremia. She received intravenous fluids (IVF) for dehydration, oral pain medications. Evaluated by therapy and found to have significant mobility and activities of daily living (ADL) impairments and deemed medically appropriate for discharge to acute rehabilitation unit (ARU). PAST MEDICAL HISTORY: As per history of present illness (HPI). HOSPITAL COURSE: Patient was admitted and enrolled in a comprehensive physical therapy (PT)/occupational therapy (OT) program. She received 24-hour nursing supervision, and weekly team meetings were held to discuss her progress. Patient was given permission per orthopedics to wear TLSO brace only when out of bed. Her compression fracture pain was controlled with intranasal calcitonin, standing Tylenol, and infrequent use of oxycodone. Patient complained of dry mouth, which is chronic, and ultimately her Requip dosage was decreased to help with this. Patient had elevated blood pressures, which eventually did improve with various blood pressure medications. She was restarted on her hydrochlorothiazide for elevated blood pressure, however, did develop mild hyponatremia, and this was discontinued. Patient was noted to have a left lower extremity poor healing incision from her recent Mohs procedure, and dressing changes were initiated with improvement in the wound. She made steady gains in therapy. Was trained to work with her for donning and doffing of the TLSO brace, and she was deemed medically and functionally stable to return home. DISCHARGE MEDICATIONS: As per instructions. FUNCTIONAL HISTORY ON DISCHARGE: Patient was modified independent for bed mobility, ambulation, requiring some assistance with donning of the TLSO brace, otherwise modified independent. Thank you for this referral.
== END 2021-03-31 13:15 | disposition home health service (06) | DRG 561 ==
LOC: M PM&R 15:35
PROVIDERS: ADMIT Physical Medicine & Rehabilitation; ATTEND Physical Medicine & Rehabilitation
DX: S22.080D Wedge compression fracture of T11-T12 vertebra, subsequent encounter for fracture with routine healing (principal); I10 Essential (primary) hypertension; E78.5 Hyperlipidemia, unspecified; D69.6 Thrombocytopenia, unspecified; J44.9 Chronic obstructive pulmonary disease, unspecified; Z95.0 Presence of cardiac pacemaker; I49.5 Sick sinus syndrome; K59.09 Other constipation; M81.0 Age-related osteoporosis without current pathological fracture; Z74.09 Other reduced mobility; Z74.1 Need for assistance with personal care; W19.XXXD Unspecified fall, subsequent encounter; Y92.009 Unspecified place in unspecified non-institutional (private) residence as the place of occurrence of the external cause; Z79.82 Long term (current) use of aspirin; Z79.899 Other long term (current) drug therapy

== ENCOUNTER → 2021-06-23 | Outpatient (CLI) | payer MEDICARE, OTHER ==
[~2021-06-23] MED LIST changes: +AMLO1TAB25 PO; +ANAG0.5C2 PO; +ASPI-551 PO; +CITA20TA6 PO; -CITA40TA4 PO; +CITA40TA7 PO; +FURO40TA2 PO; +HYDR25TA PO; +LISI40TA4 PO; +NORV5TAB PO; +TIZA10TA PO; -TIZA4TAB4 PO; +TRAM37.53 PO
== END ==
LOC: M RAD 11:34 → M LAB 11:34
PROVIDERS: ATTEND Physician Assistant
DX: S22.080D Wedge compression fracture of T11-T12 vertebra, subsequent encounter for fracture with routine healing (principal); W18.30XD Fall on same level, unspecified, subsequent encounter; Y92.009 Unspecified place in unspecified non-institutional (private) residence as the place of occurrence of the external cause; D47.3 Essential (hemorrhagic) thrombocythemia
CPT/HCPCS: 78315; A9503

== ENCOUNTER → 2021-06-26 | Outpatient (CLI) | payer MEDICARE, OTHER ==
[2021-06-26 15:04] LABS: BASO % 0.5 % (0.0-1.0); EOS # 0.1 10^3/uL (0.0-0.5); EOS % 1.6 % (0.0-3.0); HEMATOCRIT 33.4 % (36.0-47.0); HEMOGLOBIN 10.9 g/dl (12.0-15.5); LYMPH % 15.6 % (24.0-44.0); MEAN CORPUSCULAR HEMOGLOBIN 40.5 pg (27.0-33.0); MEAN CORPUSCULAR HGB CONC 32.6 g/dl (32.0-36.5); MONO # 0.5 10^3/uL (0.0-0.8); MONO % 8.1 % (2.0-8.0); NEUTROPHILS # 4.7 10^3/uL (1.5-8.5); NEUTROPHILS % 73.4 % (36.0-66.0); PLATELET COUNT, AUTOMATED 384 10^3/uL (150-450); RED BLOOD COUNT 2.69 10^6/uL (4.00-5.40); WHITE BLOOD COUNT 6.4 10^3/uL (4.0-10.0)
[2021-06-26 15:05] LABS: MEAN CORPUSCULAR VOLUME 124.2 fl (80.0-96.0)
[2021-06-26 15:37] LABS: BILIRUBIN,TOTAL 0.8 MG/DL (0.2-1.0); CALCIUM LEVEL 9.1 MG/DL (8.8-10.2); CREATININE FOR GFR 0.98 MG/DL (0.55-1.30); POTASSIUM SERUM 4.7 MEQ/L (3.5-5.1); TOTAL PROTEIN 6.2 GM/DL (6.4-8.2)
== END ==
LOC: M LAB 14:21
PROVIDERS: ATTEND Specialist
DX: D47.3 Essential (hemorrhagic) thrombocythemia (principal)

== ENCOUNTER → 2021-06-27 | Outpatient (CLI) | payer MEDICARE, OTHER ==
[~2021-06-27] MED LIST changes: -ANAG0.5C2 PO; -CITA20TA6 PO; +CITA40TA4 PO; -CITA40TA7 PO; -FURO40TA2 PO; -NORV5TAB PO; -TIZA10TA PO; +TIZA4TAB4 PO; -TRAM37.53 PO
[2021-06-27 14:10] LABS: C REACTIVE PROTEIN QUANTITATIV 0.68 MG/DL (0.00-0.30); TOTAL PROTEIN 5.9 GM/DL (6.4-8.2)
== END ==
LOC: M LAB 12:59
PROVIDERS: ATTEND Orthopaedic Surgery
DX: S22.080D Wedge compression fracture of T11-T12 vertebra, subsequent encounter for fracture with routine healing (principal); X58.XXXD Exposure to other specified factors, subsequent encounter; Y92.89 Other specified places as the place of occurrence of the external cause; Y93.89 Activity, other specified; Y99.8 Other external cause status

== ENCOUNTER → 2021-08-04 | Outpatient (REF) | payer MEDICARE, OTHER | LOC: M WUC 21:22 | PROVIDERS: ATTEND Physician Assistant | DX: N39.0 Urinary tract infection, site not specified (principal) ==

== ENCOUNTER → 2021-10-09 | Outpatient (CLI) | payer MEDICARE, OTHER ==
[~2021-10-09] MED LIST changes: +ANAG0.5C2 PO; +CITA20TA6 PO; +NORV5TAB PO; +TRAM37.53 PO
[2021-10-09 11:16] LABS: BILIRUBIN,TOTAL 0.6 MG/DL (0.2-1.0); CALCIUM LEVEL 9.1 MG/DL (8.8-10.2); CHOLESTEROL RISK RATIO 3.857 (<5); CREATININE FOR GFR 1.14 MG/DL (0.55-1.30); GLOMERULAR FILTRATION RATE 47.9 (>32); MAGNESIUM LEVEL 2.2 MG/DL (1.8-2.4); POTASSIUM SERUM 4.5 MEQ/L (3.5-5.1); TOTAL PROTEIN 5.9 GM/DL (6.4-8.2)
== END ==
LOC: M LAB 09:55
PROVIDERS: ATTEND Internal Medicine
DX: I10 Essential (primary) hypertension (principal); E78.00 Pure hypercholesterolemia, unspecified

== ENCOUNTER → 2021-10-22 | Outpatient (CLI) | payer MEDICARE, OTHER ==
[~2021-10-22] MED LIST changes: -CITA40TA4 PO; +CITA40TA7 PO; +FURO40TA2 PO; +TIZA10TA PO; -TIZA4TAB4 PO
== END ==
LOC: M PLALAB 14:25
PROVIDERS: ATTEND Internal Medicine
DX: I50.33 Acute on chronic diastolic (congestive) heart failure (principal); I11.0 Hypertensive heart disease with heart failure; D47.1 Chronic myeloproliferative disease
CPT/HCPCS: 36415; 80048; 83735; 83880; 85025; 99496; G0463

== ENCOUNTER → 2021-10-22 | Outpatient (REF) | payer MEDICARE, OTHER | LOC: M SFHCPLAZ 14:11 | PROVIDERS: ATTEND Internal Medicine | DX: I50.33 Acute on chronic diastolic (congestive) heart failure (principal); I11.0 Hypertensive heart disease with heart failure ==

== ENCOUNTER → 2021-10-29 | Outpatient (REF) | payer MEDICARE, OTHER ==
[2021-10-29 10:28] LABS: ALBUMIN 3.1 GM/DL (3.2-5.2); BILIRUBIN,TOTAL 0.4 MG/DL (0.2-1.0); CALCIUM LEVEL 9.4 MG/DL (8.8-10.2); CHOLESTEROL RISK RATIO 3.576 (<5); CREATININE FOR GFR 1.25 MG/DL (0.55-1.30); GLOMERULAR FILTRATION RATE 43.1 (>32); MAGNESIUM LEVEL 2.6 MG/DL (1.8-2.4); POTASSIUM SERUM 4.2 MEQ/L (3.5-5.1); TOTAL PROTEIN 5.9 GM/DL (6.4-8.2)
== END ==
LOC: M SHH 09:20
PROVIDERS: ATTEND Internal Medicine
DX: I10 Essential (primary) hypertension (principal); E78.00 Pure hypercholesterolemia, unspecified; I50.33 Acute on chronic diastolic (congestive) heart failure

== ENCOUNTER → 2021-11-25 | Outpatient (REF) | payer MEDICARE, OTHER | LOC: M LAB REF 14:25 | PROVIDERS: ATTEND Internal Medicine | DX: I50.33 Acute on chronic diastolic (congestive) heart failure (principal) ==

== ENCOUNTER → 2022-02-09 | Outpatient (REF) | payer MEDICARE, OTHER ==
[~2022-02-09] MED LIST changes: -D31000TA2 PO; +ULTR1TAB PO; -ULTR37.54 PO; +VITA100093 PO
== END ==
LOC: M SFHCDERM 14:24
PROVIDERS: ATTEND Physician Assistant
DX: D49.2 Neoplasm of unspecified behavior of bone, soft tissue, and skin (principal); L57.0 Actinic keratosis

== ENCOUNTER → 2022-02-24 | Outpatient (CLI) | payer MEDICARE, OTHER ==
[2022-02-24 10:25] LABS: ALBUMIN 3.5 GM/DL (3.2-5.2); BILIRUBIN,TOTAL 0.6 MG/DL (0.2-1.0); CALCIUM LEVEL 9.4 MG/DL (8.8-10.2); CHOLESTEROL RISK RATIO 3.912 (<5); CREATININE FOR GFR 1.34 MG/DL (0.55-1.30); GLOMERULAR FILTRATION RATE 39.6 (>32); MAGNESIUM LEVEL 2.6 MG/DL (1.8-2.4); TOTAL PROTEIN 6.2 GM/DL (6.4-8.2)
== END ==
LOC: M LAB 09:11
PROVIDERS: ATTEND Internal Medicine
DX: I11.0 Hypertensive heart disease with heart failure (principal); E78.00 Pure hypercholesterolemia, unspecified

== ENCOUNTER → 2022-03-26 | Outpatient (REF) | payer MEDICARE, OTHER ==
[~2022-03-26] MED LIST changes: +BACI50OI TOP; +PANT40TA29 PO; +SUCR1TA PO; +VITA200028 PO
== END ==
LOC: M LAB REF 08:15
PROVIDERS: ATTEND Surgery
DX: C44.629 Squamous cell carcinoma of skin of left upper limb, including shoulder (principal)

== ENCOUNTER 2022-03-28 18:58 | Observation (INO) | payer MEDICARE, OTHER ==
[~2022-03-28] VITALS: Ht 162.6 cm; Wt 60.2 kg
[~2022-03-28 18:58] MED LIST changes: -BACI50OI TOP; -PANT40TA29 PO; -SUCR1TA PO; -VITA200028 PO
[2022-03-28] MEDS ORDERED: AMLO1TAB24 PO (19:31)
[2022-03-28] MEDS ORDERED: ASPIRIN 81 MG CHEW TABLET PO ONE (20:00)
[2022-03-28] MEDS ORDERED: NITROGLYCERIN 0.4 MG SUBL TABLET SL PRN (20:00)
[2022-03-28 20:12] LABS: BASO % 0.5 % (0.0-1.0); EOS # 0.1 10^3/uL (0.0-0.5); EOS % 1.4 % (0.0-3.0); HEMATOCRIT 35.3 % (36.0-47.0); HEMOGLOBIN 11.6 g/dl (12.0-15.5); LYMPH # 1.1 10^3/uL (1.5-5.0); LYMPH % 12.5 % (24.0-44.0); MEAN CORPUSCULAR HEMOGLOBIN 37.2 pg (27.0-33.0); MEAN CORPUSCULAR HGB CONC 32.9 g/dl (32.0-36.5); MEAN CORPUSCULAR VOLUME 113.1 fl (80.0-96.0); MONO # 0.6 10^3/uL (0.0-0.8); MONO % 7.2 % (2.0-8.0); NEUTROPHILS # 6.6 10^3/uL (1.5-8.5); NEUTROPHILS % 77.8 % (36.0-66.0); PLATELET COUNT, AUTOMATED 470 10^3/uL (150-450); RED BLOOD COUNT 3.12 10^6/uL (4.00-5.40); WHITE BLOOD COUNT 8.5 10^3/uL (4.0-10.0)
[2022-03-28 20:32] LABS: INR 0.99; PROTHROMBIN TIME 13.5 SECONDS (12.7-14.5)
[2022-03-28 20:33] LABS: PARTIAL THROMBOPLASTIN TIME 34.3 SECONDS (25.9-37.0)
[2022-03-28 20:36] LABS: MB/CK RELATIVE INDEX 1.89 (< OR =4)
[2022-03-28 20:46] LABS: ALBUMIN 3.1 GM/DL (3.2-5.2); BILIRUBIN,DIRECT 0.1 MG/DL (0.0-0.2); BILIRUBIN,TOTAL 0.5 MG/DL (0.2-1.0); CALCIUM LEVEL 9.3 MG/DL (8.8-10.2); CREATININE FOR GFR 1.23 MG/DL (0.55-1.30); FREE T4 0.97 NG/DL (0.76-1.46); GLOMERULAR FILTRATION RATE 43.8 (>32); THYROID STIMULATING HORMONE 4.48 uIU/ML (0.358-3.740); TOTAL PROTEIN 6.3 GM/DL (6.4-8.2)
[2022-03-28 20:54] LABS: RSV AMPLIFICATION NEGATIVE (NEGATIVE)
[2022-03-28 22:13] LABS: CK-MB VALUE MASS < 1.0 NG/ML (<3.6); CPK CREATINE PHOSPHOKINASE 68 U/L (26-192); MB/CK RELATIVE INDEX 1.47 (< OR =4)
[2022-03-28] MEDS ORDERED: rOPINIRole 2MG TAB PO ONE (23:00)
[2022-03-28 23:39] LABS: CK-MB VALUE MASS 1.1 NG/ML (<3.6)
[2022-03-28] MEDS ORDERED: LABETALOL 100MG/20ML VIAL IV STA (23:54)
[2022-03-29] VITALS (14 sets, daily range): BP systolic 107–178; BP diastolic 55–80; O2SAT 90–93
[2022-03-29] MEDS ORDERED: ACETAMINOPHEN TAB 650MG DOSE (2X325MG) PO PRN (00:50)
[2022-03-29] MEDS ORDERED: HYDR500C3 PO (01:52)
[2022-03-29] MEDS ORDERED: FURO40TA2 PO (01:52)
[2022-03-29] MEDS ORDERED: VITA200028 PO (01:52)
[2022-03-29] MEDS ORDERED: CITA40TA7 PO (01:55)
[2022-03-29] MEDS ORDERED: HOME MED LIST COMPLETE! XX SCH (02:00)
[2022-03-29] MEDS ORDERED: ULTRACET TAB PO PRN (03:20)
[2022-03-29] MEDS ORDERED: LABETALOL 100MG/20ML VIAL IV STA (03:27)
[2022-03-29] MEDS ORDERED: hydrALAZINE 20MG/ML 1ML VIAL (J0360 PER 20MG) IV STA (03:53)
[2022-03-29 05:39] LABS: HEMATOCRIT 37.1 % (36.0-47.0); HEMOGLOBIN 12.2 g/dl (12.0-15.5); MEAN CORPUSCULAR HEMOGLOBIN 36.5 pg (27.0-33.0); MEAN CORPUSCULAR HGB CONC 32.9 g/dl (32.0-36.5); MEAN CORPUSCULAR VOLUME 111.1 fl (80.0-96.0); PLATELET COUNT, AUTOMATED 464 10^3/uL (150-450); RED BLOOD COUNT 3.34 10^6/uL (4.00-5.40); WHITE BLOOD COUNT 8.6 10^3/uL (4.0-10.0)
[2022-03-29 06:00] LABS: CALCIUM LEVEL 8.8 MG/DL (8.8-10.2); CREATININE FOR GFR 1.05 MG/DL (0.55-1.30); GLOMERULAR FILTRATION RATE 52.5 (>32)
[2022-03-29] MEDS ORDERED: FUROSEMIDE 40MG/4ML VIAL (J1940) IV ONE (06:00)
[2022-03-29] MEDS: BACITRACIN OINTMENT 30GM TUBE TOP SCH (08:27)
[2022-03-29] MEDS: ASPIRIN 81MG ENTERIC TABLET PO SCH ×2 (08:27→20:51)
[2022-03-29] MEDS: HYDROXYUREA 500 MG CAP PO SCH (08:27)
[2022-03-29] MEDS: CARVedilol 12.5 MG TAB PO SCH ×2 (08:28→20:51)
[2022-03-29] MEDS: CYANOCOBALAMIN 500 MCG TAB PO SCH (08:28)
[2022-03-29] MEDS: CitaloPRAM (CeleXA) 20 MG TAB PO SCH (08:28)
[2022-03-29] MEDS: MULTIVITAMINS/MINERALS THERAP 1 TAB PO SCH (08:28)
[2022-03-29] MEDS ORDERED: FUROSEMIDE 40 MG TAB PO SCH (09:00)
[2022-03-29] MEDS ORDERED: MAALOX 30 ML SUSP *UDC PO ONE ×2 (09:40→14:50)
[2022-03-29] MEDS ORDERED: rOPINIRole 2MG TAB PO PRN (09:53)
[2022-03-29] MEDS: PANTOPRAZOLE 40MG TAB (PROTONIX) PO SCH (10:12)
[2022-03-29] MEDS: ENOXAPARIN 40MG/0.4ML SYRINGE (J1650 PER 10MG) SC SCH (10:55)
[2022-03-29] MEDS: ADVAIR HFA 115/21MCG INHALER INH SCH ×2 (11:09→20:05)
[2022-03-29] MEDS: SUCRALFATE 1 GM TAB PO SCH (17:14)
[2022-03-29] MEDS ORDERED: MIRALAX *UNIT DOSE* 17GM PACKET PO PRN (20:30)
[2022-03-29] MEDS ORDERED: rOPINIRole 0.25 MG TAB(REQUIP) PO SCH (21:00)
[2022-03-29] MEDS ORDERED: amLODIPine 5 MG TAB PO SCH (21:00)
[2022-03-29] MEDS ORDERED: ROPINIROLE 4 MG PO SCH (21:00)
[2022-03-29] MEDS ORDERED: IPRATROPIUM 0.5MG/ALBUTEROL 2.5MG INH SOL UD 3ML (DUONEB) NEB PRN (23:50)
[2022-03-30] VITALS (10 sets, daily range): BP systolic 124–170; BP diastolic 58–84; O2SAT 91–95
[2022-03-30] MEDS ORDERED: amLODIPine 5 MG TAB PO ONE (04:00)
[2022-03-30] MEDS: ADVAIR HFA 115/21MCG INHALER INH SCH (07:45)
[2022-03-30] MEDS: SUCRALFATE 1 GM TAB PO SCH (08:27)
[2022-03-30] MEDS: ASPIRIN 81MG ENTERIC TABLET PO SCH (08:27)
[2022-03-30] MEDS: CYANOCOBALAMIN 500 MCG TAB PO SCH (08:27)
[2022-03-30] MEDS: HYDROXYUREA 500 MG CAP PO SCH (08:27)
[2022-03-30] MEDS: CitaloPRAM (CeleXA) 20 MG TAB PO SCH (08:27)
[2022-03-30] MEDS: MULTIVITAMINS/MINERALS THERAP 1 TAB PO SCH (08:27)
[2022-03-30] MEDS: PANTOPRAZOLE 40MG TAB (PROTONIX) PO SCH (08:27)
[2022-03-30] MEDS: CARVedilol 12.5 MG TAB PO SCH (08:28)
[2022-03-30] MEDS: ENOXAPARIN 40MG/0.4ML SYRINGE (J1650 PER 10MG) SC SCH (08:28)
[2022-03-30] MEDS: BACITRACIN OINTMENT 30GM TUBE TOP SCH (08:28)
[2022-03-30] MEDS ORDERED: FUROSEMIDE 40 MG TAB PO SCH (09:00)
[2022-03-30] MEDS ORDERED: PANT40TA29 PO (09:22)
[2022-03-30] MEDS ORDERED: SUCR1TA PO (09:22)
[2022-03-30] MEDS ORDERED: BACI50OI TOP (09:22)
== END 2022-03-30 10:58 | disposition home or self-care (01) ==
LOC: M ED 18:58 → M ED INP 18:59 → ENRESERV 03-29 02:09 → M PCU 03-29 03:13
PROVIDERS: ADMIT Internal Medicine; ATTEND Internal Medicine
DX: I16.0 Hypertensive urgency (principal); R07.89 Other chest pain; K29.70 Gastritis, unspecified, without bleeding; I11.9 Hypertensive heart disease without heart failure; E78.5 Hyperlipidemia, unspecified; G25.81 Restless legs syndrome; J44.9 Chronic obstructive pulmonary disease, unspecified; F32.A Depression, unspecified; M81.0 Age-related osteoporosis without current pathological fracture; I50.30 Unspecified diastolic (congestive) heart failure; M48.00 Spinal stenosis, site unspecified; N81.4 Uterovaginal prolapse, unspecified; M19.90 Unspecified osteoarthritis, unspecified site; Z85.828 Personal history of other malignant neoplasm of skin; Z95.0 Presence of cardiac pacemaker; Z79.82 Long term (current) use of aspirin; Z79.899 Other long term (current) drug therapy; Z88.8 Allergy status to other drugs, medicaments and biological substances
CPT/HCPCS: 36415; 71045; 71046; 80048; 80076; 82550; 82553; 83690; 83880; 84145; 84439; 84443; 84484; 85025; 85027; 85610; 85730; 87631; 93005; 93041; 94640; 94760; 96372; 96374; 96375; 96376; 99285; G0378; J0360; J1650; J1940

== ENCOUNTER → 2022-04-28 | Outpatient (CLI) | payer MEDICARE, OTHER ==
[~2022-04-28] MED LIST changes: +BACI50OI TOP; +CHLO15TA; +PANT40TA29 PO; +SUCR1TA PO; +VITA200028 PO
== END ==
LOC: M PAIN 08:30
PROVIDERS: ATTEND Nurse Practitioner Family
DX: M96.1 Postlaminectomy syndrome, not elsewhere classified (principal); M54.50 Low back pain, unspecified; D47.1 Chronic myeloproliferative disease; Z85.828 Personal history of other malignant neoplasm of skin; I10 Essential (primary) hypertension; J44.9 Chronic obstructive pulmonary disease, unspecified; F34.1 Dysthymic disorder; E78.00 Pure hypercholesterolemia, unspecified; G25.81 Restless legs syndrome; I49.5 Sick sinus syndrome; L57.0 Actinic keratosis; M25.552 Pain in left hip; Z87.891 Personal history of nicotine dependence; Z79.82 Long term (current) use of aspirin; Z79.891 Long term (current) use of opiate analgesic; Z79.899 Other long term (current) drug therapy

== ENCOUNTER → 2022-04-30 | Outpatient (CLI) | payer MEDICARE, OTHER ==
[2022-04-30 11:20] LABS: HEMATOCRIT 36.3 % (36.0-47.0); HEMOGLOBIN 11.7 g/dl (12.0-15.5); MEAN CORPUSCULAR HGB CONC 32.2 g/dl (32.0-36.5); MEAN CORPUSCULAR VOLUME 114.9 fl (80.0-96.0); PLATELET COUNT, AUTOMATED 470 10^3/uL (150-450); RED BLOOD COUNT 3.16 10^6/uL (4.00-5.40); WHITE BLOOD COUNT 9.1 10^3/uL (4.0-10.0)
== END ==
LOC: M LAB 10:36
PROVIDERS: ATTEND Internal Medicine Hematology
DX: I10 Essential (primary) hypertension (principal)

== ENCOUNTER → 2022-05-08 | Outpatient (CLI) | payer MEDICARE, OTHER | LOC: M RAD 15:19 | PROVIDERS: ATTEND Nurse Practitioner Family | DX: M48.04 Spinal stenosis, thoracic region (principal); E04.1 Nontoxic single thyroid nodule; I51.7 Cardiomegaly; I25.10 Atherosclerotic heart disease of native coronary artery without angina pectoris; I70.0 Atherosclerosis of aorta; M96.1 Postlaminectomy syndrome, not elsewhere classified ==

== ENCOUNTER → 2022-06-03 | Outpatient (REF) | payer MEDICARE, OTHER | LOC: M SFHCDERM 13:04 | PROVIDERS: ATTEND Nurse Practitioner Family | DX: C44.42 Squamous cell carcinoma of skin of scalp and neck (principal) ==

== ENCOUNTER → 2022-06-10 | Outpatient (CLI) | payer MEDICARE, OTHER | LOC: M PAIN 11:00 | PROVIDERS: ATTEND Anesthesiology | DX: M79.18 Myalgia, other site (principal); G89.29 Other chronic pain; I10 Essential (primary) hypertension; J44.9 Chronic obstructive pulmonary disease, unspecified; G25.81 Restless legs syndrome; Z95.0 Presence of cardiac pacemaker; Z86.59 Personal history of other mental and behavioral disorders; Z96.642 Presence of left artificial hip joint; Z96.653 Presence of artificial knee joint, bilateral; Z87.891 Personal history of nicotine dependence; Z79.51 Long term (current) use of inhaled steroids; Z79.82 Long term (current) use of aspirin; Z79.899 Other long term (current) drug therapy ==

== ENCOUNTER → 2022-07-05 | Outpatient (CLI) | payer MEDICARE, OTHER | LOC: M LABSMTC 10:44 | PROVIDERS: ATTEND Anesthesiology | DX: Z01.812 Encounter for preprocedural laboratory examination (principal); Z20.822 Contact with and (suspected) exposure to COVID-19 ==

== ENCOUNTER → 2022-07-09 | Outpatient (CLI) | payer MEDICARE, OTHER ==
[~2022-07-09] MED LIST changes: +BUPIVACAINE HCL 0.25% 10ML VIAL As Ordered ONE; +BUPIVACAINE HCL 0.25% 30ML VIAL As Ordered ONE; +TRIAMCINOLONE ACETONIDE SUSP 40 MG/ML VIAL (J3301) As Ordered ONE
== END ==
LOC: M PAIN 10:00
PROVIDERS: ATTEND Anesthesiology
DX: M79.18 Myalgia, other site (principal); I10 Essential (primary) hypertension; D47.1 Chronic myeloproliferative disease; J44.9 Chronic obstructive pulmonary disease, unspecified; F32.A Depression, unspecified; F41.9 Anxiety disorder, unspecified; E78.00 Pure hypercholesterolemia, unspecified; M81.0 Age-related osteoporosis without current pathological fracture; Z85.828 Personal history of other malignant neoplasm of skin; Z86.010 Personal history of colon polyps; G25.81 Restless legs syndrome; I49.5 Sick sinus syndrome; L57.0 Actinic keratosis; M54.50 Low back pain, unspecified; Z79.82 Long term (current) use of aspirin; Z79.891 Long term (current) use of opiate analgesic; Z79.899 Other long term (current) drug therapy
CPT/HCPCS: 20552; J3301

== ENCOUNTER → 2022-07-23 | Outpatient (CLI) | payer MEDICARE, OTHER ==
[~2022-07-23] MED LIST changes: -BUPIVACAINE HCL 0.25% 10ML VIAL As Ordered ONE; -BUPIVACAINE HCL 0.25% 30ML VIAL As Ordered ONE; -TRIAMCINOLONE ACETONIDE SUSP 40 MG/ML VIAL (J3301) As Ordered ONE
== END ==
LOC: M PAIN 14:45
PROVIDERS: ATTEND Nurse Practitioner Family
DX: M79.10 Myalgia, unspecified site (principal); M47.816 Spondylosis without myelopathy or radiculopathy, lumbar region; G89.29 Other chronic pain; I10 Essential (primary) hypertension; J44.9 Chronic obstructive pulmonary disease, unspecified; G25.81 Restless legs syndrome; Z95.0 Presence of cardiac pacemaker; Z86.59 Personal history of other mental and behavioral disorders; Z96.642 Presence of left artificial hip joint; Z96.653 Presence of artificial knee joint, bilateral; Z87.891 Personal history of nicotine dependence; Z79.51 Long term (current) use of inhaled steroids; Z79.82 Long term (current) use of aspirin; Z79.899 Other long term (current) drug therapy

== ENCOUNTER → 2022-08-04 | Outpatient (CLI) | payer MEDICARE, OTHER | LOC: M PAIN 09:00 | PROVIDERS: ATTEND Anesthesiology | DX: M54.50 Low back pain, unspecified (principal); M79.10 Myalgia, unspecified site; M79.18 Myalgia, other site; I10 Essential (primary) hypertension; D47.1 Chronic myeloproliferative disease; J44.9 Chronic obstructive pulmonary disease, unspecified; F32.A Depression, unspecified; F41.9 Anxiety disorder, unspecified; E78.00 Pure hypercholesterolemia, unspecified; M19.90 Unspecified osteoarthritis, unspecified site; M81.0 Age-related osteoporosis without current pathological fracture; G25.81 Restless legs syndrome; I49.5 Sick sinus syndrome; L57.0 Actinic keratosis; Z87.891 Personal history of nicotine dependence; Z85.828 Personal history of other malignant neoplasm of skin; Z86.010 Personal history of colon polyps ==

== ENCOUNTER → 2022-08-13 | Outpatient (CLI) | payer MEDICARE, OTHER | LOC: M WHC 10:41 | PROVIDERS: ATTEND Internal Medicine Hematology | DX: E04.1 Nontoxic single thyroid nodule (principal) ==

== ENCOUNTER → 2022-09-01 | Outpatient (REF) | payer MEDICARE, OTHER | LOC: M SFHCDERM 14:05 | PROVIDERS: ATTEND Dermatology | DX: C44.329 Squamous cell carcinoma of skin of other parts of face (principal) ==

== ENCOUNTER → 2022-09-16 | Outpatient (CLI) | payer MEDICARE, OTHER ==
[~2022-09-16] MED LIST changes: +LIDOCAINE 1% MDV 20ML VIAL As Ordered ONE
[2022-09-16 11:58] VITALS: BP 154/80
== END ==
LOC: M IRPRO 11:24
PROVIDERS: ATTEND Internal Medicine Hematology
DX: E04.1 Nontoxic single thyroid nodule (principal)

== ENCOUNTER 2022-10-27 20:45 | Emergency (ER) | payer MEDICARE, OTHER ==
[~2022-10-27] VITALS: Ht 162.6 cm; Wt 59.1 kg
[~2022-10-27 20:45] MED LIST changes: -LIDOCAINE 1% MDV 20ML VIAL As Ordered ONE
[2022-10-27 21:34] LABS: BASO # 0.1 10^3/uL (0.0-0.2); BASO % 0.7 % (0.0-1.0); EOS # 0.1 10^3/uL (0.0-0.5); EOS % 1.6 % (0.0-3.0); HEMATOCRIT 38.5 % (36.0-47.0); HEMOGLOBIN 12.3 g/dl (12.0-15.5); MEAN CORPUSCULAR HEMOGLOBIN 36.4 pg (27.0-33.0); MEAN CORPUSCULAR HGB CONC 31.9 g/dl (32.0-36.5); MEAN CORPUSCULAR VOLUME 113.9 fl (80.0-96.0); MONO # 0.7 10^3/uL (0.0-0.8); MONO % 7.8 % (2.0-8.0); NEUTROPHILS # 6.8 10^3/uL (1.5-8.5); NEUTROPHILS % 78.3 % (36.0-66.0); PLATELET COUNT, AUTOMATED 547 10^3/uL (150-450); RED BLOOD COUNT 3.38 10^6/uL (4.00-5.40); WHITE BLOOD COUNT 8.7 10^3/uL (4.0-10.0)
[2022-10-27 21:45] LABS: INR 0.9; PROTHROMBIN TIME 12.3 SECONDS (12.5-14.5)
[2022-10-27] MEDS ORDERED: amLODIPine 5 MG TAB PO ONE (22:00)
[2022-10-27 22:02] LABS: CK-MB VALUE MASS < 1.0 NG/ML (<3.6)
[2022-10-27 22:04] LABS: BLOOD UREA NITROGEN 26 MG/DL (9-23); CARBON DIOXIDE LEVEL 27 MMOL/L (20-31); CHLORIDE LEVEL 103 MMOL/L (98-107); GLOMERULAR FILTRATION RATE 55.6 (>32); GLUCOSE, FASTING 99 MG/DL (74-106); POTASSIUM SERUM 4.8 MMOL/L (3.5-5.1); SODIUM LEVEL 136 MMOL/L (136-145)
[2022-10-27 22:05] LABS: THYROID STIMULATING HORMONE 2.479 uIU/ML (0.55-4.78)
[2022-10-27 22:07] LABS: CPK CREATINE PHOSPHOKINASE 403 U/L (34-145); MB/CK RELATIVE INDEX 0.24 (< OR =4)
[2022-10-27 22:09] LABS: RSV AMPLIFICATION NEGATIVE (NEGATIVE)
[2022-10-27 22:40] LABS: APPEARANCE, URINE MANUAL CLEAR (CLEAR); COLOR, URINE MANUAL COLORLESS (YELLOW); GLUCOSE, URINE (UA) MANUAL NEGATIVE (NEGATIVE); KETONE, URINE MANUAL NEGATIVE (NEGATIVE); PROTEIN, URINE MANUAL NEGATIVE (NEGATIVE); SPECIFIC GRAVITY,URINE MANUAL 1.005 (1.002-1.035); UROBILINOGEN, URINE MANUAL NORMAL (NORMAL)
[2022-10-27 22:41] LABS: BILIRUBIN, URINE MANUAL NEGATIVE (NEGATIVE); LEUKOCYTE ESTERASE, URINE MAN NEGATIVE (NEGATIVE); NITRITE, URINE MANUAL NEGATIVE (NEGATIVE)
[2022-10-27 22:42] LABS: BLOOD URINE MANUAL TRACE (NEGATIVE)
[2022-10-27] MEDS ORDERED: CARVedilol 12.5 MG TAB PO ONE (22:50)
[2022-10-27 22:51] LABS: CK-MB VALUE MASS < 1.0 NG/ML (<3.6)
[2022-10-27 22:54] LABS: CPK CREATINE PHOSPHOKINASE 31 U/L (34-145); MB/CK RELATIVE INDEX 3.22 (< OR =4)
[2022-10-27 22:57] LABS: BACTERIA, URINE NONE SEEN; RBC, URINE 0-1 /hpf (0-3); SQUAMOUS EPITHELIAL CELL URINE SMALL AMOUNT /hpf (SMALL AMT); WBC, URINE NONE SEEN /hpf (0-3)
[2022-10-28 00:04] VITALS: BP 172/82
[2022-10-28 01:15] VITALS: BP 141/69
[2022-10-28] MEDS ORDERED: HYDR500C3 PO (16:33)
== END 2022-10-28 02:00 | disposition home or self-care (01) ==
LOC: EDBD 20:45 → M ED 21:45
DX: I10 Essential (primary) hypertension (principal); I49.5 Sick sinus syndrome; F32.A Depression, unspecified; J44.9 Chronic obstructive pulmonary disease, unspecified; D75.839 Thrombocytosis, unspecified; Z87.891 Personal history of nicotine dependence; Z79.51 Long term (current) use of inhaled steroids; Z79.82 Long term (current) use of aspirin; Z79.899 Other long term (current) drug therapy

== ENCOUNTER → 2022-11-30 | Outpatient (CLI) | payer MEDICARE, OTHER ==
[2022-11-30 09:35] LABS: HEMATOCRIT 40.3 % (36.0-47.0); HEMOGLOBIN 12.7 g/dl (12.0-15.5); MEAN CORPUSCULAR HGB CONC 31.5 g/dl (32.0-36.5); MEAN CORPUSCULAR VOLUME 114.2 fl (80.0-96.0); PLATELET COUNT, AUTOMATED 450 10^3/uL (150-450); RED BLOOD COUNT 3.53 10^6/uL (4.00-5.40); WHITE BLOOD COUNT 8.1 10^3/uL (4.0-10.0)
[2022-11-30 10:05] LABS: CREATININE, URINE 152.8 MG/DL; MAU/CREAT RATIO 79.8 MCG/MG (0.0-30.0)
[2022-11-30 10:08] LABS: C REACTIVE PROTEIN QUANTITATIV < 0.40 MG/DL (<1.0)
[2022-11-30 10:12] LABS: ALBUMIN 3.2 G/DL (3.2-5.2); ALKALINE PHOSPHATASE 93 U/L (46-116); ALT/SGPT 18 U/L (7.0-40); AST/SGOT 27 U/L (<34); BILIRUBIN,TOTAL 0.7 MG/DL (0.3-1.2); BLOOD UREA NITROGEN 25 MG/DL (9-23); CALCIUM LEVEL 9.4 MG/DL (8.3-10.6); CARBON DIOXIDE LEVEL 31 MMOL/L (20-31); CHLORIDE LEVEL 103 MMOL/L (98-107); CHOLESTEROL LEVEL 220 MG/DL (<200); CHOLESTEROL RISK RATIO 5.08 (<5); CREATININE FOR GFR 1.19 MG/DL (0.55-1.30); GLOMERULAR FILTRATION RATE 45.5 (>32); GLUCOSE, FASTING 94 MG/DL (74-106); HDL CHOLESTEROL 43.3 MG/DL (>40); LDL CHOLESTEROL 152.7 MG/DL (<100); NON-HDL-C 177 MG/DL; POTASSIUM SERUM 4.9 MMOL/L (3.5-5.1); SODIUM LEVEL 136 MMOL/L (136-145); THYROID STIMULATING HORMONE 2.779 uIU/ML (0.55-4.78); TOTAL 25(OH) VITAMIN D 28.5 NG/ML (20.0-100.0); TRIGLYCERIDES LEVEL 120 MG/DL (<150); VITAMIN B12 LEVEL 881 PG/ML (211-911)
[2022-11-30 10:20] LABS: HEMOGLOBIN A1c 5.1 % (4.0-6.0)
== END ==
LOC: M LAB 08:40
PROVIDERS: ATTEND Internal Medicine Hematology
DX: I10 Essential (primary) hypertension (principal)

== ENCOUNTER → 2022-12-14 | Outpatient (CLI) | payer MEDICARE, OTHER | LOC: M PAIN 07:45 | PROVIDERS: ATTEND Anesthesiology | DX: M79.10 Myalgia, unspecified site (principal); M79.18 Myalgia, other site; M54.50 Low back pain, unspecified; I10 Essential (primary) hypertension; J44.9 Chronic obstructive pulmonary disease, unspecified; D47.1 Chronic myeloproliferative disease; F32.A Depression, unspecified; F41.9 Anxiety disorder, unspecified; E78.00 Pure hypercholesterolemia, unspecified; G25.81 Restless legs syndrome; M81.0 Age-related osteoporosis without current pathological fracture; Z79.82 Long term (current) use of aspirin; Z79.891 Long term (current) use of opiate analgesic; Z79.899 Other long term (current) drug therapy | CPT/HCPCS: 76000; G0463 ==

== ENCOUNTER → 2023-01-01 | Outpatient (CLI) | payer MEDICARE, OTHER | LOC: M LABSMTC 10:50 | PROVIDERS: ATTEND Anesthesiology | DX: Z01.818 Encounter for other preprocedural examination (principal); Z20.822 Contact with and (suspected) exposure to COVID-19 ==

== ENCOUNTER → 2023-01-05 | Outpatient (CLI) | payer MEDICARE, OTHER ==
[~2023-01-05] MED LIST changes: +BUPIVACAINE HCL 0.25% 10ML VIAL As Ordered ONE; +BUPIVACAINE HCL 0.25% 30ML VIAL As Ordered ONE; +TRIAMCINOLONE ACETONIDE SUSP 40MG/ML 1ML VIAL As Ordered ONE
== END ==
LOC: M PAIN 16:15
PROVIDERS: ATTEND Anesthesiology
DX: M79.18 Myalgia, other site (principal); M54.50 Low back pain, unspecified; M79.10 Myalgia, unspecified site; I10 Essential (primary) hypertension; D47.1 Chronic myeloproliferative disease; J44.9 Chronic obstructive pulmonary disease, unspecified; F32.A Depression, unspecified; F41.9 Anxiety disorder, unspecified; E78.00 Pure hypercholesterolemia, unspecified; M19.90 Unspecified osteoarthritis, unspecified site; M81.0 Age-related osteoporosis without current pathological fracture; G25.81 Restless legs syndrome; I49.5 Sick sinus syndrome; L57.0 Actinic keratosis; Z87.891 Personal history of nicotine dependence; Z85.828 Personal history of other malignant neoplasm of skin; Z86.010 Personal history of colon polyps; Z79.82 Long term (current) use of aspirin
CPT/HCPCS: 20552; J3301